=== PATIENT | male | born 1965 | race Two or more races ===

== ENCOUNTER 2016-11-24 18:19 | Inpatient (IN) | payer MEDICAID ==
[~2016-11-24] VITALS: Ht 165.1 cm; Wt 104.6 kg
[~2016-11-24 18:19] MED LIST: AML5T PO; ASCO500T11 PO; FUR40T PO; INSLANTI SC; METHADONE PO; SPIR25TA88 PO
[2016-11-24] MEDS ORDERED: cloNIDine HCL 0.1 MG TAB PO ONE (19:15)
[2016-11-24] MEDS: ALBUTEROL SULF 2.5 MG/0.5ML(0.5%) NEB SOLN NEB ONE ×2 (19:15→19:30)
[2016-11-24] MEDS ORDERED: IPRATROPIUM BROM 0.5 MG/2.5ML INH SOL NEB ONE (19:15)
[2016-11-24 19:54] LABS: Basophils # (auto) 0 uL; Basophils % (auto) 0.4 % (0.0-2.0); Eosinophils # (auto) 0.2 uL; Eosinophils % (auto) 2.5 % (0.0-7.0); Hematocrit 32.8 % (41.0-53.0); Hemoglobin 10.5 g/dL (13.5-17.5); Lymphocytes # (auto) 1.1 uL; Lymphocytes % (auto) 12.2 % (10.0-50.0); Mean Corpuscular Hgb Conc. 32.1 g/dL (32.0-36.0); Mean Corpuscular Volume 87.3 fL (80.0-100.0); Mean Platelet Volume 8.2 fL (7.4-10.4); Monocytes # (auto) 0.7 uL; Monocytes % (auto) 7.5 % (0.0-12.0); Neutrophils # (auto) 6.9 uL; Neutrophils % (auto) 77.4 % (37.0-80.0); Platelet Count (auto) 121 10^3/uL (140-450); Red Cell Distribution Width 17.1 % (11.6-16.0); White Blood Cell 8.9 10^3/uL (4.4-10.8)
[2016-11-24 20:13] LABS: Albumin 2.7 g/dL (3.4-5.0); BUN/Creatinine Ratio 6.4; Calcium 6.5 mg/dL (8.5-10.1)
[2016-11-24 20:16] LABS: Bilirubin, Total 0.4 mg/dL (0.2-1.0); Total Protein 7.7 g/dL (6.4-8.2)
[2016-11-24 20:27] LABS: Temperature: 21.9 C (20.0-25.0)
[2016-11-24] MEDS ORDERED: ALBUTEROL SULF 2.5 MG/0.5ML(0.5%) NEB SOLN NEB STA (20:43)
[2016-11-24] MEDS ORDERED: InsuLIN REG 1unit/0.01ml Soln (100units/ml) IV ONE (20:45)
[2016-11-24] MEDS ORDERED: DEXTROSE (50%) 50ML SYRG IV ONE (20:45)
[2016-11-24] MEDS ORDERED: SODIUM POLYSTYRENE SULF 15GM/60ML SUSP PO ONE (20:45)
[2016-11-24] MEDS ORDERED: SODIUM BICARBONATE 8.4% INJ 50ML SYRINGE IV ONE (20:45)
[2016-11-24] MEDS ORDERED: CALCIUM GLUC 4.65 MEQ/10ML 4.65 MEQ in SODIUM CHL 0.9% 50 ML IV ONE (20:45)
[2016-11-24] MEDS ORDERED: CALCIUM GLUC 4.65 MEQ/10ML IV ONE (20:49)
[2016-11-24 20:52] LABS: Potassium 5.9 mmol/L (3.5-5.1)
[2016-11-24] MEDS ORDERED: ACETAMINOPHEN 325 MG TAB PO PRN (23:00)
[2016-11-24] MEDS ORDERED: DOCUSATE SOD 100 MG CAP PO PRN (23:00)
[2016-11-24] MEDS ORDERED: cloNIDine HCL 0.1 MG TAB PO PRN (23:00)
[2016-11-24] MEDS ORDERED: TEMAZEPAM 15 MG CAP PO PRN (23:00)
[2016-11-24] MEDS ORDERED: NITROGLYCERIN 0.4 MG SL TAB SL PRN (23:00)
[2016-11-24] MEDS ORDERED: HYDROcodone-ACET 5/325MG TAB PO PRN (23:00)
[2016-11-24] MEDS ORDERED: DEXTROSE (50%) 50ML SYRG IV PRN (23:00)
[2016-11-24] MEDS ORDERED: LEVOFLOXACIN 250MG 50 ML IV SCH (23:00)
[2016-11-24] MEDS ORDERED: ONDANSETRON HCL 4 MG/2 ML VIAL IV PRN (23:00)
[2016-11-24] MEDS ORDERED: MORPHINE SULF INJ 2 MG/ML SYRINGE 1ML IV PRN (23:00)
[2016-11-25 00:30] VITALS: BP 156/74
[2016-11-25] MEDS: ACCU-CHEK COMFORT CURVE STRIP VI SCH ×3 (00:44→12:03)
[2016-11-25] MEDS: InsuLIN REG 1unit/0.01ml Soln (100units/ml) SC SCH ×3 (00:45→12:00)
[2016-11-25] MEDS ORDERED: AMLO5TAB2 PO (03:06)
[2016-11-25] MEDS ORDERED: B-CO-5 OR (03:06)
[2016-11-25 05:00] VITALS: BP 180/81
[2016-11-25] MEDS: MORPHINE SULF INJ 2 MG/ML SYRINGE 1ML IV PRN ×2 (05:00→13:10)
[2016-11-25 09:00] VITALS: BP 162/80
[2016-11-25] MEDS ORDERED: ENOXAPARIN SOD 30 MG/0.3 ML SYRINGE SC SCH (10:00)
[2016-11-25] MEDS ORDERED: B-COMPLEX W/ C & FOLIC ACID(NEPHROVITE TAB) PO SCH (10:00)
[2016-11-25] MEDS ORDERED: FUROSEMIDE 40 MG TAB PO SCH (10:00)
[2016-11-25] MEDS ORDERED: amLODIPine BESYLATE 5 MG TAB PO SCH (10:00)
[2016-11-25] MEDS ORDERED: SPIRONOLACTONE 25 MG TAB PO SCH (10:00)
[2016-11-25] MEDS ORDERED: FAMOTIDINE 20 MG TAB PO SCH ×2 (10:00)
[2016-11-25 13:00] VITALS: BP 148/80
[2016-11-25 15:25] VITALS: BP 162/84
== END 2016-11-25 16:46 | disposition home or self-care (01) | DRG 140 ==
LOC: ER 18:20 → TELE 18:21 → TELE-WESTW 23:25
PROVIDERS: ADMIT Nurse Practitioner; ATTEND Internal Medicine
DX: J44.0 Chronic obstructive pulmonary disease with (acute) lower respiratory infection (principal); E43 Unspecified severe protein-calorie malnutrition; I13.2 Hypertensive heart and chronic kidney disease with heart failure and with stage 5 chronic kidney disease, or end stage renal disease; J18.9 Pneumonia, unspecified organism; N17.9 Acute kidney failure, unspecified; N18.6 End stage renal disease; E11.22 Type 2 diabetes mellitus with diabetic chronic kidney disease; E87.5 Hyperkalemia; D63.8 Anemia in other chronic diseases classified elsewhere; I50.9 Heart failure, unspecified; K76.9 Liver disease, unspecified; F17.210 Nicotine dependence, cigarettes, uncomplicated; Z83.3 Family history of diabetes mellitus; Z79.899 Other long term (current) drug therapy; Z79.4 Long term (current) use of insulin; Z82.3 Family history of stroke; Z68.38 Body mass index [BMI] 38.0-38.9, adult; Z99.2 Dependence on renal dialysis; Z80.9 Family history of malignant neoplasm, unspecified; Z91.11 Patient's noncompliance with dietary regimen
CPT/HCPCS: 36415; 70450; 71010; 80053; 82962; 83880; 84132; 84484; 85025; 87040; 87081; 94640; 96365; 96367; 96375; J1815

== ENCOUNTER 2016-12-14 19:36 | Emergency (ER) | payer MEDICAID ==
[~2016-12-14] VITALS: Ht 162.6 cm; Wt 108.9 kg
[~2016-12-14 19:36] MED LIST changes: -AML5T PO; +AMLO5TAB2 PO; -ASCO500T11 PO; +B-CO-5 OR
[2016-12-15] MEDS ORDERED: SODIUM CHLORIDE 0.9% 1,000 ML IV ONE (00:34)
[2016-12-15] MEDS ORDERED: HYDROmorphone HCL 2 MG/ML VL IV ONE (00:45)
[2016-12-15] MEDS ORDERED: ONDANSETRON HCL 4 MG/2 ML VIAL IV ONE (00:45)
[2016-12-15 01:40] LABS: Hematocrit 32.3 % (41.0-53.0); Hemoglobin 10.2 g/dL (13.5-17.5); Mean Corpuscular Hemoglobin 28.3 pg (28.0-32.0); Mean Corpuscular Hgb Conc. 31.6 g/dL (32.0-36.0); Mean Corpuscular Volume 89.4 fL (80.0-100.0); Platelet Count (auto) 119 10^3/uL (140-450); Red Cell Distribution Width 15.5 % (11.6-16.0); SUSPECT VIEW TRANSMISSION
[2016-12-15 01:43] LABS: Metamyelocytes % 0; Myelocytes % 0; Promyelocytes % 0; Reactive Lymphocytes 0
[2016-12-15 02:01] LABS: Platelet Estimate Decreased
[2016-12-15 02:04] LABS: Albumin 2.8 g/dL (3.4-5.0); BUN/Creatinine Ratio 8.1; Bilirubin, Total 0.3 mg/dL (0.2-1.0); Calcium 7.4 mg/dL (8.5-10.1); Potassium 5.4 mmol/L (3.5-5.1); Total Protein 7.7 g/dL (6.4-8.2)
[2016-12-15 02:36] LABS: Temperature: 20.9 C (20.0-25.0)
[2016-12-15] MEDS ORDERED: SODIUM POLYSTYRENE SULF 15GM/60ML SUSP PO ONE ×2 (04:00→04:30)
[2016-12-15] MEDS ORDERED: HYDROmorphone HCL 2 MG/ML VL IM ONE (04:15)
[2016-12-15] MEDS ORDERED: FUROSEMIDE 20 MG TAB PO ONE (04:15)
[2016-12-15] MEDS ORDERED: ONDANSETRON HCL 4 MG/2 ML VIAL IM ONE (04:15)
[2016-12-15 05:09] LABS: Urine Bilirubin Negative (Negative); Urine Blood Negative /uL (Negative); Urine Color Yellow (Yellow); Urine Hyaline Cast FEW /lpf (0 - 2); Urine Ketone Negative (Negative); Urine Mucus FEW (None Seen); Urine Nitrite Negative (Negative); Urine RBC 4 /hpf (0 - 3); Urine Squamous Epithelial Cell FEW /hpf (<5); Urine Urobilinogen Normal (Negative); Urine pH 8.5 (5.0-8.0)
[2016-12-15 05:10] LABS: Urine Glucose 3+ mg/dL (Normal)
[2016-12-15 05:30] VITALS: BP 161/89
== END 2016-12-15 04:20 | disposition home or self-care (01) ==
LOC: ER 19:39
DX: I13.2 Hypertensive heart and chronic kidney disease with heart failure and with stage 5 chronic kidney disease, or end stage renal disease (principal); I50.9 Heart failure, unspecified; N18.6 End stage renal disease; D63.1 Anemia in chronic kidney disease; R51 Headache; E87.5 Hyperkalemia; J44.9 Chronic obstructive pulmonary disease, unspecified; Z99.2 Dependence on renal dialysis; F17.210 Nicotine dependence, cigarettes, uncomplicated
CPT/HCPCS: 36415; 71010; 80053; 81001; 83880; 84484; 85007; 85027; 96372; 96374; 96375; 99285; J1170; J2405; 93005

== ENCOUNTER 2016-12-15 20:05 | Emergency (ER) | payer MEDICAID ==
[~2016-12-15] VITALS: Ht 172.7 cm; Wt 90.7 kg
[2016-12-15] MEDS ORDERED: HYDROmorphone HCL 2 MG/ML VL IV ONE ×2 (21:30→23:45)
[2016-12-15] MEDS ORDERED: ONDANSETRON HCL 4 MG/2 ML VIAL IV ONE (21:30)
[2016-12-15 21:50] LABS: Basophils # (auto) 0 uL; Basophils % (auto) 0.5 % (0.0-2.0); Eosinophils # (auto) 0.4 uL; Eosinophils % (auto) 5.4 % (0.0-7.0); Hematocrit 30.3 % (41.0-53.0); Hemoglobin 9.5 g/dL (13.5-17.5); Lymphocytes # (auto) 1.1 uL; Lymphocytes % (auto) 13.3 % (10.0-50.0); Mean Corpuscular Hemoglobin 27.3 pg (28.0-32.0); Mean Corpuscular Hgb Conc. 31.5 g/dL (32.0-36.0); Mean Corpuscular Volume 86.8 fL (80.0-100.0); Monocytes # (auto) 0.7 uL; Monocytes % (auto) 8.2 % (0.0-12.0); Neutrophils # (auto) 5.9 uL; Neutrophils % (auto) 72.6 % (37.0-80.0); Platelet Count (auto) 154 10^3/uL (140-450); White Blood Cell 8.1 10^3/uL (4.4-10.8)
[2016-12-15 22:06] LABS: Albumin 2.8 g/dL (3.4-5.0); BUN/Creatinine Ratio 7.5; Bilirubin, Total 0.4 mg/dL (0.2-1.0); Calcium 7.5 mg/dL (8.5-10.1); Total Protein 7.7 g/dL (6.4-8.2)
[2016-12-15 22:14] LABS: Potassium 5.6 mmol/L (3.5-5.1)
[2016-12-15] MEDS ORDERED: SODIUM POLYSTYRENE SULF 15GM/60ML SUSP PO ONE (23:45)
[2016-12-16] MEDS ORDERED: LEVOFLOXACIN 500 MG TAB PO ONE (02:45)
[2016-12-16 04:04] VITALS: BP 168/80
== END 2016-12-16 06:02 | disposition home or self-care (01) ==
LOC: EDBD 20:05 → ER 20:10
DX: J18.9 Pneumonia, unspecified organism (principal); E87.5 Hyperkalemia; R51 Headache; E11.22 Type 2 diabetes mellitus with diabetic chronic kidney disease; I13.11 Hypertensive heart and chronic kidney disease without heart failure, with stage 5 chronic kidney disease, or end stage renal disease; I50.9 Heart failure, unspecified; N18.6 End stage renal disease; F17.210 Nicotine dependence, cigarettes, uncomplicated; J44.9 Chronic obstructive pulmonary disease, unspecified; J45.909 Unspecified asthma, uncomplicated; Z99.2 Dependence on renal dialysis
CPT/HCPCS: 36415; 80053; 85025; 96374; 96375; 96376; 99284; J1170; J2405

== ENCOUNTER 2017-02-25 01:54 | Inpatient (IN) | payer MEDICAID ==
[~2017-02-25] VITALS: Ht 165.1 cm; Wt 89.2 kg
[2017-02-25 02:36] LABS: Basophils # (auto) 0 uL; Basophils % (auto) 0.3 % (0.0-2.0); Eosinophils # (auto) 0.3 uL; Eosinophils % (auto) 4.2 % (0.0-7.0); Hematocrit 34.2 % (41.0-53.0); Lymphocytes # (auto) 0.8 uL; Lymphocytes % (auto) 12.9 % (10.0-50.0); Mean Corpuscular Hemoglobin 28.6 pg (28.0-32.0); Mean Corpuscular Hgb Conc. 32.1 g/dL (32.0-36.0); Mean Corpuscular Volume 89.2 fL (80.0-100.0); Mean Platelet Volume 7.8 fL (7.4-10.4); Monocytes # (auto) 0.4 uL; Monocytes % (auto) 6.9 % (0.0-12.0); Neutrophils # (auto) 4.5 uL; Neutrophils % (auto) 75.7 % (37.0-80.0); Platelet Count (auto) 102 10^3/uL (140-450); Red Cell Distribution Width 17.1 % (11.6-16.0); White Blood Cell 5.9 10^3/uL (4.4-10.8)
[2017-02-25] MEDS ORDERED: ONDANSETRON HCL 4 MG/2 ML VIAL IV ONE (02:45)
[2017-02-25] MEDS ORDERED: HYDROmorphone HCL 2 MG/ML VL IV ONE ×2 (02:45→06:00)
[2017-02-25 02:56] LABS: INR 1.07 (0.9-1.15); Partial Thromboplastin Time 28.2 sec (22.64-33.71); Prothrombin Time 11.6 sec (9.37-12.3)
[2017-02-25 03:09] LABS: Temperature: 21.9 C (20.0-25.0)
[2017-02-25 03:11] LABS: Albumin 3.7 g/dL (3.4-5.0); Anion Gap 10 (5-15); Aspartate Aminotransferase 37 U/L (15-37); BUN/Creatinine Ratio 5.8; Blood Urea Nitrogen 33 mg/dL (7-18); Calcium 7.1 mg/dL (8.5-10.1); Carbon Dioxide 27 mmol/L (21-32); Chloride 101 mmol/L (98-107); GFR African American 13 mL/min; GFR Non-African American 11 mL/min; Glucose 89 mg/dL (74-106); Sodium 138 mmol/L (136-145)
[2017-02-25 03:16] LABS: Alkaline Phosphatase 142 U/L (45-117); Bilirubin, Total 0.6 mg/dL (0.2-1.0); Potassium 5.6 mmol/L (3.5-5.1); Total Protein 8.4 g/dL (6.4-8.2)
[2017-02-25] MEDS ORDERED: SODIUM POLYSTYRENE SULF 15GM/60ML SUSP PO ONE (03:30)
[2017-02-25] MEDS ORDERED: HYDROmorphone HCL 2 MG/ML VL ONE (05:49)
[2017-02-25 06:42] LABS: Albumin 3.5 g/dL (3.4-5.0); BUN/Creatinine Ratio 6.4; Bilirubin, Total 0.5 mg/dL (0.2-1.0); Total Protein 8.2 g/dL (6.4-8.2)
[2017-02-25 06:49] LABS: Potassium 5.9 mmol/L (3.5-5.1)
[2017-02-25] MEDS ORDERED: ALBUTEROL SULF 2.5 MG/0.5ML(0.5%) NEB SOLN NEB STA (07:37)
[2017-02-25] MEDS ORDERED: CALCIUM GLUC 4.65 MEQ/10ML 4.65 MEQ in SODIUM CHL 0.9% 50 ML IV ONE ×2 (07:45→11:15)
[2017-02-25] MEDS ORDERED: DEXTROSE (50%) 50ML SYRG IV ONE ×2 (07:45→09:30)
[2017-02-25] MEDS ORDERED: FUROSEMIDE 40 MG/4 ML VIAL IV ONE (07:45)
[2017-02-25] MEDS ORDERED: SODIUM BICARBONATE 8.4% INJ 50ML SYRINGE IV ONE (07:45)
[2017-02-25] MEDS ORDERED: InsuLIN REG 1unit/0.01ml Soln (100units/ml) IV ONE (07:45)
[2017-02-25] MEDS ORDERED: DEXTROSE 50% SYRINGE 50 ML IV ONE (09:05)
[2017-02-25] MEDS ORDERED: ONDANSETRON HCL 4 MG/2 ML VIAL IV PRN (11:00)
[2017-02-25] MEDS ORDERED: cloNIDine HCL 0.1 MG TAB PO PRN (11:00)
[2017-02-25] MEDS ORDERED: DEXTROSE (50%) 50ML SYRG IV PRN (11:00)
[2017-02-25] MEDS ORDERED: MORPHINE SULF INJ 2 MG/ML SYRINGE 1ML IV PRN (11:00)
[2017-02-25] MEDS ORDERED: ACETAMINOPHEN 325 MG TAB PO PRN (11:00)
[2017-02-25] MEDS ORDERED: LACTULOSE 20Gm/30ML SOLN PO PRN (11:00)
[2017-02-25] MEDS ORDERED: DOCUSATE SOD 100 MG CAP PO PRN (11:00)
[2017-02-25] MEDS ORDERED: TEMAZEPAM 15 MG CAP PO PRN (11:00)
[2017-02-25] MEDS ORDERED: NITROGLYCERIN 0.4 MG SL TAB SL PRN (11:00)
[2017-02-25] MEDS ORDERED: cefTRIAXone 1GM/50ML D5W 50 ML IV ONE (11:00)
[2017-02-25] MEDS ORDERED: SODIUM CHL 0.9% 1000 ML BAG XX ONE (11:00)
[2017-02-25] MEDS: ASCORBIC ACID 500 MG TAB PO SCH (11:15)
[2017-02-25] MEDS: B-COMPLEX W/ C & FOLIC ACID(NEPHROVITE TAB) PO SCH (11:15)
[2017-02-25] MEDS: amLODIPine BESYLATE 5 MG TAB PO SCH (11:15)
[2017-02-25] MEDS: MULTIPLE VITAMIN TAB PO SCH (11:15)
[2017-02-25] MEDS: FAMOTIDINE 20 MG TAB PO SCH (11:15)
[2017-02-25] MEDS: ACCU-CHEK COMFORT CURVE STRIP VI SCH ×3 (11:30→21:29)
[2017-02-25] MEDS: InsuLIN REG 1unit/0.01ml Soln (100units/ml) SC SCH ×3 (11:30→21:54)
[2017-02-25] MEDS: IPRATROPIUM BROM 0.5 MG/2.5ML INH SOL NEB SCH ×2 (12:00→18:43)
[2017-02-25] MEDS: ALBUTEROL SULF 2.5 MG/0.5ML(0.5%) NEB SOLN NEB SCH ×2 (12:00→18:43)
[2017-02-25] MEDS: HYDROcodone-ACET 5/325MG TAB PO PRN ×3 (13:35→21:55)
[2017-02-25] MEDS: SODIUM CHLOR 0.9% PF (SALINE LOCK) 10ML VIAL IV SCH ×2 (14:00→21:29)
[2017-02-25 14:22] VITALS: BP 138/66
[2017-02-25 16:51] VITALS: BP 153/78
[2017-02-25] MEDS: MORPHINE SULF INJ 2 MG/ML SYRINGE 1ML IV PRN ×2 (17:01→19:45)
[2017-02-25 21:32] VITALS: BP 171/77
[2017-02-25] MEDS ORDERED: FAMOTIDINE 20 MG TAB PO SCH (22:00)
[2017-02-26 00:27] VITALS: BP 134/77
[2017-02-26] MEDS: HYDROcodone-ACET 5/325MG TAB PO PRN ×3 (02:45→12:30)
[2017-02-26 04:51] VITALS: BP 146/76
[2017-02-26] MEDS: SODIUM CHLOR 0.9% PF (SALINE LOCK) 10ML VIAL IV SCH (05:37)
[2017-02-26] MEDS: InsuLIN REG 1unit/0.01ml Soln (100units/ml) SC SCH ×2 (06:30→11:30)
[2017-02-26] MEDS: ACCU-CHEK COMFORT CURVE STRIP VI SCH ×2 (06:30→11:30)
[2017-02-26] MEDS ORDERED: INSULIN DETEMIR(LEVEMIR) 1unit/0.01ml Soln (100units/ml) SC SCH (07:00)
[2017-02-26] MEDS: IPRATROPIUM BROM 0.5 MG/2.5ML INH SOL NEB SCH (07:15)
[2017-02-26] MEDS: ALBUTEROL SULF 2.5 MG/0.5ML(0.5%) NEB SOLN NEB SCH (07:15)
[2017-02-26] MEDS: MULTIPLE VITAMIN TAB PO SCH (08:19)
[2017-02-26] MEDS: B-COMPLEX W/ C & FOLIC ACID(NEPHROVITE TAB) PO SCH (08:19)
[2017-02-26] MEDS: ASCORBIC ACID 500 MG TAB PO SCH (08:20)
[2017-02-26] MEDS: FAMOTIDINE 20 MG TAB PO SCH (08:20)
[2017-02-26] MEDS: amLODIPine BESYLATE 5 MG TAB PO SCH (08:30)
[2017-02-26] MEDS ORDERED: cefTRIAXone 1GM/50ML D5W 50 ML IV SCH (09:00)
[2017-02-27] MEDS ORDERED: SODIUM CHL 0.9% 1000 ML BAG XX ONE (08:00)
== END 2017-02-26 16:25 | disposition home or self-care (01) | DRG 425 ==
LOC: ER 01:56 → OBSVTOIN 01:57 → INTOOBSV 01:57 → TELE 01:57 → TELE-E-ADS 12:08 → TELE-CENTR 13:11 → UNDODISOB 02-26 13:33
PROVIDERS: ADMIT Internal Medicine; ATTEND Internal Medicine
PROC: 5A1D00Z (ICD-10-PCS; principal; 2017-02-25)
DX: E87.5 Hyperkalemia (principal); J96.20 Acute and chronic respiratory failure, unspecified whether with hypoxia or hypercapnia; I50.43 Acute on chronic combined systolic (congestive) and diastolic (congestive) heart failure; N18.6 End stage renal disease; J44.0 Chronic obstructive pulmonary disease with (acute) lower respiratory infection; D69.6 Thrombocytopenia, unspecified; E10.21 Type 1 diabetes mellitus with diabetic nephropathy; K74.60 Unspecified cirrhosis of liver; J45.901 Unspecified asthma with (acute) exacerbation; E87.70 Fluid overload, unspecified; E10.22 Type 1 diabetes mellitus with diabetic chronic kidney disease; I13.2 Hypertensive heart and chronic kidney disease with heart failure and with stage 5 chronic kidney disease, or end stage renal disease; E83.51 Hypocalcemia; D63.8 Anemia in other chronic diseases classified elsewhere; J20.9 Acute bronchitis, unspecified; Z99.2 Dependence on renal dialysis; F17.210 Nicotine dependence, cigarettes, uncomplicated; Z82.3 Family history of stroke; Z83.3 Family history of diabetes mellitus; Z80.9 Family history of malignant neoplasm, unspecified; Z99.81 Dependence on supplemental oxygen
CPT/HCPCS: 36415; 71010; 80053; 82962; 83036; 83880; 84132; 84484; 85025; 85610; 85730; 87040; 87081; 93005; 94640; 94644; 96374; 96375; 96376; J0696; J1642; J1815; J2405

== ENCOUNTER 2017-03-11 21:55 | Inpatient (IN) | payer MEDICAID ==
[~2017-03-11] VITALS: Ht 170.2 cm; Wt 91.0 kg
[2017-03-11 22:43] LABS: Basophils # (auto) 0 uL; Basophils % (auto) 0.5 % (0.0-2.0); Eosinophils # (auto) 0.2 uL; Eosinophils % (auto) 4.2 % (0.0-7.0); Hematocrit 31.3 % (41.0-53.0); Hemoglobin 10.3 g/dL (13.5-17.5); Lymphocytes # (auto) 0.9 uL; Lymphocytes % (auto) 21.8 % (10.0-50.0); Mean Corpuscular Hgb Conc. 32.8 g/dL (32.0-36.0); Mean Corpuscular Volume 88.3 fL (80.0-100.0); Mean Platelet Volume 7.6 fL (7.4-10.4); Monocytes # (auto) 0.3 uL; Neutrophils # (auto) 2.7 uL; Neutrophils % (auto) 65.5 % (37.0-80.0); Platelet Count (auto) 105 10^3/uL (140-450); Red Cell Distribution Width 17.2 % (11.6-16.0); White Blood Cell 4.2 10^3/uL (4.4-10.8)
[2017-03-11 22:57] LABS: Albumin 3.6 g/dL (3.4-5.0); Calcium 7.1 mg/dL (8.5-10.1); Potassium 5.4 mmol/L (3.5-5.1)
[2017-03-11 23:02] LABS: BUN/Creatinine Ratio 6.4; Bilirubin, Total 0.5 mg/dL (0.2-1.0); Total Protein 8.1 g/dL (6.4-8.2)
[2017-03-11 23:22] LABS: INR 1.1 (0.9-1.15); Prothrombin Time 11.9 sec (9.37-12.3)
[2017-03-11 23:23] LABS: Partial Thromboplastin Time 28.5 sec (22.64-33.71)
[2017-03-11] MEDS ORDERED: HYDROcodone-ACET 5/325MG TAB PO ONE (23:45)
[2017-03-12] MEDS ORDERED: VANCOMYCIN 1GM/250ML D5W 250 ML IV ONE (00:15)
[2017-03-12] MEDS ORDERED: diphenhdrAMINE HCL 50 MG/1 ML VL IV ONE (01:30)
[2017-03-12] MEDS ORDERED: InsuLIN REG 1unit/0.01ml Soln (100units/ml) IV ONE (07:15)
[2017-03-12] MEDS ORDERED: ACETAMINOPHEN 325 MG TAB PO PRN (07:15)
[2017-03-12] MEDS ORDERED: CALCIUM GLUC 4.65 MEQ/10ML 4.65 MEQ in SODIUM CHL 0.9% 50 ML IV ONE (07:15)
[2017-03-12] MEDS ORDERED: MORPHINE SULF INJ 2 MG/ML SYRINGE 1ML IV PRN (07:15)
[2017-03-12] MEDS ORDERED: SODIUM BICARBONATE 8.4 % INJ 50ML VIAL IV ONE (07:15)
[2017-03-12] MEDS ORDERED: SODIUM POLYSTYRENE SULF 15GM/60ML SUSP PO ONE (07:15)
[2017-03-12] MEDS ORDERED: DEXTROSE (50%) 50ML SYRG IV PRN (07:15)
[2017-03-12] MEDS ORDERED: ONDANSETRON HCL 4 MG/2 ML VIAL IV PRN (07:15)
[2017-03-12] MEDS ORDERED: DEXTROSE (50%) 50ML SYRG IV ONE (07:15)
[2017-03-12 09:00] VITALS: BP 176/77
[2017-03-12] MEDS ORDERED: SPIRONOLACTONE 25 MG TAB PO SCH ×2 (10:00)
[2017-03-12] MEDS: ENOXAPARIN SOD 30 MG/0.3 ML SYRINGE SC SCH (10:00)
[2017-03-12] MEDS ORDERED: FAMOTIDINE 20 MG TAB PO SCH (10:00)
[2017-03-12] MEDS: amLODIPine BESYLATE 5 MG TAB PO SCH ×2 (10:30→10:38)
[2017-03-12] MEDS: METHADONE HCL 10 MG TAB PO SCH (10:31)
[2017-03-12] MEDS: FAMOTIDINE 20 MG TAB PO SCH (10:32)
[2017-03-12] MEDS: FUROSEMIDE 40 MG TAB PO SCH (10:32)
[2017-03-12] MEDS: HYDROcodone-ACET 10/325MG TAB PO PRN ×2 (10:37→15:03)
[2017-03-12] MEDS ORDERED: SODIUM CHL 0.9% 1000 ML BAG XX ONE ×2 (10:45)
[2017-03-12] MEDS ORDERED: EPOETIN ALFA 3,000 UNIT/1 ML VIAL IV ONE (10:45)
[2017-03-12 11:10] VITALS: BP 176/77
[2017-03-12] MEDS ORDERED: EPOETIN ALFA 2,000 UNIT/1 ML VIAL IV ONE (11:15)
[2017-03-12] MEDS: ACCU-CHEK COMFORT CURVE STRIP VI SCH ×2 (12:00→18:00)
[2017-03-12] MEDS: InsuLIN REG 1unit/0.01ml Soln (100units/ml) SC SCH ×2 (12:00→18:00)
[2017-03-12 13:00] VITALS: BP 148/85
[2017-03-12] MEDS: CLINDAMYCIN 600MG IV 50 ML IV SCH ×2 (14:00→22:40)
[2017-03-12 15:15] VITALS: BP 176/77
[2017-03-12 17:00] VITALS: BP 143/89
[2017-03-13] MEDS: ACCU-CHEK COMFORT CURVE STRIP VI SCH ×4 (00:24→18:19)
[2017-03-13] MEDS: HYDROcodone-ACET 10/325MG TAB PO PRN ×4 (03:22→21:05)
[2017-03-13 05:13] VITALS: BP 166/82
[2017-03-13] MEDS: CLINDAMYCIN 600MG IV 50 ML IV SCH ×3 (05:47→22:44)
[2017-03-13] MEDS: InsuLIN REG 1unit/0.01ml Soln (100units/ml) SC SCH ×4 (06:00→18:00)
[2017-03-13 06:16] LABS: Basophils # (auto) 0 uL; Basophils % (auto) 0.6 % (0.0-2.0); Eosinophils # (auto) 0.2 uL; Eosinophils % (auto) 4.9 % (0.0-7.0); Hematocrit 31.5 % (41.0-53.0); Hemoglobin 10.2 g/dL (13.5-17.5); Lymphocytes # (auto) 1.4 uL; Lymphocytes % (auto) 27.6 % (10.0-50.0); Mean Corpuscular Hemoglobin 28.5 pg (28.0-32.0); Mean Corpuscular Hgb Conc. 32.4 g/dL (32.0-36.0); Mean Corpuscular Volume 88.1 fL (80.0-100.0); Mean Platelet Volume 7.9 fL (7.4-10.4); Monocytes # (auto) 0.5 uL; Monocytes % (auto) 9.7 % (0.0-12.0); Neutrophils # (auto) 2.8 uL; Neutrophils % (auto) 57.2 % (37.0-80.0); Platelet Count (auto) 99 10^3/uL (140-450); Red Cell Distribution Width 17.1 % (11.6-16.0); White Blood Cell 4.9 10^3/uL (4.4-10.8)
[2017-03-13 06:47] LABS: Albumin 3.4 g/dL (3.4-5.0); BUN/Creatinine Ratio 6.5; Bilirubin, Total 0.5 mg/dL (0.2-1.0); Potassium 5.2 mmol/L (3.5-5.1); Total Protein 7.8 g/dL (6.4-8.2)
[2017-03-13 09:00] VITALS: BP 161/77
[2017-03-13] MEDS: ENOXAPARIN SOD 30 MG/0.3 ML SYRINGE SC SCH (10:00)
[2017-03-13] MEDS: FUROSEMIDE 40 MG TAB PO SCH (10:00)
[2017-03-13] MEDS: METHADONE HCL 10 MG TAB PO SCH (10:00)
[2017-03-13] MEDS: FAMOTIDINE 20 MG TAB PO SCH (10:10)
[2017-03-13] MEDS ORDERED: B-COMPLEX W/ C & FOLIC ACID(NEPHROVITE TAB) PO ONE (10:15)
[2017-03-13 13:00] VITALS: BP 146/75
[2017-03-13] MEDS: DOCUSATE SOD 100 MG CAP PO PRN (13:31)
[2017-03-13 17:00] VITALS: BP 147/72
[2017-03-13 20:51] VITALS: BP 163/90
[2017-03-13] MEDS ORDERED: amLODIPine BESYLATE 5 MG TAB PO ONE (23:15)
[2017-03-14] MEDS: DOCUSATE SOD 100 MG CAP PO PRN (04:42)
[2017-03-14] MEDS: HYDROcodone-ACET 10/325MG TAB PO PRN ×3 (04:48→22:02)
[2017-03-14 04:56] VITALS: BP 166/78
[2017-03-14] MEDS: CLINDAMYCIN 600MG IV 50 ML IV SCH ×3 (06:00→14:51)
[2017-03-14] MEDS: InsuLIN REG 1unit/0.01ml Soln (100units/ml) SC SCH ×4 (06:00→18:00)
[2017-03-14] MEDS: ACCU-CHEK COMFORT CURVE STRIP VI SCH ×4 (06:22→18:19)
[2017-03-14 09:00] VITALS: BP 147/50
[2017-03-14] MEDS: B-COMPLEX W/ C & FOLIC ACID(NEPHROVITE TAB) PO SCH ×2 (10:00→14:45)
[2017-03-14] MEDS: FAMOTIDINE 20 MG TAB PO SCH ×2 (10:00→14:45)
[2017-03-14] MEDS: FUROSEMIDE 40 MG TAB PO SCH ×2 (10:00→14:46)
[2017-03-14] MEDS: METHADONE HCL 10 MG TAB PO SCH (10:00)
[2017-03-14] MEDS: ENOXAPARIN SOD 30 MG/0.3 ML SYRINGE SC SCH (10:00)
[2017-03-14] MEDS: amLODIPine BESYLATE 5 MG TAB PO SCH ×2 (10:00→14:45)
[2017-03-14 13:00] VITALS: BP 167/87
[2017-03-14] MEDS: CLINDAMYCIN HCL 150 MG CAP PO SCH ×2 (16:52→22:00)
[2017-03-14 17:00] VITALS: BP 166/79
[2017-03-14 21:09] VITALS: BP 153/81
[2017-03-15 04:51] VITALS: BP 151/77
[2017-03-15] MEDS: CLINDAMYCIN HCL 150 MG CAP PO SCH (05:54)
[2017-03-15] MEDS: ACCU-CHEK COMFORT CURVE STRIP VI SCH ×4 (05:54→18:00)
[2017-03-15] MEDS: InsuLIN REG 1unit/0.01ml Soln (100units/ml) SC SCH ×4 (05:55→18:00)
[2017-03-15 09:00] VITALS: BP 158/80
[2017-03-15] MEDS: B-COMPLEX W/ C & FOLIC ACID(NEPHROVITE TAB) PO SCH (09:10)
[2017-03-15] MEDS: METHADONE HCL 10 MG TAB PO SCH (10:00)
[2017-03-15] MEDS: FAMOTIDINE 20 MG TAB PO SCH (10:12)
[2017-03-15] MEDS: ENOXAPARIN SOD 30 MG/0.3 ML SYRINGE SC SCH (10:13)
[2017-03-15] MEDS: FUROSEMIDE 40 MG TAB PO SCH (10:20)
[2017-03-15] MEDS: amLODIPine BESYLATE 5 MG TAB PO SCH (10:20)
[2017-03-15] MEDS: HYDROcodone-ACET 10/325MG TAB PO PRN (10:45)
[2017-03-15 12:42] VITALS: BP 140/65
[2017-03-15] MEDS ORDERED: CLINDAMYCIN HCL 150 MG CAP PO SCH (14:00)
[2017-03-15 17:02] VITALS: BP 157/81
[2017-03-15 17:36] VITALS: BP 158/80
== END 2017-03-15 19:00 | disposition home or self-care (01) | DRG 194 ==
LOC: EDBD 21:55 → EDSEX 21:55 → ER 22:01 → OVERFLOW 22:02 → WEST WING 03-12 08:32
PROVIDERS: ADMIT Nurse Practitioner; ATTEND Internal Medicine
PROC: 5A1D60Z (ICD-10-PCS; principal; 2017-03-11)
DX: I13.2 Hypertensive heart and chronic kidney disease with heart failure and with stage 5 chronic kidney disease, or end stage renal disease (principal); N18.6 End stage renal disease; E11.22 Type 2 diabetes mellitus with diabetic chronic kidney disease; L03.116 Cellulitis of left lower limb; K74.60 Unspecified cirrhosis of liver; I50.33 Acute on chronic diastolic (congestive) heart failure; J44.9 Chronic obstructive pulmonary disease, unspecified; Z99.2 Dependence on renal dialysis; D63.1 Anemia in chronic kidney disease; E87.6 Hypokalemia; F11.90 Opioid use, unspecified, uncomplicated; F17.210 Nicotine dependence, cigarettes, uncomplicated; I89.0 Lymphedema, not elsewhere classified; Z82.3 Family history of stroke; Z83.3 Family history of diabetes mellitus; Z86.711 Personal history of pulmonary embolism; Z79.4 Long term (current) use of insulin; Z80.9 Family history of malignant neoplasm, unspecified; E87.5 Hyperkalemia; F19.10 Other psychoactive substance abuse, uncomplicated
CPT/HCPCS: 36415; 71010; 80053; 82962; 84132; 84484; 85025; 85379; 85610; 85730; 87040; 87081; 90935; 93005; 93970; 94761; 96365; 96375; J1642; J1815; J2405; J3490; Q4081

== ENCOUNTER 2017-06-18 19:35 | Inpatient (IN) | payer MEDICAID ==
[~2017-06-18] VITALS: Ht 162.6 cm; Wt 79.4 kg
[2017-06-18 21:42] LABS: Basophils # (auto) 0 uL; Basophils % (auto) 0.4 % (0.0-2.0); CONDITION Y; Eosinophils # (auto) 0.2 uL; Eosinophils % (auto) 4.5 % (0.0-7.0); Hematocrit 29.9 % (41.0-53.0); Hemoglobin 9.9 g/dL (13.5-17.5); Lymphocytes # (auto) 1.1 uL; Lymphocytes % (auto) 23.6 % (10.0-50.0); Mean Corpuscular Hemoglobin 29.1 pg (28.0-32.0); Mean Corpuscular Hgb Conc. 33.2 g/dL (32.0-36.0); Mean Corpuscular Volume 87.6 fL (80.0-100.0); Mean Platelet Volume 7.8 fL (7.4-10.4); Monocytes # (auto) 0.4 uL; Monocytes % (auto) 8.2 % (0.0-12.0); Neutrophils # (auto) 2.8 uL; Neutrophils % (auto) 63.3 % (37.0-80.0); Platelet Count (auto) 92 10^3/uL (140-450); Red Cell Distribution Width 16.5 % (11.6-16.0); White Blood Cell 4.5 10^3/uL (4.4-10.8)
[2017-06-18 21:57] LABS: Albumin 3.1 g/dL (3.4-5.0); B-Type Natriuretic Peptide 4168.64 pg/mL (0-100); BUN/Creatinine Ratio 5.3; Bilirubin, Total 0.4 mg/dL (0.2-1.0); Calcium 7.3 mg/dL (8.5-10.1); Magnesium 2.4 mg/dL (1.6-2.6); Total Protein 7.2 g/dL (6.4-8.2)
[2017-06-18 22:06] LABS: INR 1.11 (0.9-1.15); Partial Thromboplastin Time 30.3 sec (22.64-33.71); Prothrombin Time 12.1 sec (9.37-12.3)
[2017-06-18 22:08] LABS: Temperature: 21.9 C (20.0-25.0)
[2017-06-19] VITALS (7 sets, daily range): BP systolic 131–185; BP diastolic 70–92
[2017-06-19] MEDS ORDERED: cloNIDine HCL 0.1 MG TAB PO ONE (03:45)
[2017-06-19] MEDS ORDERED: cefTRIAXone 1GM/50ML D5W 50 ML IV ONE (04:00)
[2017-06-19] MEDS ORDERED: NITROGLYCERIN 0.4 MG SL TAB SL PRN (04:00)
[2017-06-19] MEDS ORDERED: AZITHROMYCIN 500MG/D5W 250ML 250 ML IV ONE (04:00)
[2017-06-19] MEDS ORDERED: MORPHINE SULF INJ 2 MG/ML SYRINGE 1ML IV PRN (04:00)
[2017-06-19] MEDS ORDERED: ALBUTEROL SULF 2.5 MG/0.5ML(0.5%) NEB SOLN NEB PRN (04:00)
[2017-06-19] MEDS ORDERED: LACTULOSE 20Gm/30ML SOLN PO PRN ×2 (04:00)
[2017-06-19] MEDS ORDERED: ACETAMINOPHEN 325 MG TAB PO PRN (04:00)
[2017-06-19] MEDS: IPRATROPIUM BROM 0.5 MG/2.5ML INH SOL NEB SCH ×5 (05:47→22:00)
[2017-06-19] MEDS ORDERED: SPIRONOLACTONE 25 MG TAB PO SCH (06:00)
[2017-06-19] MEDS ORDERED: FUROSEMIDE 40 MG/4 ML VIAL IV SCH (06:00)
[2017-06-19] MEDS: SEVELAMER 800 MG TAB PO SCH ×3 (08:00→18:12)
[2017-06-19] MEDS ORDERED: EPOETIN ALFA 10,000 UNIT/1 ML VIAL IV ONE (08:45)
[2017-06-19] MEDS: HYDROcodone-ACET 5/325MG TAB PO PRN ×2 (09:08→23:38)
[2017-06-19] MEDS ORDERED: methylPREDNISolone SOD SUCC 125 MG/2 ML VL IV SCH (10:00)
[2017-06-19] MEDS ORDERED: HEPARIN 1,000 UNITS/ml 1ML VIAL IV ONE (14:00)
[2017-06-19] MEDS: PANTOPRAZOLE SODIUM 40 MG/10 ML VIAL IV SCH (16:45)
[2017-06-19] MEDS: amLODIPine BESYLATE 5 MG TAB PO SCH (16:46)
[2017-06-19] MEDS: ENOXAPARIN SOD 30 MG/0.3 ML SYRINGE SC SCH (16:46)
[2017-06-19] MEDS: ENALAPRIL MALEATE 10 MG TAB PO SCH ×2 (18:14→21:27)
[2017-06-19] MEDS: BUDESONIDE (INHALATION) 0.5 MG/2 ML NEB NEB SCH (19:14)
[2017-06-19] MEDS: cloNIDine HCL 0.1 MG TAB PO PRN (23:51)
[2017-06-20] MEDS: IPRATROPIUM BROM 0.5 MG/2.5ML INH SOL NEB SCH ×3 (02:00→11:40)
[2017-06-20 05:00] VITALS: BP 169/70
[2017-06-20] MEDS: cloNIDine HCL 0.1 MG TAB PO PRN (06:29)
[2017-06-20] MEDS: HYDROcodone-ACET 5/325MG TAB PO PRN (06:30)
[2017-06-20] MEDS: BUDESONIDE (INHALATION) 0.5 MG/2 ML NEB NEB SCH (06:34)
[2017-06-20] MEDS: SEVELAMER 800 MG TAB PO SCH (07:50)
[2017-06-20 08:00] VITALS: BP 157/71
[2017-06-20] MEDS ORDERED: cefTRIAXone 1GM/50ML D5W 50 ML IV SCH (09:00)
[2017-06-20 09:44] VITALS: BP 157/77
[2017-06-20] MEDS: PANTOPRAZOLE SODIUM 40 MG/10 ML VIAL IV SCH (09:55)
[2017-06-20] MEDS: ENOXAPARIN SOD 30 MG/0.3 ML SYRINGE SC SCH (09:57)
[2017-06-20] MEDS: amLODIPine BESYLATE 5 MG TAB PO SCH (09:57)
[2017-06-20] MEDS: ENALAPRIL MALEATE 10 MG TAB PO SCH (09:58)
[2017-06-20] MEDS ORDERED: AZITHROMYCIN 500MG/D5W 250ML 250 ML IV SCH (10:00)
[2017-06-20 11:03] VITALS: BP 169/89
== END 2017-06-20 11:10 | disposition left against medical advice (07) | DRG 194 ==
LOC: ER 19:46 → EDUNIT# 19:47 → TELE 19:47 → ICU CENTRL 06-19 08:32 → DOU IN ICU 06-19 08:58 → TELE-CENTR 06-19 22:53
PROVIDERS: ADMIT Family Medicine; ATTEND Internal Medicine
PROC: 5A1D00Z (ICD-10-PCS; principal; 2017-06-20)
DX: I13.2 Hypertensive heart and chronic kidney disease with heart failure and with stage 5 chronic kidney disease, or end stage renal disease (principal); J18.9 Pneumonia, unspecified organism; N25.81 Secondary hyperparathyroidism of renal origin; N18.6 End stage renal disease; E11.22 Type 2 diabetes mellitus with diabetic chronic kidney disease; J44.9 Chronic obstructive pulmonary disease, unspecified; D63.8 Anemia in other chronic diseases classified elsewhere; I50.33 Acute on chronic diastolic (congestive) heart failure; F17.210 Nicotine dependence, cigarettes, uncomplicated; Z99.2 Dependence on renal dialysis; J98.11 Atelectasis; F12.90 Cannabis use, unspecified, uncomplicated; Z53.21 Procedure and treatment not carried out due to patient leaving prior to being seen by health care provider; Z88.1 Allergy status to other antibiotic agents
CPT/HCPCS: 36415; 70450; 71010; 73502; 80053; 83735; 83880; 84484; 85025; 85610; 85730; 87040; 87081; 90935; 93005; 94640; 94761; 96365; 96367; 96375; C9113; J0696; J0885

== ENCOUNTER 2017-07-12 04:12 | Emergency (ER) | payer MEDICAID ==
[~2017-07-12] VITALS: Ht 165.1 cm; Wt 72.6 kg
[2017-07-12] MEDS ORDERED: hydrALAZINE HCL 20 MG/ML VL IV ONE (05:30)
[2017-07-12] MEDS ORDERED: LABETALOL HCL 5 MG/ML ML 20ML VIAL IV ONE (06:45)
[2017-07-12 10:42] VITALS: BP 167/79
== END 2017-07-12 10:43 | disposition home or self-care (01) ==
LOC: EDUNIT# 04:13 → ER 04:13
DX: I12.0 Hypertensive chronic kidney disease with stage 5 chronic kidney disease or end stage renal disease (principal); E11.22 Type 2 diabetes mellitus with diabetic chronic kidney disease; N18.6 End stage renal disease; H92.21 Otorrhagia, right ear; Z99.2 Dependence on renal dialysis; J44.9 Chronic obstructive pulmonary disease, unspecified; F17.210 Nicotine dependence, cigarettes, uncomplicated
CPT/HCPCS: 94761; 96374; 96375; 99285; J0360

== ENCOUNTER 2017-09-11 23:29 | Emergency (ER) | payer MEDICAID ==
[~2017-09-11] VITALS: Ht 162.6 cm; Wt 81.6 kg
[~2017-09-11 23:29] MED LIST changes: -AMLO5TAB2 PO; -B-CO-5 OR; +CLON0.2T PO; +HYDR50TA15 PO; +LISI-646 PO; -METHADONE PO; +NIFE90TA30 PO; -SPIR25TA88 PO; +SPIR50TA23 PO
[2017-09-11] MEDS ORDERED: cloNIDine HCL 0.1 MG TAB ONE (23:34)
[2017-09-12 02:47] LABS: Basophils # (auto) 0 uL; Basophils % (auto) 0.5 % (0.0-2.0); Eosinophils # (auto) 0.1 uL; Hemoglobin 12.2 g/dL (13.5-17.5); Lymphocytes # (auto) 0.8 uL; Nucleated Red Blood Cells % 0.1 %
[2017-09-12 02:49] LABS: Eosinophils % (auto) 2.4 % (0.0-7.0); Hematocrit 37.5 % (41.0-53.0); Lymphocytes % (auto) 15.8 % (10.0-50.0); Mean Corpuscular Hemoglobin 29.5 pg (28.0-32.0); Mean Corpuscular Hgb Conc. 32.7 g/dL (32.0-36.0); Mean Corpuscular Volume 90.4 fL (80.0-100.0); Mean Platelet Volume 7.6 fL (6.9-10.8); Monocytes # (auto) 0.5 uL; Monocytes % (auto) 8.9 % (0.0-12.0); Neutrophils # (auto) 3.9 uL; Neutrophils % (auto) 72.4 % (37.0-80.0); Platelet Count (auto) 62 10^3/uL (140-450); Red Cell Distribution Width 17.7 % (11.8-14.3); White Blood Cell 5.4 10^3/uL (4.4-10.8)
[2017-09-12] MEDS ORDERED: cloNIDine HCL 0.1 MG TAB PO ONE ×2 (03:00→07:45)
[2017-09-12 03:17] LABS: Albumin 3.9 g/dL (3.4-5.0); Bilirubin, Total 0.7 mg/dL (0.2-1.0); Calcium 6.7 mg/dL (8.5-10.1); Magnesium 2.7 mg/dL (1.6-2.6); Total Protein 8.5 g/dL (6.4-8.2)
[2017-09-12 03:25] LABS: Potassium 5.7 mmol/L (3.5-5.1)
[2017-09-12 03:50] LABS: B-Type Natriuretic Peptide 3962.78 pg/mL (0-100)
[2017-09-12 04:06] LABS: Temperature: 22.2 C (20.0-25.0)
[2017-09-12 07:31] VITALS: BP 191/88
== END 2017-09-12 11:23 | disposition left against medical advice (07) ==
LOC: ER 23:31
DX: I13.2 Hypertensive heart and chronic kidney disease with heart failure and with stage 5 chronic kidney disease, or end stage renal disease (principal); E11.22 Type 2 diabetes mellitus with diabetic chronic kidney disease; N18.6 End stage renal disease; I50.9 Heart failure, unspecified; J44.9 Chronic obstructive pulmonary disease, unspecified; F17.210 Nicotine dependence, cigarettes, uncomplicated; F12.10 Cannabis abuse, uncomplicated; Z79.4 Long term (current) use of insulin; Z88.1 Allergy status to other antibiotic agents; R79.89 Other specified abnormal findings of blood chemistry; Z99.2 Dependence on renal dialysis; Z53.29 Procedure and treatment not carried out because of patient's decision for other reasons
CPT/HCPCS: 36415; 71010; 73030; 80053; 83735; 83880; 84484; 85025; 93005

== ENCOUNTER 2017-09-14 14:00 | Observation (INO) | payer MEDICAID ==
[~2017-09-14] VITALS: Ht 162.6 cm; Wt 90.7 kg
[2017-09-14 14:17] VITALS: BP 202/105
== END 2017-09-14 14:47 | disposition left against medical advice (07) | DRG 144 ==
LOC: ER 14:00 → OVERFLOW 14:43 → ER 14:47
PROVIDERS: ADMIT Family Medicine; ATTEND Family Medicine
DX: R06.02 Shortness of breath (principal)
CPT/HCPCS: 99281; G0378

== ENCOUNTER 2017-09-18 16:12 | Emergency (ER) | payer MEDICAID ==
[~2017-09-18] VITALS: Ht 162.6 cm; Wt 81.6 kg
[2017-09-18] MEDS ORDERED: cloNIDine HCL 0.1 MG TAB ONE (16:29)
[2017-09-18] MEDS ORDERED: cloNIDine HCL 0.1 MG TAB PO ONE (16:45)
[2017-09-18 17:29] LABS: Basophils # (auto) 0 uL; Basophils % (auto) 0.7 % (0.0-2.0); Eosinophils # (auto) 0.2 uL; Eosinophils % (auto) 2.7 % (0.0-7.0); Lymphocytes # (auto) 0.7 uL; Lymphocytes % (auto) 12.4 % (10.0-50.0); Mean Corpuscular Hemoglobin 29.4 pg (28.0-32.0); Mean Corpuscular Hgb Conc. 32.4 g/dL (32.0-36.0); Mean Corpuscular Volume 90.7 fL (80.0-100.0); Monocytes # (auto) 0.5 uL; Monocytes % (auto) 8.2 % (0.0-12.0); Neutrophils # (auto) 4.4 uL; Platelet Count (auto) 90 10^3/uL (140-450); Red Blood Cells 4.08 10^6/uL (4.5-5.90); Red Cell Distribution Width 16.6 % (11.8-14.3); White Blood Cell 5.8 10^3/uL (4.4-10.8)
[2017-09-18 17:48] LABS: Albumin 3.6 g/dL (3.4-5.0); Calcium 6.4 mg/dL (8.5-10.1)
[2017-09-18 17:51] LABS: Bilirubin, Total 0.6 mg/dL (0.2-1.0); Total Protein 8.4 g/dL (6.4-8.2)
[2017-09-18 18:00] LABS: Potassium 5.9 mmol/L (3.5-5.1)
[2017-09-18 18:09] VITALS: BP 177/80
== END 2017-09-18 23:35 | disposition left against medical advice (07) ==
LOC: ER 16:14
DX: L03.116 Cellulitis of left lower limb (principal); Z53.21 Procedure and treatment not carried out due to patient leaving prior to being seen by health care provider
CPT/HCPCS: 36415; 80053; 85025

== ENCOUNTER 2017-11-16 15:59 | Inpatient (IN) | payer MEDICAID ==
[~2017-11-16] VITALS: Ht 165.1 cm; Wt 81.6 kg
[2017-11-16] MEDS ORDERED: SODIUM CHLORIDE 0.9% 500 ML IVB ONE (16:34)
[2017-11-16] MEDS ORDERED: ASPirin-EC 81 mg tab PO ONE (16:45)
[2017-11-16] MEDS ORDERED: MORPHINE SULFATE 4 MG/ML SYR/VIAL IV ONE (16:45)
[2017-11-16] MEDS ORDERED: ONDANSETRON HCL 4 MG/2 ML VIAL IV ONE (16:45)
[2017-11-16] MEDS ORDERED: HYDROcodone-ACET 10/325MG TAB PO ONE (17:00)
[2017-11-16] MEDS ORDERED: cloNIDine HCL 0.1 MG TAB PO ONE (18:45)
[2017-11-16 18:54] LABS: Basophils # (auto) 0 uL; Eosinophils # (auto) 0.1 uL; Hemoglobin 9.9 g/dL (13.5-17.5); Lymphocytes # (auto) 0.5 uL; Monocytes # (auto) 0.3 uL
[2017-11-16 18:56] LABS: Basophils % (auto) 0.8 % (0.0-2.0); Eosinophils % (auto) 4.2 % (0.0-7.0); Hematocrit 30.3 % (41.0-53.0); Lymphocytes % (auto) 17.5 % (10.0-50.0); Mean Corpuscular Hemoglobin 29.5 pg (28.0-32.0); Mean Corpuscular Hgb Conc. 32.6 g/dL (32.0-36.0); Mean Corpuscular Volume 90.6 fL (80.0-100.0); Monocytes % (auto) 10.3 % (0.0-12.0); Neutrophils % (auto) 67.2 % (37.0-80.0); Nucleated Red Blood Cells % 0.3 %; Platelet Count (auto) 55 10^3/uL (140-450); Red Blood Cells 3.35 10^6/uL (4.5-5.90); Red Cell Distribution Width 16.3 % (11.8-14.3)
[2017-11-16 19:08] LABS: INR 1.07 (0.9-1.15); Partial Thromboplastin Time 30.4 sec (22.64-33.71); Prothrombin Time 11.7 sec (9.37-12.3)
[2017-11-16 19:18] LABS: Albumin 3.5 g/dL (3.4-5.0); BUN/Creatinine Ratio 5.1; Bilirubin, Total 0.6 mg/dL (0.2-1.0); Calcium 6.1 mg/dL (8.5-10.1); Magnesium 2.6 mg/dL (1.6-2.6); Potassium 4.5 mmol/L (3.5-5.1); Total Protein 7.9 g/dL (6.4-8.2)
[2017-11-17] MEDS ORDERED: NITROGLYCERIN 0.4 MG SL TAB SL PRN (03:30)
[2017-11-17] MEDS ORDERED: MORPHINE SULFATE 4 MG/ML SYR/VIAL IV PRN (03:30)
[2017-11-17] MEDS ORDERED: ACETAMINOPHEN 500 MG TAB PO PRN (03:30)
[2017-11-17] MEDS ORDERED: ONDANSETRON HCL 4 MG/2 ML VIAL IV PRN (03:30)
[2017-11-17] MEDS ORDERED: TEMAZEPAM 15 MG CAP PO PRN (03:30)
[2017-11-17] MEDS ORDERED: DEXTROSE (50%) 50ML SYRG IV PRN (06:00)
[2017-11-17] MEDS ORDERED: cloNIDine HCL 0.1 MG TAB PO ONE (06:15)
[2017-11-17 06:48] LABS: Basophils # (auto) 0 uL; Eosinophils # (auto) 0.2 uL; Monocytes # (auto) 0.3 uL; Neutrophils # (auto) 1.8 uL; Nucleated Red Blood Cells % 0.2 %; White Blood Cell 3.2 10^3/uL (4.4-10.8)
[2017-11-17 06:50] LABS: Basophils % (auto) 0.9 % (0.0-2.0); Eosinophils % (auto) 4.9 % (0.0-7.0); Hematocrit 30.5 % (41.0-53.0); Hemoglobin 9.9 g/dL (13.5-17.5); Lymphocytes # (auto) 0.9 uL; Lymphocytes % (auto) 27.9 % (10.0-50.0); Mean Corpuscular Hemoglobin 29.3 pg (28.0-32.0); Mean Corpuscular Hgb Conc. 32.4 g/dL (32.0-36.0); Mean Corpuscular Volume 90.4 fL (80.0-100.0); Monocytes % (auto) 10.4 % (0.0-12.0); Neutrophils % (auto) 55.9 % (37.0-80.0); Platelet Count (auto) 56 10^3/uL (140-450); Red Blood Cells 3.37 10^6/uL (4.5-5.90)
[2017-11-17] MEDS: InsuLIN REG 1unit/0.01ml Soln (100units/ml) SC SCH ×2 (07:00→12:17)
[2017-11-17 07:08] LABS: Albumin 3.2 g/dL (3.4-5.0); BUN/Creatinine Ratio 5.8; Bilirubin, Total 0.6 mg/dL (0.2-1.0); Calcium 6.1 mg/dL (8.5-10.1); Potassium 5.3 mmol/L (3.5-5.1); Total Protein 7.1 g/dL (6.4-8.2)
[2017-11-17] MEDS: ACCU-CHEK COMFORT CURVE STRIP VI SCH ×2 (07:28→12:18)
[2017-11-17] MEDS: HYDROcodone-ACET 5/325MG TAB PO PRN ×2 (09:34→15:22)
[2017-11-17] MEDS ORDERED: hydrALAZINE HCL 25 MG TAB PO SCH (10:00)
[2017-11-17] MEDS ORDERED: ENALAPRIL MALEATE 10 MG TAB PO SCH (10:00)
[2017-11-17 14:20] VITALS: BP 181/81
[2017-11-18] MEDS ORDERED: cloNIDine HCL 0.1 MG TAB PO SCH (10:00)
[2017-12-23] MEDS ORDERED: AML5T PO (04:55)
[2017-12-23] MEDS ORDERED: ALBUAER3 IN (04:55)
[2017-12-23] MEDS ORDERED: FURO40TA PO (04:55)
[2017-12-23] MEDS ORDERED: ENA10T PO (04:55)
[2017-12-23] MEDS ORDERED: INSLANTI SC (04:55)
[2017-12-23] MEDS ORDERED: CEPH-37 PO (04:55)
[2017-12-23] MEDS ORDERED: TRAM50TA2 PO (04:55)
[2017-12-23] MEDS ORDERED: HYDR50TA15 PO (04:55)
== END 2017-11-17 15:36 | disposition left against medical advice (07) | DRG 194 ==
LOC: ER 15:59 → TELE 16:00 → TELE-EAST 11-17 14:14
PROVIDERS: ADMIT Nurse Practitioner Family; ATTEND Nurse Practitioner Family
DX: I13.2 Hypertensive heart and chronic kidney disease with heart failure and with stage 5 chronic kidney disease, or end stage renal disease (principal); D61.818 Other pancytopenia; J80 Acute respiratory distress syndrome; N18.6 End stage renal disease; E11.22 Type 2 diabetes mellitus with diabetic chronic kidney disease; I25.10 Atherosclerotic heart disease of native coronary artery without angina pectoris; D63.8 Anemia in other chronic diseases classified elsewhere; F14.90 Cocaine use, unspecified, uncomplicated; F17.210 Nicotine dependence, cigarettes, uncomplicated; I50.30 Unspecified diastolic (congestive) heart failure; Z53.21 Procedure and treatment not carried out due to patient leaving prior to being seen by health care provider; J44.9 Chronic obstructive pulmonary disease, unspecified; Z79.4 Long term (current) use of insulin; Z79.899 Other long term (current) drug therapy; Z88.1 Allergy status to other antibiotic agents; Z82.3 Family history of stroke; Z82.49 Family history of ischemic heart disease and other diseases of the circulatory system; Z99.2 Dependence on renal dialysis; Z83.3 Family history of diabetes mellitus; E83.51 Hypocalcemia
CPT/HCPCS: 36415; 71010; 80053; 82962; 83735; 84484; 85025; 85610; 85730; 93005

== ENCOUNTER 2017-11-27 18:51 | Inpatient (IN) | payer MEDICAID ==
[~2017-11-27] VITALS: Ht 162.6 cm; Wt 71.1 kg
[2017-11-27 20:06] LABS: Basophils # (auto) 0 uL; Basophils % (auto) 0.7 % (0.0-2.0); Eosinophils # (auto) 0.1 uL; Eosinophils % (auto) 1.8 % (0.0-7.0); Hematocrit 36.7 % (41.0-53.0); Hemoglobin 11.7 g/dL (13.5-17.5); Lymphocytes # (auto) 0.6 uL; Lymphocytes % (auto) 19.7 % (10.0-50.0); Mean Corpuscular Hemoglobin 28.7 pg (28.0-32.0); Mean Corpuscular Volume 89.9 fL (80.0-100.0); Monocytes # (auto) 0.3 uL; Monocytes % (auto) 8.7 % (0.0-12.0); Neutrophils # (auto) 2.2 uL; Neutrophils % (auto) 69.1 % (37.0-80.0); Nucleated Red Blood Cells % 0.2 %; Platelet Count (auto) 81 10^3/uL (140-450); Red Blood Cells 4.08 10^6/uL (4.5-5.90); Red Cell Distribution Width 15.9 % (11.8-14.3); White Blood Cell 3.1 10^3/uL (4.4-10.8)
[2017-11-27 20:11] LABS: Albumin 4.1 g/dL (3.4-5.0); Calcium 7.9 mg/dL (8.5-10.1)
[2017-11-27 20:12] LABS: BUN/Creatinine Ratio 7.2
[2017-11-27 20:15] LABS: Bilirubin, Total 0.6 mg/dL (0.2-1.0); Total Protein 9.5 g/dL (6.4-8.2)
[2017-11-27 20:22] LABS: Potassium 5.7 mmol/L (3.5-5.1)
[2017-11-28] MEDS ORDERED: SODIUM POLYSTYRENE SULF 15GM/60ML SUSP PO ONE (04:30)
[2017-11-28] MEDS ORDERED: ASPirin 81 mg TAB PO ONE (04:30)
[2017-11-28] MEDS ORDERED: ONDANSETRON HCL 4 MG/2 ML VIAL IV PRN (07:00)
[2017-11-28] MEDS ORDERED: cloNIDine HCL 0.1 MG TAB PO PRN (07:00)
[2017-11-28] MEDS: InsuLIN REG 1unit/0.01ml Soln (100units/ml) SC SCH ×4 (07:00→21:48)
[2017-11-28] MEDS ORDERED: DOXYCYCLINE HYC 100MG/250ML 250 ML IV SCH (07:00)
[2017-11-28] MEDS ORDERED: DEXTROSE (50%) 50ML SYRG IV PRN ×2 (07:00)
[2017-11-28] MEDS: ACCU-CHEK COMFORT CURVE STRIP VI SCH ×4 (08:03→21:51)
[2017-11-28] MEDS ORDERED: ENALAPRIL MALEATE 10 MG TAB PO SCH (10:00)
[2017-11-28 10:15] LABS: Basophils # (auto) 0 uL; Eosinophils # (auto) 0.1 uL; Eosinophils % (auto) 4.2 % (0.0-7.0); Hematocrit 30.2 % (41.0-53.0); Hemoglobin 9.9 g/dL (13.5-17.5); Lymphocytes # (auto) 0.7 uL; Lymphocytes % (auto) 21.2 % (10.0-50.0); Mean Corpuscular Hemoglobin 28.9 pg (28.0-32.0); Mean Corpuscular Hgb Conc. 32.7 g/dL (32.0-36.0); Mean Corpuscular Volume 88.6 fL (80.0-100.0); Monocytes # (auto) 0.3 uL; Monocytes % (auto) 10.2 % (0.0-12.0); Neutrophils % (auto) 63.4 % (37.0-80.0); Nucleated Red Blood Cells % 0.3 %; Platelet Count (auto) 105 10^3/uL (140-450); Red Blood Cells 3.41 10^6/uL (4.5-5.90); Red Cell Distribution Width 15.4 % (11.8-14.3); White Blood Cell 3.1 10^3/uL (4.4-10.8)
[2017-11-28] MEDS: hydrALAZINE HCL 25 MG TAB PO SCH ×2 (10:27→21:49)
[2017-11-28 10:31] LABS: Albumin 3.4 g/dL (3.4-5.0); BUN/Creatinine Ratio 7.2; Calcium 7.4 mg/dL (8.5-10.1)
[2017-11-28 10:39] LABS: Bilirubin, Total 0.5 mg/dL (0.2-1.0)
[2017-11-28 10:48] LABS: Potassium 5.7 mmol/L (3.5-5.1)
[2017-11-28 12:51] LABS: INR 1.07 (0.9-1.15); Prothrombin Time 11.7 sec (9.37-12.3)
[2017-11-28] MEDS: ALBUTEROL SULF 2.5 MG/0.5ML(0.5%) NEB SOLN NEB SCH ×2 (13:10→16:35)
[2017-11-28] MEDS: IPRATROPIUM BROM 0.5 MG/2.5ML INH SOL NEB SCH ×2 (13:10→16:35)
[2017-11-28 13:48] VITALS: BP 172/77
[2017-11-28 14:02] VITALS: BP 171/79
[2017-11-28] MEDS: DOXYCYCLINE HYC 100MG/250ML 250 ML IV SCH (15:00)
[2017-11-28 16:48] VITALS: BP 152/81
[2017-11-28 18:38] LABS: BUN/Creatinine Ratio 6.4; Calcium 6.9 mg/dL (8.5-10.1); Potassium 5.2 mmol/L (3.5-5.1)
[2017-11-28] MEDS: HYDROcodone-ACET 5/325MG TAB PO PRN (19:57)
[2017-11-28 21:38] VITALS: BP 151/73
[2017-11-28] MEDS ORDERED: INSULIN DETEMIR(LEVEMIR) 1unit/0.01ml Soln (100units/ml) SC SCH (22:00)
[2017-11-29] MEDS: IPRATROPIUM BROM 0.5 MG/2.5ML INH SOL NEB SCH ×3 (00:52→11:40)
[2017-11-29] MEDS: ALBUTEROL SULF 2.5 MG/0.5ML(0.5%) NEB SOLN NEB SCH ×3 (00:53→11:40)
[2017-11-29] MEDS: DOXYCYCLINE HYC 100MG/250ML 250 ML IV SCH (02:16)
[2017-11-29 05:44] VITALS: BP 149/70
[2017-11-29] MEDS: InsuLIN REG 1unit/0.01ml Soln (100units/ml) SC SCH ×2 (06:02→11:30)
[2017-11-29] MEDS: ACCU-CHEK COMFORT CURVE STRIP VI SCH ×2 (06:03→11:30)
[2017-11-29 07:37] VITALS: BP 162/71
[2017-11-29 07:46] LABS: BUN/Creatinine Ratio 6.8; Calcium 6.8 mg/dL (8.5-10.1); Magnesium 2.8 mg/dL (1.6-2.6); Potassium 5.1 mmol/L (3.5-5.1)
[2017-11-29] MEDS ORDERED: FUROSEMIDE 40 MG/4 ML VIAL IV SCH (10:00)
[2017-11-29] MEDS: hydrALAZINE HCL 25 MG TAB PO SCH (11:01)
[2017-11-29] MEDS ORDERED: DOXY1CAP82 PO (11:42)
[2017-11-29] MEDS ORDERED: FURO40TA PO (11:42)
[2017-11-29] MEDS ORDERED: ALBUAER3 IN (11:42)
[2017-11-29 12:10] VITALS: BP 163/77
[2017-11-29] MEDS: HYDROcodone-ACET 5/325MG TAB PO PRN (14:04)
[2017-12-23] MEDS ORDERED: FURO40TA PO (04:55)
[2017-12-23] MEDS ORDERED: INSLANTI SC (04:55)
[2017-12-23] MEDS ORDERED: HYDR50TA15 PO (04:55)
[2017-12-23] MEDS ORDERED: ENA10T PO (04:55)
[2017-12-23] MEDS ORDERED: ALBUAER3 IN (04:55)
[2017-12-23] MEDS ORDERED: AML5T PO (04:55)
[2017-12-23] MEDS ORDERED: TRAM50TA2 PO (04:55)
[2017-12-23] MEDS ORDERED: CEPH-37 PO (04:55)
== END 2017-11-29 14:30 | disposition home or self-care (01) | DRG 139 ==
LOC: EDBD 18:51 → ER 18:54 → TELE 18:55 → TELE-CENTR 11-28 10:46
PROVIDERS: ADMIT Nurse Practitioner Family; ATTEND Internal Medicine
PROC: 5A1D70Z Performance of Urinary Filtration, Intermittent, Less than 6 Hours Per Day (ICD-10-PCS; principal; 2017-11-28)
DX: J18.9 Pneumonia, unspecified organism (principal); I50.43 Acute on chronic combined systolic (congestive) and diastolic (congestive) heart failure; N18.6 End stage renal disease; D69.6 Thrombocytopenia, unspecified; E11.22 Type 2 diabetes mellitus with diabetic chronic kidney disease; J44.0 Chronic obstructive pulmonary disease with (acute) lower respiratory infection; I13.2 Hypertensive heart and chronic kidney disease with heart failure and with stage 5 chronic kidney disease, or end stage renal disease; E87.5 Hyperkalemia; R55 Syncope and collapse; F17.210 Nicotine dependence, cigarettes, uncomplicated; D63.1 Anemia in chronic kidney disease; Z79.4 Long term (current) use of insulin; Z79.899 Other long term (current) drug therapy; Z88.1 Allergy status to other antibiotic agents; Z82.3 Family history of stroke; Z82.49 Family history of ischemic heart disease and other diseases of the circulatory system; Z91.15 Patient's noncompliance with renal dialysis; Z83.3 Family history of diabetes mellitus; Z91.19 Patient's noncompliance with other medical treatment and regimen; Z99.2 Dependence on renal dialysis; Z71.89 Other specified counseling
CPT/HCPCS: 36415; 71045; 80048; 80053; 82962; 83036; 83735; 83880; 84443; 84484; 85025; 85379; 85610; 85730; 87081; 87205; 90935; 93005; 94640; J1642; J1815; J3490

== ENCOUNTER 2017-12-18 20:11 | Inpatient (IN) | payer MEDICAID ==
[~2017-12-18] VITALS: Ht 162.6 cm; Wt 73.3 kg
[~2017-12-18 20:11] MED LIST changes: +ALBUAER3 IN; +DOXY1CAP82 PO; -FUR40T PO; +FURO40TA PO
[2017-12-18 21:44] LABS: Basophils # (auto) 0 uL; Basophils % (auto) 0.8 % (0.0-2.0); Eosinophils # (auto) 0.1 uL; Eosinophils % (auto) 3.2 % (0.0-7.0); Hematocrit 26.8 % (41.0-53.0); Hemoglobin 8.5 g/dL (13.5-17.5); Lymphocytes # (auto) 0.7 uL; Mean Corpuscular Hemoglobin 29.1 pg (28.0-32.0); Mean Corpuscular Hgb Conc. 31.6 g/dL (32.0-36.0); Mean Corpuscular Volume 91.9 fL (80.0-100.0); Monocytes # (auto) 0.3 uL; Monocytes % (auto) 7.9 % (0.0-12.0); Neutrophils # (auto) 2.3 uL; Neutrophils % (auto) 68.1 % (37.0-80.0); Nucleated Red Blood Cells % 0.1 %; Platelet Count (auto) 78 10^3/uL (140-450); Red Blood Cells 2.91 10^6/uL (4.5-5.90); Red Cell Distribution Width 17.1 % (11.8-14.3); White Blood Cell 3.4 10^3/uL (4.4-10.8)
[2017-12-18 22:01] LABS: Albumin 3.7 g/dL (3.4-5.0); BUN/Creatinine Ratio 5.8; Bilirubin, Total 0.5 mg/dL (0.2-1.0); Calcium 7.4 mg/dL (8.5-10.1); Magnesium 2.7 mg/dL (1.6-2.6); Total Protein 8.5 g/dL (6.4-8.2)
[2017-12-18 22:16] LABS: Potassium 5.8 mmol/L (3.5-5.1)
[2017-12-18] MEDS ORDERED: SODIUM POLYSTYRENE SULF 15GM/60ML SUSP PO ONE (22:30)
[2017-12-19] VITALS (8 sets, daily range): BP systolic 126–168; BP diastolic 66–82
[2017-12-19] MEDS ORDERED: NITROGLYCERIN 0.4 MG SL TAB SL PRN (02:45)
[2017-12-19] MEDS ORDERED: MORPHINE SULF INJ 2 MG/ML SYRINGE 1ML IV PRN (02:45)
[2017-12-19] MEDS ORDERED: AZITHROMYCIN 250 MG TAB PO ONE (04:15)
[2017-12-19] MEDS ORDERED: ONDANSETRON HCL 4 MG/2 ML VIAL IV PRN (04:15)
[2017-12-19] MEDS ORDERED: DEXTROSE (50%) 50ML SYRG IV PRN (04:15)
[2017-12-19] MEDS ORDERED: HYDROcodone-ACET 5/325MG TAB PO PRN (04:15)
[2017-12-19] MEDS ORDERED: ACETAMINOPHEN 500 MG TAB PO PRN (04:15)
[2017-12-19 06:00] LABS: Basophils # (auto) 0 uL; Monocytes # (auto) 0.4 uL; White Blood Cell 3.4 10^3/uL (4.4-10.8)
[2017-12-19 06:04] LABS: Eosinophils # (auto) 0.1 uL; Eosinophils % (auto) 4.3 % (0.0-7.0); Hematocrit 23.8 % (41.0-53.0); Hemoglobin 7.8 g/dL (13.5-17.5); Lymphocytes % (auto) 29.2 % (10.0-50.0); Mean Corpuscular Hemoglobin 29.8 pg (28.0-32.0); Mean Corpuscular Hgb Conc. 32.7 g/dL (32.0-36.0); Mean Corpuscular Volume 91.1 fL (80.0-100.0); Monocytes % (auto) 10.8 % (0.0-12.0); Neutrophils # (auto) 1.9 uL; Neutrophils % (auto) 54.7 % (37.0-80.0); Nucleated Red Blood Cells % 0.1 %; Platelet Count (auto) 71 10^3/uL (140-450); Red Blood Cells 2.61 10^6/uL (4.5-5.90); Red Cell Distribution Width 17.3 % (11.8-14.3)
[2017-12-19 06:19] LABS: Albumin 3.3 g/dL (3.4-5.0); BUN/Creatinine Ratio 5.9; Bilirubin, Total 0.6 mg/dL (0.2-1.0); Calcium 7.2 mg/dL (8.5-10.1); Potassium 5.5 mmol/L (3.5-5.1); Total Protein 7.8 g/dL (6.4-8.2)
[2017-12-19] MEDS: InsuLIN REG 1unit/0.01ml Soln (100units/ml) SC SCH ×3 (06:28→17:00)
[2017-12-19] MEDS: ACCU-CHEK COMFORT CURVE STRIP VI SCH ×4 (06:29→21:14)
[2017-12-19] MEDS: ALBUTEROL SULF 2.5 MG/0.5ML(0.5%) NEB SOLN NEB SCH ×3 (08:46→18:00)
[2017-12-19] MEDS: IPRATROPIUM BROM 0.5 MG/2.5ML INH SOL NEB SCH ×3 (08:48→18:00)
[2017-12-19] MEDS: hydrALAZINE HCL 25 MG TAB PO SCH ×2 (09:30→21:13)
[2017-12-19] MEDS ORDERED: EPOETIN ALFA 10,000 UNIT/1 ML VIAL IV ONE (09:45)
[2017-12-19] MEDS ORDERED: InsuLIN REG 1unit/0.01ml Soln (100units/ml) SC SCH (22:00)
[2017-12-20] MEDS: ALBUTEROL SULF 2.5 MG/0.5ML(0.5%) NEB SOLN NEB SCH ×2 (00:25→07:28)
[2017-12-20] MEDS: IPRATROPIUM BROM 0.5 MG/2.5ML INH SOL NEB SCH ×2 (00:25→07:28)
[2017-12-20 06:00] VITALS: BP 163/83
[2017-12-20] MEDS: InsuLIN REG 1unit/0.01ml Soln (100units/ml) SC SCH (06:03)
[2017-12-20] MEDS: ACCU-CHEK COMFORT CURVE STRIP VI SCH (06:03)
[2017-12-20 08:00] VITALS: BP 148/66
[2017-12-20 09:00] VITALS: BP 148/66
[2017-12-20] MEDS ORDERED: AZITHROMYCIN 250 MG TAB PO SCH (10:00)
[2017-12-20] MEDS: hydrALAZINE HCL 25 MG TAB PO SCH (10:06)
[2017-12-21] MEDS ORDERED: SODIUM POLYSTYRENE SULF 15GM/60ML SUSP PO SCH (10:00)
[2017-12-23] MEDS ORDERED: CEPH-37 PO (04:55)
[2017-12-23] MEDS ORDERED: AML5T PO (04:55)
[2017-12-23] MEDS ORDERED: INSLANTI SC (04:55)
[2017-12-23] MEDS ORDERED: TRAM50TA2 PO (04:55)
[2017-12-23] MEDS ORDERED: HYDR50TA15 PO (04:55)
[2017-12-23] MEDS ORDERED: FURO40TA PO (04:55)
[2017-12-23] MEDS ORDERED: ALBUAER3 IN (04:55)
[2017-12-23] MEDS ORDERED: ENA10T PO (04:55)
== END 2017-12-20 10:50 | disposition left against medical advice (07) | DRG 139 ==
LOC: EDBD 20:11 → ER 20:22 → EDUNIT# 20:23 → TELE 20:23 → TELE-CENTR 12-19 05:20
PROVIDERS: ADMIT Nurse Practitioner Family; ATTEND Internal Medicine
PROC: 5A1D70Z Performance of Urinary Filtration, Intermittent, Less than 6 Hours Per Day (ICD-10-PCS; principal; 2017-12-19)
DX: J18.9 Pneumonia, unspecified organism (principal); I13.2 Hypertensive heart and chronic kidney disease with heart failure and with stage 5 chronic kidney disease, or end stage renal disease; N18.6 End stage renal disease; E11.22 Type 2 diabetes mellitus with diabetic chronic kidney disease; J44.0 Chronic obstructive pulmonary disease with (acute) lower respiratory infection; E87.5 Hyperkalemia; D64.9 Anemia, unspecified; F17.210 Nicotine dependence, cigarettes, uncomplicated; I50.22 Chronic systolic (congestive) heart failure; K70.30 Alcoholic cirrhosis of liver without ascites; Z53.21 Procedure and treatment not carried out due to patient leaving prior to being seen by health care provider; R74.8 Abnormal levels of other serum enzymes; Z88.1 Allergy status to other antibiotic agents; Z82.49 Family history of ischemic heart disease and other diseases of the circulatory system; Z83.3 Family history of diabetes mellitus; Z91.15 Patient's noncompliance with renal dialysis; Z91.19 Patient's noncompliance with other medical treatment and regimen; Z99.2 Dependence on renal dialysis; Z79.899 Other long term (current) drug therapy; Z71.89 Other specified counseling
CPT/HCPCS: 36415; 71045; 80053; 82962; 83735; 83880; 84132; 84484; 85025; 85379; 87081; 90935; 93971; 94640; J0885; J1642; J1815

== ENCOUNTER 2017-12-20 19:04 | Emergency (ER) | payer MEDICAID ==
[~2017-12-20] VITALS: Ht 162.6 cm; Wt 70.3 kg
[2017-12-20 19:32] VITALS: BP 172/70
[2017-12-20] MEDS ORDERED: cloNIDine HCL 0.1 MG TAB PO ONE (19:45)
== END 2017-12-20 21:26 | disposition home or self-care (01) ==
LOC: ER 19:04
DX: E87.5 Hyperkalemia (principal); N18.6 End stage renal disease; J44.9 Chronic obstructive pulmonary disease, unspecified; I12.0 Hypertensive chronic kidney disease with stage 5 chronic kidney disease or end stage renal disease; F17.210 Nicotine dependence, cigarettes, uncomplicated; Z76.0 Encounter for issue of repeat prescription; Z99.2 Dependence on renal dialysis; Z88.1 Allergy status to other antibiotic agents

== ENCOUNTER 2017-12-22 18:55 | Inpatient (IN) | payer MEDICAID ==
[~2017-12-22] VITALS: Ht 165.1 cm; Wt 74.5 kg
[2017-12-22 23:11] LABS: Basophils # (auto) 0 uL; Eosinophils # (auto) 0.2 uL; Hemoglobin 7.5 g/dL (13.5-17.5); Lymphocytes # (auto) 0.8 uL; Mean Corpuscular Hgb Conc. 32.4 g/dL (32.0-36.0); Monocytes # (auto) 0.4 uL; Monocytes % (auto) 10.6 % (0.0-12.0); Neutrophils # (auto) 2.6 uL; Nucleated Red Blood Cells % 0.1 %; Red Blood Cells 2.54 10^6/uL (4.5-5.90)
[2017-12-22 23:12] LABS: Basophils % (auto) 0.7 % (0.0-2.0); Eosinophils % (auto) 3.8 % (0.0-7.0); Lymphocytes % (auto) 20.1 % (10.0-50.0); Mean Corpuscular Hemoglobin 29.3 pg (28.0-32.0); Mean Corpuscular Volume 90.4 fL (80.0-100.0); Neutrophils % (auto) 64.8 % (37.0-80.0); Platelet Count (auto) 64 10^3/uL (140-450); Red Cell Distribution Width 17.4 % (11.8-14.3)
[2017-12-22 23:31] LABS: Albumin 3.3 g/dL (3.4-5.0); BUN/Creatinine Ratio 6.2; Magnesium 2.5 mg/dL (1.6-2.6); Potassium 4.5 mmol/L (3.5-5.1)
[2017-12-22 23:35] LABS: Bilirubin, Total 0.5 mg/dL (0.2-1.0); Total Protein 7.7 g/dL (6.4-8.2)
[2017-12-23] VITALS (11 sets, daily range): BP systolic 142–209; BP diastolic 71–85
[2017-12-23 00:01] LABS: INR 1.05 (0.9-1.15); Partial Thromboplastin Time 30.1 sec (22.64-33.71); Prothrombin Time 11.4 sec (9.37-12.3)
[2017-12-23] MEDS ORDERED: HYDROcodone-ACET 5/325MG TAB PO PRN (02:45)
[2017-12-23] MEDS ORDERED: DEXTROSE (50%) 50ML SYRG IV PRN (02:45)
[2017-12-23] MEDS ORDERED: ALBUTEROL SULF 2.5 MG/0.5ML(0.5%) NEB SOLN NEB PRN (02:45)
[2017-12-23] MEDS ORDERED: ACETAMINOPHEN 500 MG TAB PO PRN (02:45)
[2017-12-23] MEDS ORDERED: ONDANSETRON HCL 4 MG/2 ML VIAL IV PRN (02:45)
[2017-12-23] MEDS ORDERED: ENA10T PO ×2 (04:55)
[2017-12-23] MEDS ORDERED: TRAM50TA2 PO ×2 (04:55)
[2017-12-23] MEDS ORDERED: HYDR50TA15 PO ×2 (04:55)
[2017-12-23] MEDS ORDERED: AML5T PO ×2 (04:55)
[2017-12-23] MEDS ORDERED: FURO40TA PO ×2 (04:55)
[2017-12-23] MEDS ORDERED: CEPH-37 PO ×2 (04:55)
[2017-12-23] MEDS ORDERED: ALBUAER3 IN ×2 (04:55)
[2017-12-23] MEDS ORDERED: INSLANTI SC ×2 (04:55)
[2017-12-23] MEDS: InsuLIN REG 1unit/0.01ml Soln (100units/ml) SC SCH ×3 (06:05→17:00)
[2017-12-23] MEDS: cloNIDine HCL 0.1 MG TAB PO PRN ×2 (06:05→19:06)
[2017-12-23] MEDS: ACCU-CHEK COMFORT CURVE STRIP VI SCH ×3 (06:05→17:44)
[2017-12-23 09:44] LABS: Basophils # (auto) 0 uL; Eosinophils # (auto) 0.2 uL; Hemoglobin 7.9 g/dL (13.5-17.5); Lymphocytes # (auto) 0.9 uL; Mean Corpuscular Hemoglobin 28.9 pg (28.0-32.0); Mean Corpuscular Hgb Conc. 31.7 g/dL (32.0-36.0); Mean Corpuscular Volume 91.1 fL (80.0-100.0); Monocytes # (auto) 0.4 uL
[2017-12-23 09:46] LABS: Basophils % (auto) 0.9 % (0.0-2.0); Eosinophils % (auto) 5.8 % (0.0-7.0); Lymphocytes % (auto) 25.4 % (10.0-50.0); Monocytes % (auto) 11.8 % (0.0-12.0); Neutrophils # (auto) 2.1 uL; Neutrophils % (auto) 56.1 % (37.0-80.0); Nucleated Red Blood Cells % 0.1 %; Platelet Count (auto) 66 10^3/uL (140-450); Red Blood Cells 2.74 10^6/uL (4.5-5.90); Red Cell Distribution Width 17.5 % (11.8-14.3); White Blood Cell 3.7 10^3/uL (4.4-10.8)
[2017-12-23 09:54] LABS: BUN/Creatinine Ratio 6.2; Calcium 6.9 mg/dL (8.5-10.1); Potassium 5.1 mmol/L (3.5-5.1)
[2017-12-23] MEDS ORDERED: hydrALAZINE HCL 25 MG TAB PO SCH (10:00)
[2017-12-23] MEDS ORDERED: amLODIPine BESYLATE 5 MG TAB PO SCH ×2 (10:00→18:00)
[2017-12-23] MEDS ORDERED: diphenhdrAMINE HCL 50 MG/1 ML VL IM ONE (17:00)
[2017-12-23] MEDS ORDERED: EPOETIN ALFA 10,000 UNIT/1 ML VIAL IV ONE (17:00)
[2017-12-23] MEDS ORDERED: SODIUM CHL 0.9% 1000 ML BAG XX ONE (17:00)
[2017-12-23] MEDS ORDERED: diphenhdrAMINE HCL 50 MG/1 ML VL IV ONE (17:45)
[2017-12-24] MEDS ORDERED: SODIUM CHL 0.9% 1000 ML BAG XX ONE ×2 (09:45→10:00)
[2017-12-24] MEDS ORDERED: EPOETIN ALFA 10,000 UNIT/1 ML VIAL IV ONE (09:45)
== END 2017-12-23 19:25 | disposition home or self-care (01) | DRG 194 ==
LOC: ER 18:55 → TELE 18:56 → TELE-EAST 12-23 04:03
PROVIDERS: ADMIT Nurse Practitioner Family; ATTEND Internal Medicine
PROC: 5A1D70Z Performance of Urinary Filtration, Intermittent, Less than 6 Hours Per Day (ICD-10-PCS; principal; 2017-12-23)
PROC: 30233N1 Transfusion of Nonautologous Red Blood Cells into Peripheral Vein, Percutaneous Approach (ICD-10-PCS; 2017-12-23)
DX: I13.2 Hypertensive heart and chronic kidney disease with heart failure and with stage 5 chronic kidney disease, or end stage renal disease (principal); N18.6 End stage renal disease; E11.22 Type 2 diabetes mellitus with diabetic chronic kidney disease; E87.70 Fluid overload, unspecified; I50.43 Acute on chronic combined systolic (congestive) and diastolic (congestive) heart failure; D63.1 Anemia in chronic kidney disease; E78.5 Hyperlipidemia, unspecified; E83.51 Hypocalcemia; F12.90 Cannabis use, unspecified, uncomplicated; F17.210 Nicotine dependence, cigarettes, uncomplicated; J44.9 Chronic obstructive pulmonary disease, unspecified; K74.60 Unspecified cirrhosis of liver; R74.8 Abnormal levels of other serum enzymes; I50.9 Heart failure, unspecified; Z79.4 Long term (current) use of insulin; Z82.3 Family history of stroke; Z82.49 Family history of ischemic heart disease and other diseases of the circulatory system; Z83.3 Family history of diabetes mellitus; Z91.19 Patient's noncompliance with other medical treatment and regimen; Z99.2 Dependence on renal dialysis; Z79.899 Other long term (current) drug therapy; Z71.89 Other specified counseling
CPT/HCPCS: 36415; 71045; 80048; 80053; 82962; 83735; 83880; 84484; 85025; 85610; 85730; 86850; 86900; 86901; 86920; 87081; 90935; 93005; J0885; J1642

== ENCOUNTER 2017-12-26 15:21 | Inpatient (IN) | payer MEDICAID ==
[~2017-12-26] VITALS: Ht 172.7 cm; Wt 75.1 kg
[~2017-12-26 15:21] MED LIST changes: +AML5T PO; +CEPH-37 PO; -DOXY1CAP82 PO; -LISI-646 PO; -NIFE90TA30 PO; -SPIR50TA23 PO; +TRAM50TA2 PO
[2017-12-26] MEDS ORDERED: AZITHROMYCIN 500MG/ 250ML 250 ML IV ONE (17:15)
[2017-12-26] MEDS ORDERED: cefTRIAXone 1GM/10ml IVPUSH 10 ML IV ONE (17:15)
[2017-12-26 17:29] LABS: Basophils # (auto) 0 uL; Basophils % (auto) 0.8 % (0.0-2.0); Eosinophils # (auto) 0.2 uL; Eosinophils % (auto) 4.2 % (0.0-7.0); Lymphocytes # (auto) 0.7 uL; Lymphocytes % (auto) 17.1 % (10.0-50.0); Mean Corpuscular Hemoglobin 29.2 pg (28.0-32.0); Mean Corpuscular Hgb Conc. 32.2 g/dL (32.0-36.0); Mean Corpuscular Volume 90.8 fL (80.0-100.0); Monocytes # (auto) 0.4 uL; Monocytes % (auto) 9.8 % (0.0-12.0); Neutrophils # (auto) 2.7 uL; Neutrophils % (auto) 68.1 % (37.0-80.0); Nucleated Red Blood Cells % 0.1 %; Red Blood Cells 3.41 10^6/uL (4.5-5.90); Red Cell Distribution Width 17.2 % (11.8-14.3); White Blood Cell 3.9 10^3/uL (4.4-10.8)
[2017-12-26] MEDS ORDERED: NITROGLYCERIN 0.4 MG SL TAB SL PRN (17:45)
[2017-12-26] MEDS ORDERED: PIPERACILLIN-TAZOB 2.25GM 50 ML IV ONE (17:45)
[2017-12-26] MEDS ORDERED: PROMETHAZINE HCL 25 MG/ML 1ML IV PRN (17:45)
[2017-12-26] MEDS ORDERED: LORazepam 0.5 MG TAB PO PRN (17:45)
[2017-12-26] MEDS ORDERED: DEXTROSE (50%) 50ML SYRG IV PRN (17:45)
[2017-12-26] MEDS ORDERED: cloNIDine HCL 0.1 MG TAB PO PRN (17:45)
[2017-12-26] MEDS ORDERED: ACETAMINOPHEN 500 MG TAB PO PRN (17:45)
[2017-12-26] MEDS ORDERED: ALBUTEROL SULF 2.5 MG/0.5ML(0.5%) NEB SOLN NEB PRN (17:45)
[2017-12-26] MEDS ORDERED: MORPHINE SULFATE 4 MG/ML SYR/VIAL IV PRN ×2 (17:45)
[2017-12-26] MEDS ORDERED: OSELTAMIVIR 30 MG CAP PO ONE (17:45)
[2017-12-26] MEDS ORDERED: LACTULOSE 20Gm/30ML SOLN PO PRN (17:45)
[2017-12-26 17:48] LABS: Albumin 3.6 g/dL (3.4-5.0); BUN/Creatinine Ratio 6.5; Calcium 7.5 mg/dL (8.5-10.1); Potassium 5.4 mmol/L (3.5-5.1)
[2017-12-26 17:53] LABS: Bilirubin, Total 0.6 mg/dL (0.2-1.0); Total Protein 8.5 g/dL (6.4-8.2)
[2017-12-26 17:55] LABS: Platelet Count (auto) 78 10^3/uL (140-450)
[2017-12-26 18:13] LABS: Folate (Folic Acid) > 24.00 ng/mL (5.38-24)
[2017-12-26 18:17] LABS: CRP High Sensitivity 0.1 mg/dL (< 0.3)
[2017-12-26] MEDS: IPRATROPIUM BROM 0.5 MG/2.5ML INH SOL NEB SCH ×2 (18:19→23:55)
[2017-12-26] MEDS: ALBUTEROL SULF 2.5 MG/0.5ML(0.5%) NEB SOLN NEB SCH ×2 (18:19→23:55)
[2017-12-26] MEDS ORDERED: PIPERACILLIN-TAZOB 0.75 GM in D5W 5% 50 ML IV SCH (19:15)
[2017-12-26 19:38] VITALS: BP 162/69
[2017-12-26 20:10] VITALS: BP 171/79
[2017-12-26] MEDS: SODIUM CHLOR 0.9% PF (SALINE LOCK) 10ML VIAL IV SCH (21:33)
[2017-12-26] MEDS: ATORVASTATIN 20 MG TAB PO SCH (21:59)
[2017-12-26 22:00] VITALS: BP 171/79
[2017-12-26] MEDS: PIPERACILLIN-TAZOB 2.25GM 50 ML IV SCH (22:00)
[2017-12-26] MEDS: ACCU-CHEK COMFORT CURVE STRIP VI SCH (22:00)
[2017-12-26] MEDS: LINEZOLID 600MG/300ML 300 ML IV SCH (22:00)
[2017-12-26] MEDS: InsuLIN REG 1unit/0.01ml Soln (100units/ml) SC SCH (22:00)
[2017-12-26] MEDS: traMADol HCL 50 MG TAB PO SCH (22:00)
[2017-12-26] MEDS: METOPROLOL TARTRATE 25 MG TAB PO SCH (22:01)
[2017-12-26] MEDS: TEMAZEPAM 15 MG CAP PO PRN (22:02)
[2017-12-26] MEDS: HYDROcodone-ACET 5/325MG TAB PO PRN (23:24)
[2017-12-27] MEDS ORDERED: INFLUENZA QUAD 2017-2018 0.5 ML SYRG IM ONE (03:45)
[2017-12-27] MEDS ORDERED: PNEUMOCOCCAL VACC POLYS 25 MCG/0.5 ML VIAL IM ONE (03:45)
[2017-12-27 05:00] VITALS: BP 155/72
[2017-12-27 06:14] LABS: Basophils # (auto) 0 uL; Eosinophils # (auto) 0.2 uL; Eosinophils % (auto) 5.2 % (0.0-7.0); Hematocrit 29.6 % (41.0-53.0); Hemoglobin 9.7 g/dL (13.5-17.5); Lymphocytes # (auto) 0.9 uL; Lymphocytes % (auto) 19.5 % (10.0-50.0); Mean Corpuscular Hemoglobin 29.5 pg (28.0-32.0); Mean Corpuscular Hgb Conc. 32.7 g/dL (32.0-36.0); Mean Corpuscular Volume 90.3 fL (80.0-100.0); Monocytes # (auto) 0.5 uL; Neutrophils # (auto) 2.8 uL; Neutrophils % (auto) 63.3 % (37.0-80.0); Nucleated Red Blood Cells % 0.1 %; Platelet Count (auto) 73 10^3/uL (140-450); Red Blood Cells 3.28 10^6/uL (4.5-5.90); Red Cell Distribution Width 17.5 % (11.8-14.3); White Blood Cell 4.5 10^3/uL (4.4-10.8)
[2017-12-27] MEDS: SODIUM CHLOR 0.9% PF (SALINE LOCK) 10ML VIAL IV SCH ×3 (06:21→21:23)
[2017-12-27 06:30] LABS: BUN/Creatinine Ratio 7.3; Calcium 7.4 mg/dL (8.5-10.1); Potassium 5.5 mmol/L (3.5-5.1)
[2017-12-27] MEDS: ALBUTEROL SULF 2.5 MG/0.5ML(0.5%) NEB SOLN NEB SCH ×3 (06:33→18:32)
[2017-12-27] MEDS: IPRATROPIUM BROM 0.5 MG/2.5ML INH SOL NEB SCH ×3 (06:33→18:32)
[2017-12-27 06:39] LABS: Cholesterol 98 mg/dL (< 200); HDL Cholesterol 54 mg/dL (40-59); LDL Cholesterol 36 mg/dL (< 100); Triglycerides 70 mg/dL (< 150)
[2017-12-27] MEDS: InsuLIN REG 1unit/0.01ml Soln (100units/ml) SC SCH ×4 (07:00→21:26)
[2017-12-27] MEDS: ACCU-CHEK COMFORT CURVE STRIP VI SCH ×4 (07:01→21:26)
[2017-12-27] MEDS ORDERED: EPOETIN ALFA 10,000 UNIT/1 ML VIAL IV ONE (08:45)
[2017-12-27] MEDS ORDERED: SODIUM CHL 0.9% 1000 ML BAG XX ONE (08:45)
[2017-12-27 09:00] VITALS: BP 158/73
[2017-12-27] MEDS ORDERED: AZITHROMYCIN 500MG/ 250ML 250 ML IV SCH (10:00)
[2017-12-27] MEDS ORDERED: NITROGLYCERIN 0.2MG/HR TOPICAL PATCH TD SCH (10:00)
[2017-12-27] MEDS: PIPERACILLIN-TAZOB 2.25GM 50 ML IV SCH (10:00)
[2017-12-27] MEDS ORDERED: amLODIPine BESYLATE 5 MG TAB PO SCH (10:00)
[2017-12-27] MEDS ORDERED: hydrALAZINE HCL 25 MG TAB PO SCH (10:00)
[2017-12-27] MEDS ORDERED: ENOXAPARIN SOD 30 MG/0.3 ML SYRINGE SC SCH (10:00)
[2017-12-27] MEDS: LINEZOLID 600MG/300ML 300 ML IV SCH (10:00)
[2017-12-27] MEDS ORDERED: ASPirin 81 mg TAB PO SCH ×2 (10:00)
[2017-12-27] MEDS ORDERED: FUROSEMIDE 40 MG TAB PO SCH (10:00)
[2017-12-27] MEDS ORDERED: INSULIN LANTUS (GLARGINE) 1 /0.01ml (100units/ml) SC SCH (10:00)
[2017-12-27] MEDS: traMADol HCL 50 MG TAB PO SCH ×2 (10:44→21:11)
[2017-12-27] MEDS: METOPROLOL TARTRATE 25 MG TAB PO SCH ×2 (10:50→21:25)
[2017-12-27] MEDS ORDERED: OSELTAMIVIR 30 MG CAP PO PRN (12:00)
[2017-12-27 13:00] VITALS: BP 148/68
[2017-12-27 17:00] VITALS: BP 143/76
[2017-12-27] MEDS: ATORVASTATIN 20 MG TAB PO SCH (21:25)
[2017-12-27] MEDS: TEMAZEPAM 15 MG CAP PO PRN (21:27)
[2017-12-27] MEDS: HYDROcodone-ACET 5/325MG TAB PO PRN (21:27)
[2017-12-27 22:39] VITALS: BP 182/80
[2017-12-28] MEDS: IPRATROPIUM BROM 0.5 MG/2.5ML INH SOL NEB SCH ×2 (00:12→06:15)
[2017-12-28] MEDS: ALBUTEROL SULF 2.5 MG/0.5ML(0.5%) NEB SOLN NEB SCH ×2 (00:12→06:15)
[2017-12-28] MEDS ORDERED: cloNIDine HCL 0.1 MG TAB PO PRN (02:30)
[2017-12-28] MEDS ORDERED: hydrALAZINE HCL 20 MG/ML VL IV PRN (02:30)
[2017-12-28 05:24] LABS: BUN/Creatinine Ratio 7.7; Calcium 7.1 mg/dL (8.5-10.1); Phosphorus 7.1 mg/dL (2.5-4.90); Potassium 4.9 mmol/L (3.5-5.1)
[2017-12-28 05:37] VITALS: BP 159/67
[2017-12-28] MEDS: InsuLIN REG 1unit/0.01ml Soln (100units/ml) SC SCH (06:09)
[2017-12-28] MEDS: SODIUM CHLOR 0.9% PF (SALINE LOCK) 10ML VIAL IV SCH (06:10)
[2017-12-28] MEDS: ACCU-CHEK COMFORT CURVE STRIP VI SCH (06:10)
== END 2017-12-28 09:21 | disposition left against medical advice (07) | DRG 139 ==
LOC: ER 15:21 → EDBD 15:21 → TELE 15:22 → TELE-CENTR 20:10 → CENTRAL 12-27 23:50
PROVIDERS: ADMIT Internal Medicine; ATTEND Internal Medicine
PROC: 5A1D70Z Performance of Urinary Filtration, Intermittent, Less than 6 Hours Per Day (ICD-10-PCS; principal; 2017-12-27)
DX: J18.9 Pneumonia, unspecified organism (principal); I13.2 Hypertensive heart and chronic kidney disease with heart failure and with stage 5 chronic kidney disease, or end stage renal disease; I24.9 Acute ischemic heart disease, unspecified; N18.6 End stage renal disease; E11.22 Type 2 diabetes mellitus with diabetic chronic kidney disease; J44.0 Chronic obstructive pulmonary disease with (acute) lower respiratory infection; D64.9 Anemia, unspecified; I50.9 Heart failure, unspecified; E87.5 Hyperkalemia; F17.210 Nicotine dependence, cigarettes, uncomplicated; G40.909 Epilepsy, unspecified, not intractable, without status epilepticus; I35.0 Nonrheumatic aortic (valve) stenosis; Y95 Nosocomial condition; K74.60 Unspecified cirrhosis of liver; K59.00 Constipation, unspecified; Z53.21 Procedure and treatment not carried out due to patient leaving prior to being seen by health care provider; G47.00 Insomnia, unspecified; F14.10 Cocaine abuse, uncomplicated; Z82.3 Family history of stroke; Z82.49 Family history of ischemic heart disease and other diseases of the circulatory system; Z83.3 Family history of diabetes mellitus; Z91.19 Patient's noncompliance with other medical treatment and regimen; Z99.2 Dependence on renal dialysis; Z88.1 Allergy status to other antibiotic agents; Z79.899 Other long term (current) drug therapy; Z23 Encounter for immunization
CPT/HCPCS: 36415; 70450; 71045; 80048; 80053; 80061; 82550; 82607; 82746; 82962; 83036; 83605; 83880; 84100; 84443; 84484; 85025; 85652; 86141; 87040; 87081; 87804; 90935; 93005; 93971; 94640; 96365; 96367; 96368; G9035; J0885; J1815; J2543

== ENCOUNTER 2017-12-30 19:55 | Inpatient (IN) | payer MEDICAID ==
[~2017-12-30] VITALS: Ht 165.1 cm; Wt 71.2 kg
[~2017-12-30 19:55] MED LIST changes: -CEPH-37 PO
[2017-12-30 21:58] LABS: Basophils # (auto) 0 uL; Basophils % (auto) 0.8 % (0.0-2.0); Eosinophils # (auto) 0.2 uL; Hematocrit 27.4 % (41.0-53.0); Hemoglobin 8.8 g/dL (13.5-17.5); Lymphocytes # (auto) 0.7 uL; Lymphocytes % (auto) 15.5 % (10.0-50.0); Mean Corpuscular Hemoglobin 29.1 pg (28.0-32.0); Mean Corpuscular Hgb Conc. 32.1 g/dL (32.0-36.0); Mean Corpuscular Volume 90.8 fL (80.0-100.0); Monocytes # (auto) 0.4 uL; Monocytes % (auto) 8.2 % (0.0-12.0); Neutrophils # (auto) 3.2 uL; Neutrophils % (auto) 71.5 % (37.0-80.0); Nucleated Red Blood Cells % 0.1 %; Platelet Count (auto) 68 10^3/uL (140-450); Red Blood Cells 3.01 10^6/uL (4.5-5.90); Red Cell Distribution Width 17.6 % (11.8-14.3); White Blood Cell 4.5 10^3/uL (4.4-10.8)
[2017-12-30 22:18] LABS: Albumin 3.5 g/dL (3.4-5.0); BUN/Creatinine Ratio 7.8; Bilirubin, Total 0.6 mg/dL (0.2-1.0); Calcium 6.8 mg/dL (8.5-10.1); Total Protein 8.4 g/dL (6.4-8.2)
[2017-12-30 22:41] LABS: INR 1.02 (0.9-1.15); Partial Thromboplastin Time 30.6 sec (22.64-33.71); Prothrombin Time 11.1 sec (9.37-12.3)
[2017-12-31] MEDS ORDERED: DEXTROSE (50%) 50ML SYRG IV ONE (01:00)
[2017-12-31] MEDS ORDERED: InsuLIN REG 1unit/0.01ml Soln (100units/ml) IV ONE (01:00)
[2017-12-31] MEDS ORDERED: CALCIUM GLUC 4.65meq/50ml D5AE 50 ML IV ONE (01:00)
[2017-12-31] MEDS ORDERED: SODIUM BICARBONATE 8.4 % INJ 50ML VIAL IV ONE (01:00)
[2017-12-31] MEDS ORDERED: ACETAMINOPHEN 500 MG TAB PO PRN (07:00)
[2017-12-31] MEDS ORDERED: NITROGLYCERIN 0.4 MG SL TAB SL PRN (07:00)
[2017-12-31] MEDS ORDERED: MORPHINE SULFATE 4 MG/ML SYR/VIAL IV PRN (07:00)
[2017-12-31] MEDS ORDERED: DEXTROSE (50%) 50ML SYRG IV PRN (07:00)
[2017-12-31] MEDS: cloNIDine HCL 0.1 MG TAB PO PRN ×2 (08:33→17:56)
[2017-12-31] MEDS: HYDROcodone-ACET 5/325MG TAB PO PRN ×2 (08:34→21:30)
[2017-12-31 08:37] LABS: Basophils # (auto) 0 uL; Eosinophils # (auto) 0.2 uL; Eosinophils % (auto) 5.9 % (0.0-7.0); Hematocrit 27.4 % (41.0-53.0); Hemoglobin 8.9 g/dL (13.5-17.5); Lymphocytes # (auto) 0.8 uL; Lymphocytes % (auto) 24.4 % (10.0-50.0); Mean Corpuscular Hemoglobin 29.8 pg (28.0-32.0); Mean Corpuscular Hgb Conc. 32.5 g/dL (32.0-36.0); Mean Corpuscular Volume 91.5 fL (80.0-100.0); Monocytes # (auto) 0.3 uL; Neutrophils % (auto) 58.7 % (37.0-80.0); Nucleated Red Blood Cells % 0.2 %; Platelet Count (auto) 62 10^3/uL (140-450); Red Blood Cells 2.99 10^6/uL (4.5-5.90); Red Cell Distribution Width 17.1 % (11.8-14.3); White Blood Cell 3.5 10^3/uL (4.4-10.8)
[2017-12-31] MEDS: ACCU-CHEK COMFORT CURVE STRIP VI SCH ×4 (08:39→21:32)
[2017-12-31 08:52] LABS: BUN/Creatinine Ratio 8.2
[2017-12-31 09:00] LABS: Potassium 5.6 mmol/L (3.5-5.1)
[2017-12-31] MEDS ORDERED: EPOETIN ALFA 10,000 UNIT/1 ML VIAL IV ONE (09:00)
[2017-12-31] MEDS ORDERED: SODIUM CHL 0.9% 1000 ML BAG XX ONE (09:00)
[2017-12-31] MEDS: InsuLIN REG 1unit/0.01ml Soln (100units/ml) SC SCH ×4 (09:12→21:33)
[2017-12-31] MEDS ORDERED: SODIUM POLYSTYRENE SULF 15GM/60ML SUSP PO ONE (09:15)
[2017-12-31] MEDS: amLODIPine BESYLATE 5 MG TAB PO SCH (09:45)
[2017-12-31 09:53] VITALS: BP 168/88
[2017-12-31 18:00] VITALS: BP 108/89
[2017-12-31 21:35] VITALS: BP 164/84
[2018-01-01 04:39] VITALS: BP 165/79
[2018-01-01] MEDS: cloNIDine HCL 0.1 MG TAB PO PRN (05:14)
[2018-01-01] MEDS: HYDROcodone-ACET 5/325MG TAB PO PRN (05:15)
[2018-01-01] MEDS: ACCU-CHEK COMFORT CURVE STRIP VI SCH ×2 (06:37→12:00)
[2018-01-01] MEDS: InsuLIN REG 1unit/0.01ml Soln (100units/ml) SC SCH ×2 (06:37→12:00)
[2018-01-01 08:00] VITALS: BP 156/72
[2018-01-01 08:03] VITALS: BP 165/79
[2018-01-01] MEDS: amLODIPine BESYLATE 5 MG TAB PO SCH (10:05)
[2018-01-01 11:52] VITALS: BP 199/84
[2018-01-01] MEDS ORDERED: EPOETIN ALFA 10,000 UNIT/1 ML VIAL IV ONE (12:30)
[2018-01-01] MEDS ORDERED: SODIUM CHL 0.9% 1000 ML BAG XX ONE (12:30)
[2018-01-01] MEDS ORDERED: AML5T PO (14:41)
[2018-01-01] MEDS ORDERED: FURO40TA PO (14:41)
[2018-01-01] MEDS ORDERED: CLON0.2T PO (14:41)
[2018-01-01] MEDS ORDERED: HYDR50TA15 PO (14:41)
[2018-01-01 15:05] VITALS: BP 189/84
== END 2018-01-01 15:30 | disposition home or self-care (01) | DRG 133 ==
LOC: ER 19:55 → TELE 19:56 → TELE-EAST 12-31 18:42
PROVIDERS: ADMIT Nurse Practitioner Family; ATTEND Hospitalist
PROC: 5A1D70Z Performance of Urinary Filtration, Intermittent, Less than 6 Hours Per Day (ICD-10-PCS; principal; 2017-12-31)
DX: J96.21 Acute and chronic respiratory failure with hypoxia (principal); I13.2 Hypertensive heart and chronic kidney disease with heart failure and with stage 5 chronic kidney disease, or end stage renal disease; N18.6 End stage renal disease; E11.22 Type 2 diabetes mellitus with diabetic chronic kidney disease; E87.5 Hyperkalemia; J44.9 Chronic obstructive pulmonary disease, unspecified; I50.9 Heart failure, unspecified; Z99.2 Dependence on renal dialysis; N18.9 Chronic kidney disease, unspecified; D64.9 Anemia, unspecified; G40.909 Epilepsy, unspecified, not intractable, without status epilepticus; K74.60 Unspecified cirrhosis of liver; Z76.5 Malingerer [conscious simulation]; Z79.4 Long term (current) use of insulin; Z83.3 Family history of diabetes mellitus; Z82.49 Family history of ischemic heart disease and other diseases of the circulatory system; Z82.3 Family history of stroke
CPT/HCPCS: 36415; 71045; 80048; 80053; 80307; 82962; 83880; 84484; 85025; 85610; 85730; 87040; 87081; 90935; 93005; 96374; J0610; J0885; J1642

== ENCOUNTER 2018-01-04 20:52 | Inpatient (IN) | payer MEDICAID ==
[~2018-01-04] VITALS: Ht 165.1 cm; Wt 75.8 kg
[2018-01-04 22:42] LABS: Hemoglobin 8.1 g/dL (13.5-17.5); Mean Corpuscular Hemoglobin 29.8 pg (28.0-32.0); Mean Corpuscular Hgb Conc. 31.9 g/dL (32.0-36.0); Red Blood Cells 2.72 10^6/uL (4.5-5.90); Red Cell Distribution Width 17.5 % (11.8-14.3)
[2018-01-04 22:44] LABS: Hematocrit 25.4 % (41.0-53.0); Mean Corpuscular Volume 93.5 fL (80.0-100.0); Platelet Count (auto) 92 10^3/uL (140-450); White Blood Cell 4.8 10^3/uL (4.4-10.8)
[2018-01-04 22:55] LABS: INR 1.06 (0.9-1.15); Partial Thromboplastin Time 27.8 sec (22.64-33.71); Prothrombin Time 11.6 sec (9.37-12.3)
[2018-01-04 22:57] LABS: Blast Cells 0; Myelocytes % 0; Promyelocytes % 0; Reactive Lymphocytes 0
[2018-01-04 23:10] LABS: Albumin 3.6 g/dL (3.4-5.0); Calcium 6.6 mg/dL (8.5-10.1); Magnesium 2.9 mg/dL (1.6-2.6)
[2018-01-04 23:20] LABS: BUN/Creatinine Ratio 7.5; Bilirubin, Total 0.6 mg/dL (0.2-1.0); Total Protein 8.4 g/dL (6.4-8.2)
[2018-01-04 23:28] LABS: Potassium 5.9 mmol/L (3.5-5.1)
[2018-01-04 23:43] LABS: Band Neutrophils % (manual) 2; Basophils % (manual) 1 (0.0-2.0); Eosinophils % (manual) 6 (0-7); Lymphocytes % (manual) 23 (10.0-50.0); Metamyelocytes % 2; Monocytes % (manual) 8 (0-12)
[2018-01-05] MEDS ORDERED: IPRATROPIUM BROM 0.5 MG/2.5ML INH SOL NEB ONE (02:15)
[2018-01-05] MEDS ORDERED: ONDANSETRON HCL 4 MG/2 ML VIAL IV ONE (02:15)
[2018-01-05] MEDS ORDERED: methylPREDNISolone SOD SUCC 125 MG/2 ML VL IV ONE (02:15)
[2018-01-05] MEDS ORDERED: ALBUTEROL SULF 2.5 MG/0.5ML(0.5%) NEB SOLN NEB ONE (02:15)
[2018-01-05] MEDS ORDERED: FUROSEMIDE 20 MG/2 ML VIAL IV ONE (02:15)
[2018-01-05] MEDS ORDERED: MORPHINE SULFATE 4 MG/ML SYR/VIAL IV ONE (02:15)
[2018-01-05] MEDS ORDERED: SODIUM POLYSTYRENE SULF 15GM/60ML SUSP PO ONE ×2 (05:45→10:30)
[2018-01-05] MEDS ORDERED: DEXTROSE (50%) 50ML SYRG IV PRN (06:30)
[2018-01-05] MEDS ORDERED: ACETAMINOPHEN 325 MG TAB PO PRN (06:30)
[2018-01-05] MEDS ORDERED: MORPHINE SULFATE 4 MG/ML SYR/VIAL IV PRN (06:30)
[2018-01-05] MEDS ORDERED: TEMAZEPAM 15 MG CAP PO PRN (06:30)
[2018-01-05] MEDS ORDERED: NITROGLYCERIN 0.4 MG SL TAB SL PRN (06:30)
[2018-01-05] MEDS ORDERED: cloNIDine HCL 0.1 MG TAB PO PRN (06:30)
[2018-01-05] MEDS ORDERED: HYDROcodone-ACET 5/325MG TAB PO PRN (06:30)
[2018-01-05] MEDS ORDERED: ONDANSETRON HCL 4 MG/2 ML VIAL IV PRN (06:30)
[2018-01-05] MEDS: ALBUTEROL SULF 2.5 MG/0.5ML(0.5%) NEB SOLN NEB PRN (07:00)
[2018-01-05] MEDS: IPRATROPIUM BROM 0.5 MG/2.5ML INH SOL NEB PRN (07:00)
[2018-01-05] MEDS ORDERED: cefTRIAXone 1GM/10ml IVPUSH 10 ML IV ONE (07:30)
[2018-01-05] MEDS ORDERED: AZITHROMYCIN 500MG/ 250ML 250 ML IV ONE (08:15)
[2018-01-05] MEDS ORDERED: DEXTROSE (50%) 50ML SYRG IV ONE (09:30)
[2018-01-05] MEDS ORDERED: SODIUM BICARBONATE 8.4% INJ 50ML SYRINGE IV ONE (09:30)
[2018-01-05] MEDS ORDERED: InsuLIN REG 1unit/0.01ml Soln (100units/ml) IV ONE (09:30)
[2018-01-05] MEDS ORDERED: CALCIUM CHL 100MG/ML 1,000 MG in D5W 5% 100 ML IV ONE (09:30)
[2018-01-05] MEDS ORDERED: CALCIUM GLUC 4.65meq/50ml D5AE 50 ML IV ONE (09:30)
[2018-01-05] MEDS ORDERED: PANTOPRAZOLE 40 MG TAB PO SCH (10:00)
[2018-01-05] MEDS ORDERED: hydrALAZINE HCL 25 MG TAB PO SCH (10:00)
[2018-01-05] MEDS ORDERED: ASPirin 81 mg TAB PO SCH (10:00)
[2018-01-05] MEDS ORDERED: amLODIPine BESYLATE 5 MG TAB PO SCH (10:00)
[2018-01-05] MEDS ORDERED: FUROSEMIDE 40 MG TAB PO SCH (10:00)
[2018-01-05] MEDS: HEPARIN SODIUM (PORCINE) 5000 UNITS/ML 1ML VIAL SC SCH ×2 (10:00→23:25)
[2018-01-05 10:24] VITALS: BP 145/77
[2018-01-05] MEDS: methylPREDNISolone SOD SUCC 125 MG/2 ML VL IV SCH ×2 (11:00→23:24)
[2018-01-05] MEDS ORDERED: EPOETIN ALFA 10,000 UNIT/1 ML VIAL IV ONE (13:00)
[2018-01-05] MEDS ORDERED: HEPARIN 1,000 UNITS/ml 1ML VIAL IV ONE ×3 (13:45→15:00)
[2018-01-05] MEDS: ACCU-CHEK COMFORT CURVE STRIP VI SCH ×3 (15:10→23:29)
[2018-01-05] MEDS: InsuLIN REG 1unit/0.01ml Soln (100units/ml) SC SCH ×3 (15:14→23:28)
[2018-01-05] MEDS ORDERED: HEPARIN SODIUM (PORCINE) 5000 UNITS/ML 1ML VIAL IV ONE (15:15)
[2018-01-05] MEDS ORDERED: CEPH-37 PO (16:23)
[2018-01-05 17:28] VITALS: BP 147/75
[2018-01-05 17:32] VITALS: BP 147/75
[2018-01-05 22:00] VITALS: BP 153/79
[2018-01-06] MEDS: IPRATROPIUM BROM 0.5 MG/2.5ML INH SOL NEB PRN (04:30)
[2018-01-06] MEDS: ALBUTEROL SULF 2.5 MG/0.5ML(0.5%) NEB SOLN NEB PRN (04:30)
[2018-01-06 05:00] VITALS: BP 158/83
[2018-01-06] MEDS: InsuLIN REG 1unit/0.01ml Soln (100units/ml) SC SCH (06:08)
[2018-01-06] MEDS: ACCU-CHEK COMFORT CURVE STRIP VI SCH (06:09)
[2018-01-06 08:14] LABS: White Blood Cell 3.8 10^3/uL (4.4-10.8)
[2018-01-06 08:17] LABS: Hematocrit 24.6 % (41.0-53.0); Mean Corpuscular Hemoglobin 30.3 pg (28.0-32.0); Mean Corpuscular Hgb Conc. 32.8 g/dL (32.0-36.0); Mean Corpuscular Volume 92.3 fL (80.0-100.0); Platelet Count (auto) 86 10^3/uL (140-450); Red Blood Cells 2.66 10^6/uL (4.5-5.90); Red Cell Distribution Width 17.3 % (11.8-14.3)
[2018-01-06 08:34] LABS: Basophils % (manual) 0 (0.0-2.0); Blast Cells 0; Promyelocytes % 0; Reactive Lymphocytes 0
[2018-01-06 08:42] LABS: Albumin 3.7 g/dL (3.4-5.0); BUN/Creatinine Ratio 7.5; Calcium 7.2 mg/dL (8.5-10.1)
[2018-01-06 08:45] LABS: Bilirubin, Total 0.6 mg/dL (0.2-1.0); Total Protein 8.3 g/dL (6.4-8.2)
[2018-01-06] MEDS ORDERED: cefTRIAXone 1GM/10ml IVPUSH 10 ML IV SCH (09:00)
[2018-01-06 09:29] LABS: Potassium 5.9 mmol/L (3.5-5.1)
[2018-01-06] MEDS ORDERED: AZITHROMYCIN 500MG/ 250ML 250 ML IV SCH (10:00)
[2018-01-06 15:05] LABS: Band Neutrophils % (manual) 3; Eosinophils % (manual) 2 (0-7); Lymphocytes % (manual) 6 (10.0-50.0); Metamyelocytes % 2; Monocytes % (manual) 2 (0-12); Myelocytes % 1
[2018-01-07] MEDS ORDERED: ALBU0.084 NEB (13:11)
[2018-01-07] MEDS ORDERED: DEXT1SYP6 PO (13:11)
[2018-01-07] MEDS ORDERED: IPR002IS NEB (13:11)
[2018-01-07] MEDS ORDERED: AMOX500C2 PO (13:11)
[2018-01-07] MEDS ORDERED: AZIT500T4 PO (13:11)
[2018-01-07] MEDS ORDERED: ALBUAER3 IN (13:11)
[2018-01-07] MEDS ORDERED: FURO40TA4 PO (13:13)
[2018-01-07] MEDS ORDERED: HYDR-4683 PO ×2 (13:42→13:45)
== END 2018-01-06 08:35 | disposition home or self-care (01) | DRG 139 ==
LOC: ER 20:52 → OBSVTOIN 20:53 → TELE 20:53 → TELE-WESTW 01-05 17:25
PROVIDERS: ADMIT Nurse Practitioner; ATTEND Hospitalist
PROC: 5A1D70Z Performance of Urinary Filtration, Intermittent, Less than 6 Hours Per Day (ICD-10-PCS; principal; 2018-01-05)
DX: J18.1 Lobar pneumonia, unspecified organism (principal); I13.2 Hypertensive heart and chronic kidney disease with heart failure and with stage 5 chronic kidney disease, or end stage renal disease; N18.6 End stage renal disease; E11.22 Type 2 diabetes mellitus with diabetic chronic kidney disease; J44.0 Chronic obstructive pulmonary disease with (acute) lower respiratory infection; E87.5 Hyperkalemia; Z82.3 Family history of stroke; I50.9 Heart failure, unspecified; E11.65 Type 2 diabetes mellitus with hyperglycemia; G47.00 Insomnia, unspecified; D63.8 Anemia in other chronic diseases classified elsewhere; E78.5 Hyperlipidemia, unspecified; J06.9 Acute upper respiratory infection, unspecified; R09.02 Hypoxemia; Z99.2 Dependence on renal dialysis; Z82.49 Family history of ischemic heart disease and other diseases of the circulatory system; Z91.15 Patient's noncompliance with renal dialysis; Z83.3 Family history of diabetes mellitus; Z91.19 Patient's noncompliance with other medical treatment and regimen; Z88.1 Allergy status to other antibiotic agents; Z79.899 Other long term (current) drug therapy; Z79.4 Long term (current) use of insulin
CPT/HCPCS: 36415; 71045; 80053; 82962; 83735; 83880; 84132; 84484; 85007; 85027; 85610; 85730; 87040; 90935; 93005; 93306; 94640; 96365; 96375; J0885; J1642; J1815; J2405; J7060

== ENCOUNTER 2018-01-06 13:41 | Inpatient (IN) | payer MEDICAID ==
[~2018-01-06] VITALS: Ht 165.1 cm; Wt 70.3 kg
[~2018-01-06 13:41] MED LIST changes: +CEPH-37 PO
[2018-01-06 15:49] LABS: Basophils # (auto) 0 uL; Basophils % (auto) 0.3 % (0.0-2.0); Eosinophils # (auto) 0 uL; Hemoglobin 8.9 g/dL (13.5-17.5); Lymphocytes # (auto) 0.4 uL; Monocytes # (auto) 0.4 uL; Neutrophils % (auto) 84.6 % (37.0-80.0)
[2018-01-06 15:53] LABS: Hematocrit 27.2 % (41.0-53.0); Lymphocytes % (auto) 7.3 % (10.0-50.0); Mean Corpuscular Hemoglobin 30.1 pg (28.0-32.0); Mean Corpuscular Hgb Conc. 32.7 g/dL (32.0-36.0); Mean Corpuscular Volume 91.9 fL (80.0-100.0); Monocytes % (auto) 7.8 % (0.0-12.0); Neutrophils # (auto) 4.8 uL; Nucleated Red Blood Cells % 1.3 %; Platelet Count (auto) 113 10^3/uL (140-450); Red Blood Cells 2.95 10^6/uL (4.5-5.90); Red Cell Distribution Width 17.7 % (11.8-14.3); White Blood Cell 5.6 10^3/uL (4.4-10.8)
[2018-01-06 16:00] LABS: INR 1.08 (0.9-1.15); Prothrombin Time 11.8 sec (9.37-12.3)
[2018-01-06 16:11] LABS: Albumin 4.2 g/dL (3.4-5.0); BUN/Creatinine Ratio 8.2; Bilirubin, Total 0.6 mg/dL (0.2-1.0); Calcium 7.3 mg/dL (8.5-10.1); Total Protein 9.6 g/dL (6.4-8.2)
[2018-01-06 16:36] LABS: Potassium 5.8 mmol/L (3.5-5.1)
[2018-01-06] MEDS ORDERED: ALBUTEROL SULF 2.5 MG/0.5ML(0.5%) NEB SOLN NEB STA (16:40)
[2018-01-06] MEDS ORDERED: InsuLIN REG 1unit/0.01ml Soln (100units/ml) IV ONE (16:45)
[2018-01-06] MEDS ORDERED: CALCIUM GLUC 4.65meq/50ml D5AE 50 ML IV ONE (16:45)
[2018-01-06] MEDS ORDERED: SODIUM BICARBONATE 8.4% INJ 50ML SYRINGE IV ONE (16:45)
[2018-01-06] MEDS ORDERED: DEXTROSE (50%) 50ML SYRG IV ONE (16:45)
[2018-01-06] MEDS ORDERED: DEXTROSE (50%) 50ML SYRG IV PRN (21:15)
[2018-01-06] MEDS ORDERED: ONDANSETRON HCL 4 MG/2 ML VIAL IV PRN (21:15)
[2018-01-06] MEDS ORDERED: MORPHINE SULFATE 4 MG/ML SYR/VIAL IV PRN (21:15)
[2018-01-06] MEDS ORDERED: cloNIDine HCL 0.1 MG TAB PO PRN (21:15)
[2018-01-06] MEDS ORDERED: ACETAMINOPHEN 325 MG TAB PO PRN (21:15)
[2018-01-06] MEDS ORDERED: NITROGLYCERIN 0.4 MG SL TAB SL PRN (21:15)
[2018-01-06] MEDS ORDERED: PANTOPRAZOLE 40 MG TAB PO ONE (21:15)
[2018-01-06] MEDS ORDERED: HYDROcodone-ACET 5/325MG TAB PO PRN (21:15)
[2018-01-06] MEDS ORDERED: cefTRIAXone 1GM/10ml IVPUSH 10 ML IV ONE (21:15)
[2018-01-06] MEDS ORDERED: ALBUTEROL SULF 2.5 MG/0.5ML(0.5%) NEB SOLN NEB PRN (21:15)
[2018-01-06] MEDS ORDERED: AZITHROMYCIN 500MG/ 250ML 250 ML IV ONE (21:30)
[2018-01-06] MEDS ORDERED: ASPirin 81 mg TAB PO ONE (21:30)
[2018-01-06] MEDS: hydrALAZINE HCL 25 MG TAB PO SCH (22:00)
[2018-01-06] MEDS: HEPARIN SODIUM (PORCINE) 5000 UNITS/ML 1ML VIAL SC SCH (22:00)
[2018-01-07] MEDS ORDERED: AZITHROMYCIN 250 MG TAB PO ONE (03:15)
[2018-01-07] MEDS ORDERED: AMOXICILLIN TRIHYDRATE 250 MG CAP PO ONE (03:15)
[2018-01-07] MEDS: InsuLIN REG 1unit/0.01ml Soln (100units/ml) SC SCH ×4 (06:00→18:53)
[2018-01-07] MEDS: ACCU-CHEK COMFORT CURVE STRIP VI SCH ×4 (06:07→18:53)
[2018-01-07] MEDS ORDERED: METOPROLOL TARTRATE 1MG/1ML-5ML VIAL IV ONE ×2 (06:19→06:45)
[2018-01-07] MEDS: FUROSEMIDE 40 MG TAB PO SCH ×2 (06:26→18:53)
[2018-01-07 08:27] LABS: Basophils # (auto) 0 uL; Basophils % (auto) 0.3 % (0.0-2.0); Lymphocytes # (auto) 0.9 uL; Monocytes # (auto) 0.5 uL; Red Blood Cells 2.66 10^6/uL (4.5-5.90); White Blood Cell 5.8 10^3/uL (4.4-10.8)
[2018-01-07 08:31] LABS: Eosinophils # (auto) 0 uL; Eosinophils % (auto) 0.8 % (0.0-7.0); Hematocrit 24.7 % (41.0-53.0); Lymphocytes % (auto) 15.3 % (10.0-50.0); Mean Corpuscular Hemoglobin 29.9 pg (28.0-32.0); Mean Corpuscular Hgb Conc. 32.2 g/dL (32.0-36.0); Mean Corpuscular Volume 92.8 fL (80.0-100.0); Monocytes % (auto) 9.3 % (0.0-12.0); Neutrophils # (auto) 4.3 uL; Neutrophils % (auto) 74.3 % (37.0-80.0); Nucleated Red Blood Cells % 0.5 %; Platelet Count (auto) 101 10^3/uL (140-450); Red Cell Distribution Width 17.8 % (11.8-14.3)
[2018-01-07] MEDS ORDERED: cefTRIAXone 1GM/10ml IVPUSH 10 ML IV SCH (09:00)
[2018-01-07] MEDS: HEPARIN SODIUM (PORCINE) 5000 UNITS/ML 1ML VIAL SC SCH (09:48)
[2018-01-07] MEDS: hydrALAZINE HCL 25 MG TAB PO SCH (09:48)
[2018-01-07] MEDS ORDERED: amLODIPine BESYLATE 5 MG TAB PO SCH (10:00)
[2018-01-07] MEDS ORDERED: ASPirin 81 mg TAB PO SCH (10:00)
[2018-01-07] MEDS ORDERED: ENOXAPARIN SOD 30 MG/0.3 ML SYRINGE SC SCH (10:00)
[2018-01-07] MEDS ORDERED: AZITHROMYCIN 500MG/ 250ML 250 ML IV SCH (10:00)
[2018-01-07] MEDS ORDERED: AMOX500C2 PO (13:11)
[2018-01-07] MEDS ORDERED: AZIT500T4 PO (13:11)
[2018-01-07] MEDS ORDERED: DEXT1SYP6 PO (13:11)
[2018-01-07] MEDS ORDERED: ALBUAER3 IN (13:11)
[2018-01-07] MEDS ORDERED: ALBU0.084 NEB (13:11)
[2018-01-07] MEDS ORDERED: IPR002IS NEB (13:11)
[2018-01-07] MEDS ORDERED: FURO40TA4 PO (13:13)
[2018-01-07] MEDS ORDERED: FUROSEMIDE 20 MG TAB PO ONE (13:15)
[2018-01-07] MEDS ORDERED: HYDR-4683 PO ×2 (13:42→13:45)
[2018-01-07 14:45] VITALS: BP 122/68
[2018-01-07 19:07] LABS: Albumin 3.8 g/dL (3.4-5.0); BUN/Creatinine Ratio 8.1; Bilirubin, Total 0.5 mg/dL (0.2-1.0); Calcium 6.8 mg/dL (8.5-10.1); Potassium 3.7 mmol/L (3.5-5.1); Total Protein 8.6 g/dL (6.4-8.2)
[2018-01-07 19:31] VITALS: BP 168/68
== END 2018-01-07 20:20 | disposition home or self-care (01) | DRG 139 ==
LOC: ER 13:41 → TELE 13:42
PROVIDERS: ADMIT Nurse Practitioner; ATTEND Internal Medicine
PROC: 5A1D70Z Performance of Urinary Filtration, Intermittent, Less than 6 Hours Per Day (ICD-10-PCS; principal; 2018-01-07)
DX: J18.9 Pneumonia, unspecified organism (principal); I13.2 Hypertensive heart and chronic kidney disease with heart failure and with stage 5 chronic kidney disease, or end stage renal disease; J96.11 Chronic respiratory failure with hypoxia; N18.6 End stage renal disease; J44.0 Chronic obstructive pulmonary disease with (acute) lower respiratory infection; E11.22 Type 2 diabetes mellitus with diabetic chronic kidney disease; I50.9 Heart failure, unspecified; K74.60 Unspecified cirrhosis of liver; Z99.2 Dependence on renal dialysis; D63.1 Anemia in chronic kidney disease; E87.5 Hyperkalemia; F14.90 Cocaine use, unspecified, uncomplicated; Z82.3 Family history of stroke; Z82.49 Family history of ischemic heart disease and other diseases of the circulatory system; Z83.3 Family history of diabetes mellitus; Z88.1 Allergy status to other antibiotic agents; Z91.19 Patient's noncompliance with other medical treatment and regimen; Z99.81 Dependence on supplemental oxygen
CPT/HCPCS: 36415; 71046; 80053; 82962; 83880; 84132; 84484; 85025; 85610; 85730; 87040; 90935; 96374; 96375; 96376; 99291; J0610

== ENCOUNTER 2018-01-08 00:44 | Emergency (ER) | payer MEDICAID ==
[~2018-01-08] VITALS: Ht 165.1 cm; Wt 70.3 kg
[~2018-01-08 00:44] MED LIST changes: +ALBU0.084 NEB; +AMOX500C2 PO; +AZIT500T4 PO; -CEPH-37 PO; +DEXT1SYP6 PO; -FURO40TA PO; +FURO40TA4 PO; +HYDR-4683 PO; +IPR002IS NEB
[2018-01-08 01:35] LABS: Hematocrit 26.2 % (41.0-53.0); Hemoglobin 8.5 g/dL (13.5-17.5); Mean Corpuscular Hemoglobin 29.7 pg (28.0-32.0); Mean Corpuscular Hgb Conc. 32.4 g/dL (32.0-36.0); Mean Corpuscular Volume 91.6 fL (80.0-100.0); Platelet Count (auto) 105 10^3/uL (140-450); Red Blood Cells 2.86 10^6/uL (4.5-5.90); Red Cell Distribution Width 18.5 % (11.8-14.3); White Blood Cell 6.1 10^3/uL (4.4-10.8)
[2018-01-08 01:44] LABS: Basophils % (manual) 0 (0.0-2.0); Blast Cells 0; Metamyelocytes % 0; Promyelocytes % 0; Reactive Lymphocytes 0
[2018-01-08 01:52] LABS: INR 1.1 (0.9-1.15); Partial Thromboplastin Time 29.9 sec (22.64-33.71)
[2018-01-08 01:57] LABS: Albumin 3.9 g/dL (3.4-5.0); BUN/Creatinine Ratio 7.9; Calcium 6.7 mg/dL (8.5-10.1); Magnesium 2.5 mg/dL (1.6-2.6); Potassium 4.8 mmol/L (3.5-5.1)
[2018-01-08 02:02] LABS: Bilirubin, Total 0.5 mg/dL (0.2-1.0); Total Protein 8.5 g/dL (6.4-8.2)
[2018-01-08 02:05] LABS: Band Neutrophils % (manual) 7; Eosinophils % (manual) 1 (0-7); Lymphocytes % (manual) 10 (10.0-50.0); Monocytes % (manual) 9 (0-12); Myelocytes % 2
[2018-01-08 06:45] VITALS: BP 150/74
== END 2018-01-08 05:49 | disposition home or self-care (01) ==
LOC: EDBD 00:44 → ER 00:46
DX: E11.22 Type 2 diabetes mellitus with diabetic chronic kidney disease (principal); N18.6 End stage renal disease; I13.2 Hypertensive heart and chronic kidney disease with heart failure and with stage 5 chronic kidney disease, or end stage renal disease; I50.9 Heart failure, unspecified; J44.9 Chronic obstructive pulmonary disease, unspecified; Z79.4 Long term (current) use of insulin; Z99.2 Dependence on renal dialysis
CPT/HCPCS: 36415; 80053; 80320; 83735; 83880; 84484; 85007; 85027; 85379; 85610; 85730; 93005

== ENCOUNTER 2018-01-16 09:47 | Inpatient (IN) | payer MEDICAID ==
[~2018-01-16] VITALS: Ht 165.1 cm; Wt 77.3 kg
[2018-01-16] MEDS ORDERED: ONDANSETRON HCL 4 MG/2 ML VIAL IM ONE (11:15)
[2018-01-16] MEDS ORDERED: MORPHINE SULFATE 4 MG/ML SYR/VIAL IM ONE (11:15)
[2018-01-16] MEDS ORDERED: PROMETHAZINE HCL 25 MG/ML 1ML IV PRN (16:00)
[2018-01-16] MEDS ORDERED: LORazepam 0.5 MG TAB PO PRN (16:00)
[2018-01-16] MEDS ORDERED: ACETAMINOPHEN 500 MG TAB PO PRN (16:00)
[2018-01-16] MEDS ORDERED: TEMAZEPAM 15 MG CAP PO PRN (16:00)
[2018-01-16] MEDS ORDERED: NITROGLYCERIN 0.4 MG SL TAB SL PRN (16:00)
[2018-01-16] MEDS ORDERED: DEXTROSE (50%) 50ML SYRG IV PRN (16:00)
[2018-01-16] MEDS ORDERED: MORPHINE SULFATE 4 MG/ML SYR/VIAL IV PRN (16:00)
[2018-01-16] MEDS ORDERED: LACTULOSE 20Gm/30ML SOLN PO PRN ×2 (16:00)
[2018-01-16 16:53] LABS: Basophils % (auto) 0.9 % (0.0-2.0); Eosinophils # (auto) 0.2 uL; Monocytes # (auto) 0.8 uL; Neutrophils # (auto) 3.6 uL; Nucleated Red Blood Cells % 0.4 %
[2018-01-16 16:54] LABS: Basophils # (auto) 0 uL; Eosinophils % (auto) 3.3 % (0.0-7.0); Hematocrit 26.8 % (41.0-53.0); Hemoglobin 8.1 g/dL (13.5-17.5); Lymphocytes % (auto) 17.5 % (10.0-50.0); Mean Corpuscular Hemoglobin 29.7 pg (28.0-32.0); Mean Corpuscular Hgb Conc. 30.4 g/dL (32.0-36.0); Mean Corpuscular Volume 97.6 fL (80.0-100.0); Monocytes % (auto) 13.9 % (0.0-12.0); Neutrophils % (auto) 64.4 % (37.0-80.0); Platelet Count (auto) 75 10^3/uL (140-450); Red Blood Cells 2.75 10^6/uL (4.5-5.90); Red Cell Distribution Width 19.7 % (11.8-14.3); White Blood Cell 5.6 10^3/uL (4.4-10.8)
[2018-01-16] MEDS: InsuLIN REG 1unit/0.01ml Soln (100units/ml) SC SCH ×2 (17:00→22:00)
[2018-01-16 17:03] LABS: Albumin 3.3 g/dL (3.4-5.0); Calcium 6.8 mg/dL (8.5-10.1)
[2018-01-16 17:05] LABS: BUN/Creatinine Ratio 6.9
[2018-01-16] MEDS: ACCU-CHEK COMFORT CURVE STRIP VI SCH ×2 (17:05→22:14)
[2018-01-16 17:08] LABS: Bilirubin, Total 0.7 mg/dL (0.2-1.0); Total Protein 8.1 g/dL (6.4-8.2)
[2018-01-16 17:11] LABS: Potassium 6.1 mmol/L (3.5-5.1)
[2018-01-16] MEDS ORDERED: SODIUM POLYSTYRENE SULF 15GM/60ML SUSP PO ONE ×2 (17:45→19:30)
[2018-01-16 18:04] LABS: Folate (Folic Acid) 20.59 ng/mL (5.38-24)
[2018-01-16] MEDS ORDERED: DEXTROSE (50%) 50ML SYRG IV ONE (18:15)
[2018-01-16] MEDS ORDERED: FUROSEMIDE 100 MG/10ML VIAL IV ONE (18:15)
[2018-01-16] MEDS ORDERED: InsuLIN REG 1unit/0.01ml Soln (100units/ml) IV ONE (18:15)
[2018-01-16] MEDS: SODIUM CHLOR 0.9% PF (SALINE LOCK) 10ML VIAL IV SCH (19:15)
[2018-01-16 19:30] VITALS: BP 137/70
[2018-01-16] MEDS ORDERED: PNEUMOCOCCAL VACC POLYS 25 MCG/0.5 ML VIAL IM ONE (23:30)
[2018-01-17] MEDS ORDERED: INFLUENZA QUAD 2017-2018 0.5 ML SYRG IM ONE
[2018-01-17] MEDS: MORPHINE SULFATE 4 MG/ML SYR/VIAL IV PRN (02:00)
[2018-01-17 05:00] VITALS: BP 98/53
[2018-01-17] MEDS: ACCU-CHEK COMFORT CURVE STRIP VI SCH ×4 (06:02→20:58)
[2018-01-17] MEDS: InsuLIN REG 1unit/0.01ml Soln (100units/ml) SC SCH ×4 (06:02→20:58)
[2018-01-17] MEDS: SODIUM CHLOR 0.9% PF (SALINE LOCK) 10ML VIAL IV SCH ×3 (06:02→20:58)
[2018-01-17 06:41] LABS: Basophils # (auto) 0 uL; Basophils % (auto) 0.8 % (0.0-2.0); Eosinophils # (auto) 0.2 uL; Eosinophils % (auto) 3.3 % (0.0-7.0); Hematocrit 29.8 % (41.0-53.0); Hemoglobin 9.2 g/dL (13.5-17.5); Lymphocytes % (auto) 17.4 % (10.0-50.0); Mean Corpuscular Hemoglobin 29.5 pg (28.0-32.0); Mean Corpuscular Volume 95.2 fL (80.0-100.0); Monocytes # (auto) 0.8 uL; Monocytes % (auto) 14.4 % (0.0-12.0); Neutrophils # (auto) 3.7 uL; Neutrophils % (auto) 64.1 % (37.0-80.0); Nucleated Red Blood Cells % 0.2 %; Platelet Count (auto) 85 10^3/uL (140-450); Red Blood Cells 3.13 10^6/uL (4.5-5.90); Red Cell Distribution Width 19.4 % (11.8-14.3); White Blood Cell 5.7 10^3/uL (4.4-10.8)
[2018-01-17 06:56] LABS: Albumin 3.6 g/dL (3.4-5.0); BUN/Creatinine Ratio 7.7; Bilirubin, Total 0.6 mg/dL (0.2-1.0); Total Protein 8.6 g/dL (6.4-8.2)
[2018-01-17 07:00] LABS: Potassium 5.7 mmol/L (3.5-5.1)
[2018-01-17] MEDS ORDERED: InsuLIN REG 1unit/0.01ml Soln (100units/ml) IV ONE (07:45)
[2018-01-17] MEDS ORDERED: CALCIUM GLUC 4.65meq/50ml D5AE 50 ML IV ONE (07:45)
[2018-01-17] MEDS ORDERED: SODIUM BICARBONATE 8.4 % INJ 50ML VIAL IV ONE (07:45)
[2018-01-17] MEDS ORDERED: SODIUM POLYSTYRENE SULF 15GM/60ML SUSP PO ONE (07:45)
[2018-01-17] MEDS: DEXTROSE (50%) 50ML SYRG IV ONE ×2 (07:45→08:40)
[2018-01-17 07:49] VITALS: BP 104/54
[2018-01-17] MEDS ORDERED: EPOETIN ALFA 10,000 UNIT/1 ML VIAL IV ONE (09:15)
[2018-01-17] MEDS ORDERED: SODIUM CHL 0.9% 1000 ML BAG XX ONE (09:15)
[2018-01-17] MEDS: ASPirin 81 mg TAB PO SCH (10:38)
[2018-01-17] MEDS: PANTOPRAZOLE 40 MG TAB PO SCH (10:38)
[2018-01-17] MEDS: MULTIPLE VITAMIN TAB PO SCH (10:38)
[2018-01-17 12:25] VITALS: BP 94/96
[2018-01-17] MEDS ORDERED: LORazepam 2MG/ML-1ML VIAL IV PRN (15:45)
[2018-01-17 17:20] VITALS: BP 119/61
[2018-01-17 20:00] VITALS: BP 117/67
[2018-01-17] MEDS: HYDROcodone-ACET 5/325MG TAB PO PRN (20:58)
[2018-01-17 22:00] VITALS: BP 117/67
[2018-01-18] VITALS (7 sets, daily range): BP systolic 113–138; BP diastolic 54–75
[2018-01-18] MEDS: SODIUM CHLOR 0.9% PF (SALINE LOCK) 10ML VIAL IV SCH ×3 (06:27→22:00)
[2018-01-18] MEDS: InsuLIN REG 1unit/0.01ml Soln (100units/ml) SC SCH ×4 (06:28→22:00)
[2018-01-18] MEDS: ACCU-CHEK COMFORT CURVE STRIP VI SCH ×4 (06:28→22:22)
[2018-01-18 07:58] LABS: Basophils # (auto) 0 uL; Eosinophils # (auto) 0.2 uL; Hemoglobin 8.2 g/dL (13.5-17.5); Lymphocytes # (auto) 1.1 uL; Monocytes # (auto) 0.7 uL
[2018-01-18 08:00] LABS: Eosinophils % (auto) 4.1 % (0.0-7.0); Hematocrit 25.4 % (41.0-53.0); Lymphocytes % (auto) 24.4 % (10.0-50.0); Mean Corpuscular Hemoglobin 30.1 pg (28.0-32.0); Mean Corpuscular Hgb Conc. 32.4 g/dL (32.0-36.0); Mean Corpuscular Volume 92.8 fL (80.0-100.0); Monocytes % (auto) 15.4 % (0.0-12.0); Neutrophils # (auto) 2.5 uL; Neutrophils % (auto) 55.1 % (37.0-80.0); Nucleated Red Blood Cells % 0.5 %; Platelet Count (auto) 79 10^3/uL (140-450); Red Blood Cells 2.74 10^6/uL (4.5-5.90); Red Cell Distribution Width 18.2 % (11.8-14.3); White Blood Cell 4.5 10^3/uL (4.4-10.8)
[2018-01-18 08:25] LABS: BUN/Creatinine Ratio 7.2; Calcium 6.5 mg/dL (8.5-10.1); Phosphorus 8.7 mg/dL (2.5-4.90); Potassium 5.1 mmol/L (3.5-5.1)
[2018-01-18] MEDS: HYDROcodone-ACET 5/325MG TAB PO PRN ×3 (10:10→22:19)
[2018-01-18] MEDS: ASPirin 81 mg TAB PO SCH (10:10)
[2018-01-18] MEDS: PANTOPRAZOLE 40 MG TAB PO SCH (10:10)
[2018-01-18] MEDS: MULTIPLE VITAMIN TAB PO SCH (10:10)
[2018-01-18] MEDS: ALBUTEROL SULF 2.5 MG/0.5ML(0.5%) NEB SOLN NEB SCH ×2 (12:00→18:51)
[2018-01-18] MEDS: IPRATROPIUM BROM 0.5 MG/2.5ML INH SOL NEB SCH ×2 (12:00→18:50)
[2018-01-18] MEDS: SEVELAMER 800 MG TAB PO SCH ×2 (12:24→18:12)
[2018-01-18] MEDS: MORPHINE SULFATE 4 MG/ML SYR/VIAL IV PRN (14:43)
[2018-01-19] MEDS: IPRATROPIUM BROM 0.5 MG/2.5ML INH SOL NEB SCH ×4 (00:12→11:57)
[2018-01-19] MEDS: ALBUTEROL SULF 2.5 MG/0.5ML(0.5%) NEB SOLN NEB SCH ×4 (00:12→11:57)
[2018-01-19 05:00] VITALS: BP 116/61
[2018-01-19] MEDS: SODIUM CHLOR 0.9% PF (SALINE LOCK) 10ML VIAL IV SCH ×2 (05:45→14:00)
[2018-01-19] MEDS: ACCU-CHEK COMFORT CURVE STRIP VI SCH ×2 (05:58→14:31)
[2018-01-19] MEDS: InsuLIN REG 1unit/0.01ml Soln (100units/ml) SC SCH ×2 (05:58→14:30)
[2018-01-19 06:51] LABS: Basophils # (auto) 0 uL; Basophils % (auto) 1.1 % (0.0-2.0); Eosinophils # (auto) 0.2 uL; Hemoglobin 7.9 g/dL (13.5-17.5); Monocytes # (auto) 0.6 uL; Neutrophils # (auto) 2.1 uL; Platelet Count (auto) 77 10^3/uL (140-450)
[2018-01-19 06:53] LABS: Eosinophils % (auto) 4.6 % (0.0-7.0); Hematocrit 24.5 % (41.0-53.0); Lymphocytes % (auto) 24.9 % (10.0-50.0); Mean Corpuscular Hemoglobin 30.1 pg (28.0-32.0); Mean Corpuscular Hgb Conc. 32.4 g/dL (32.0-36.0); Mean Corpuscular Volume 92.9 fL (80.0-100.0); Monocytes % (auto) 14.7 % (0.0-12.0); Neutrophils % (auto) 54.7 % (37.0-80.0); Nucleated Red Blood Cells % 0.6 %; Red Blood Cells 2.63 10^6/uL (4.5-5.90); Red Cell Distribution Width 18.3 % (11.8-14.3); White Blood Cell 3.9 10^3/uL (4.4-10.8)
[2018-01-19 07:12] LABS: BUN/Creatinine Ratio 7.6; Calcium 6.5 mg/dL (8.5-10.1); Potassium 5.3 mmol/L (3.5-5.1)
[2018-01-19] MEDS: SEVELAMER 800 MG TAB PO SCH ×2 (08:00→11:34)
[2018-01-19] MEDS ORDERED: SODIUM CHL 0.9% 1000 ML BAG XX ONE (08:30)
[2018-01-19 09:00] VITALS: BP 146/78
[2018-01-19] MEDS ORDERED: EPOETIN ALFA 10,000 UNIT/1 ML VIAL IV ONE (09:30)
[2018-01-19] MEDS ORDERED: PNEUMOCOCCAL VACC POLYS 25 MCG/0.5 ML VIAL IM ONE (10:45)
[2018-01-19] MEDS ORDERED: INFLUENZA QUAD 2017-2018 0.5 ML SYRG IM ONE (10:45)
[2018-01-19 11:14] VITALS: BP 157/75
[2018-01-19] MEDS: PANTOPRAZOLE 40 MG TAB PO SCH (11:34)
[2018-01-19] MEDS: ASPirin 81 mg TAB PO SCH (11:34)
[2018-01-19] MEDS: MULTIPLE VITAMIN TAB PO SCH (11:34)
[2018-01-19 12:40] VITALS: BP 119/57
[2018-01-19 12:51] VITALS: BP 139/78
== END 2018-01-19 14:15 | disposition home or self-care (01) | DRG 194 ==
LOC: ER 09:47 → TELE 09:48 → TELE-WESTW 19:35
PROVIDERS: ADMIT Internal Medicine; ATTEND Internal Medicine
PROC: 5A1D70Z Performance of Urinary Filtration, Intermittent, Less than 6 Hours Per Day (ICD-10-PCS; principal; 2018-01-17)
PROC: 5A1D70Z Performance of Urinary Filtration, Intermittent, Less than 6 Hours Per Day (ICD-10-PCS; 2018-01-19)
DX: I13.2 Hypertensive heart and chronic kidney disease with heart failure and with stage 5 chronic kidney disease, or end stage renal disease (principal); E87.2 Acidosis; N18.6 End stage renal disease; E11.22 Type 2 diabetes mellitus with diabetic chronic kidney disease; N25.81 Secondary hyperparathyroidism of renal origin; S09.90XA Unspecified injury of head, initial encounter; R55 Syncope and collapse; E11.51 Type 2 diabetes mellitus with diabetic peripheral angiopathy without gangrene; D64.9 Anemia, unspecified; S20.229A Contusion of unspecified back wall of thorax, initial encounter; I50.9 Heart failure, unspecified; E87.5 Hyperkalemia; F17.200 Nicotine dependence, unspecified, uncomplicated; G40.909 Epilepsy, unspecified, not intractable, without status epilepticus; J44.9 Chronic obstructive pulmonary disease, unspecified; K74.60 Unspecified cirrhosis of liver; I25.10 Atherosclerotic heart disease of native coronary artery without angina pectoris; M47.816 Spondylosis without myelopathy or radiculopathy, lumbar region; M54.9 Dorsalgia, unspecified; W18.39XA Other fall on same level, initial encounter; M48.07 Spinal stenosis, lumbosacral region; M77.8 Other enthesopathies, not elsewhere classified; Y93.89 Activity, other specified; Y92.89 Other specified places as the place of occurrence of the external cause; Z82.3 Family history of stroke; Z82.49 Family history of ischemic heart disease and other diseases of the circulatory system; Z83.3 Family history of diabetes mellitus; Z91.15 Patient's noncompliance with renal dialysis; Z99.2 Dependence on renal dialysis; Z88.1 Allergy status to other antibiotic agents; Z79.82 Long term (current) use of aspirin; Z76.5 Malingerer [conscious simulation]; Z23 Encounter for immunization
CPT/HCPCS: 36415; 70450; 71045; 72131; 80048; 80053; 80061; 82140; 82550; 82607; 82746; 82962; 83036; 84100; 84443; 85025; 85652; 87081; 90935; 93005; 94640; 96365; 96372; 96375; J0610; J0885; J1642; J1815; J2405

== ENCOUNTER 2018-01-20 15:38 | Emergency (ER) | payer MEDICAID ==
[~2018-01-20] VITALS: Ht 165.1 cm; Wt 70.3 kg
[2018-01-20] MEDS ORDERED: KETOROLAC TROMETH 60MG/2ML VIAL IM ONE (19:30)
[2018-01-20 19:32] VITALS: BP 134/86
== END 2018-01-20 20:15 | disposition home or self-care (01) ==
LOC: ER 15:43
DX: M79.1 Myalgia (principal); I13.2 Hypertensive heart and chronic kidney disease with heart failure and with stage 5 chronic kidney disease, or end stage renal disease; I50.9 Heart failure, unspecified; N18.6 End stage renal disease; E11.22 Type 2 diabetes mellitus with diabetic chronic kidney disease; J44.9 Chronic obstructive pulmonary disease, unspecified; Z88.1 Allergy status to other antibiotic agents; Z79.4 Long term (current) use of insulin; Z79.899 Other long term (current) drug therapy
CPT/HCPCS: 72220; 96372; 99284; J1885

== ENCOUNTER 2018-01-22 20:02 | Emergency (ER) | payer MEDICAID ==
[~2018-01-22] VITALS: Ht 167.6 cm; Wt 68.0 kg
[2018-01-23 07:08] VITALS: BP 165/82
[2018-01-23] MEDS ORDERED: HYDROcodone-ACET 5/325MG TAB PO ONE (07:15)
== END 2018-01-23 07:20 | disposition home or self-care (01) ==
LOC: EDBD 20:02 → ER 20:10
DX: G89.29 Other chronic pain (principal); M54.5 Low back pain; I13.2 Hypertensive heart and chronic kidney disease with heart failure and with stage 5 chronic kidney disease, or end stage renal disease; E11.22 Type 2 diabetes mellitus with diabetic chronic kidney disease; N18.6 End stage renal disease; I50.9 Heart failure, unspecified; J44.9 Chronic obstructive pulmonary disease, unspecified; Z79.899 Other long term (current) drug therapy; Z88.1 Allergy status to other antibiotic agents; Z88.8 Allergy status to other drugs, medicaments and biological substances

== ENCOUNTER 2018-02-01 13:24 | Emergency (ER) | payer MEDICAID ==
[~2018-02-01] VITALS: Ht 165.1 cm; Wt 70.3 kg
[2018-02-01 13:41] VITALS: BP 139/61
== END 2018-02-01 14:57 | disposition left against medical advice (07) ==
LOC: ER 13:24
DX: H92.02 Otalgia, left ear (principal); K08.89 Other specified disorders of teeth and supporting structures; Z53.21 Procedure and treatment not carried out due to patient leaving prior to being seen by health care provider

== ENCOUNTER 2018-02-03 14:59 | Inpatient (IN) | payer MEDICAID ==
[~2018-02-03] VITALS: Ht 165.1 cm; Wt 82.6 kg
[2018-02-03 19:18] LABS: Basophils # (auto) 0 uL; Eosinophils # (auto) 0.3 uL; Hematocrit 28.1 % (41.0-53.0); Hemoglobin 8.8 g/dL (13.5-17.5); Lymphocytes # (auto) 0.8 uL; Lymphocytes % (auto) 18.5 % (10.0-50.0); Mean Corpuscular Hemoglobin 29.4 pg (28.0-32.0); Mean Corpuscular Hgb Conc. 31.2 g/dL (32.0-36.0); Mean Corpuscular Volume 94.2 fL (80.0-100.0); Monocytes # (auto) 0.5 uL; Monocytes % (auto) 11.1 % (0.0-12.0); Neutrophils # (auto) 2.8 uL; Neutrophils % (auto) 63.4 % (37.0-80.0); Nucleated Red Blood Cells % 0.5 %; Platelet Count (auto) 77 10^3/uL (140-450); Red Blood Cells 2.98 10^6/uL (4.5-5.90); Red Cell Distribution Width 18.6 % (11.8-14.3); White Blood Cell 4.4 10^3/uL (4.4-10.8)
[2018-02-03 19:35] LABS: Albumin 3.3 g/dL (3.4-5.0); BUN/Creatinine Ratio 5.6; Calcium 6.7 mg/dL (8.5-10.1); Magnesium 2.4 mg/dL (1.6-2.6); Potassium 5.1 mmol/L (3.5-5.1)
[2018-02-03 19:40] LABS: Bilirubin, Total 0.5 mg/dL (0.2-1.0); Total Protein 7.8 g/dL (6.4-8.2)
[2018-02-03] MEDS ORDERED: cefTRIAXone 1GM/10ml IVPUSH 10 ML IV ONE (20:00)
[2018-02-03] MEDS ORDERED: NITROGLYCERIN 0.4 MG SL TAB SL PRN (22:15)
[2018-02-03] MEDS ORDERED: MORPHINE SULFATE 4 MG/ML SYR/VIAL IV PRN (22:15)
[2018-02-04] VITALS (8 sets, daily range): BP systolic 133–158; BP diastolic 69–80
[2018-02-04] MEDS ORDERED: DEXTROSE (50%) 50ML SYRG IV PRN (01:15)
[2018-02-04] MEDS ORDERED: ACETAMINOPHEN 500 MG TAB PO PRN (01:15)
[2018-02-04] MEDS: ALBUTEROL SULF 2.5 MG/0.5ML(0.5%) NEB SOLN NEB SCH ×4 (02:14→19:09)
[2018-02-04] MEDS: IPRATROPIUM BROM 0.5 MG/2.5ML INH SOL NEB SCH ×4 (02:14→19:09)
[2018-02-04] MEDS: HYDROcodone-ACET 5/325MG TAB PO PRN ×4 (02:46→22:49)
[2018-02-04 05:41] LABS: Eosinophils # (auto) 0.3 uL; Hemoglobin 8.4 g/dL (13.5-17.5); Lymphocytes # (auto) 0.8 uL; Mean Corpuscular Volume 92.9 fL (80.0-100.0); Monocytes # (auto) 0.5 uL; Neutrophils # (auto) 2.6 uL; Nucleated Red Blood Cells % 0.2 %; White Blood Cell 4.2 10^3/uL (4.4-10.8)
[2018-02-04 05:42] LABS: Basophils # (auto) 0 uL; Basophils % (auto) 1.2 % (0.0-2.0); Eosinophils % (auto) 6.3 % (0.0-7.0); Hematocrit 26.5 % (41.0-53.0); Lymphocytes % (auto) 18.6 % (10.0-50.0); Mean Corpuscular Hemoglobin 29.4 pg (28.0-32.0); Mean Corpuscular Hgb Conc. 31.7 g/dL (32.0-36.0); Monocytes % (auto) 11.6 % (0.0-12.0); Neutrophils % (auto) 62.3 % (37.0-80.0); Platelet Count (auto) 79 10^3/uL (140-450); Red Blood Cells 2.85 10^6/uL (4.5-5.90); Red Cell Distribution Width 18.2 % (11.8-14.3)
[2018-02-04 06:09] LABS: BUN/Creatinine Ratio 5.9; Calcium 6.1 mg/dL (8.5-10.1); Potassium 5.1 mmol/L (3.5-5.1)
[2018-02-04] MEDS: ACCU-CHEK COMFORT CURVE STRIP VI SCH ×4 (06:24→22:16)
[2018-02-04] MEDS: InsuLIN REG 1unit/0.01ml Soln (100units/ml) SC SCH ×4 (06:24→22:00)
[2018-02-04] MEDS ORDERED: cloNIDine HCL 0.1 MG TAB PO SCH (10:00)
[2018-02-04] MEDS ORDERED: hydrALAZINE HCL 25 MG TAB PO SCH (10:00)
[2018-02-04] MEDS ORDERED: ENALAPRIL MALEATE 10 MG TAB PO SCH (10:00)
[2018-02-04] MEDS ORDERED: SODIUM CHL 0.9% 1000 ML BAG XX ONE (10:15)
[2018-02-04] MEDS ORDERED: EPOETIN ALFA 10,000 UNIT/1 ML VIAL IV ONE (10:15)
[2018-02-04] MEDS: amLODIPine BESYLATE 5 MG TAB PO SCH (19:21)
[2018-02-04] MEDS: AZITHROMYCIN 500MG/ 250ML 250 ML IV SCH (21:47)
[2018-02-04] MEDS: cefTRIAXone 1GM/10ml IVPUSH 10 ML IV SCH (22:00)
[2018-02-04] MEDS: INSULIN LANTUS (GLARGINE) 1 /0.01ml (100units/ml) SC SCH (22:00)
[2018-02-04] MEDS: CLOTRIMAZOLE W/ BETAMETH TOPICAL CR 15 GM TUBE TOP SCH (22:16)
[2018-02-05] MEDS: IPRATROPIUM BROM 0.5 MG/2.5ML INH SOL NEB SCH ×5 (00:47→20:29)
[2018-02-05] MEDS: ALBUTEROL SULF 2.5 MG/0.5ML(0.5%) NEB SOLN NEB SCH ×5 (00:47→20:29)
[2018-02-05] MEDS ORDERED: AZITHROMYCIN 250 MG TAB PO ONE (02:30)
[2018-02-05] MEDS: AZITHROMYCIN 500MG/ 250ML 250 ML IV SCH (03:05)
[2018-02-05] MEDS: HYDROcodone-ACET 5/325MG TAB PO PRN ×3 (03:18→21:43)
[2018-02-05] MEDS: InsuLIN REG 1unit/0.01ml Soln (100units/ml) SC SCH ×4 (05:24→21:44)
[2018-02-05 05:57] VITALS: BP 160/78
[2018-02-05 06:37] LABS: Basophils # (auto) 0 uL; Basophils % (auto) 0.6 % (0.0-2.0); Eosinophils # (auto) 0.2 uL; Eosinophils % (auto) 5.7 % (0.0-7.0); Hematocrit 28.1 % (41.0-53.0); Hemoglobin 8.9 g/dL (13.5-17.5); Lymphocytes # (auto) 0.7 uL; Lymphocytes % (auto) 17.1 % (10.0-50.0); Mean Corpuscular Hemoglobin 29.6 pg (28.0-32.0); Mean Corpuscular Hgb Conc. 31.7 g/dL (32.0-36.0); Mean Corpuscular Volume 93.4 fL (80.0-100.0); Monocytes # (auto) 0.4 uL; Monocytes % (auto) 10.7 % (0.0-12.0); Neutrophils # (auto) 2.7 uL; Neutrophils % (auto) 65.9 % (37.0-80.0); Nucleated Red Blood Cells % 0.1 %; Platelet Count (auto) 67 10^3/uL (140-450); Red Blood Cells 3.01 10^6/uL (4.5-5.90); Red Cell Distribution Width 18.4 % (11.8-14.3); White Blood Cell 4.2 10^3/uL (4.4-10.8)
[2018-02-05] MEDS: ACCU-CHEK COMFORT CURVE STRIP VI SCH ×4 (06:37→21:43)
[2018-02-05 06:55] LABS: Albumin 3.4 g/dL (3.4-5.0); BUN/Creatinine Ratio 5.4; Bilirubin, Total 0.6 mg/dL (0.2-1.0); Calcium 6.3 mg/dL (8.5-10.1); Potassium 5.2 mmol/L (3.5-5.1)
[2018-02-05] MEDS: MORPHINE SULFATE 4 MG/ML SYR/VIAL IV PRN ×3 (08:12→18:27)
[2018-02-05 09:00] VITALS: BP 141/77
[2018-02-05] MEDS: ENALAPRIL MALEATE 10 MG TAB PO SCH (10:04)
[2018-02-05] MEDS: CLOTRIMAZOLE W/ BETAMETH TOPICAL CR 15 GM TUBE TOP SCH ×2 (10:05→21:43)
[2018-02-05 11:44] LABS: Alcohol, Urine < 3.0 mg/dL (0-5); Amphetamine Screen, Urine NEGATIVE (NEGATIVE); Barbiturate Scree,Urine NEGATIVE (NEGATIVE); Benzodiazephine Screen, Urine POSITIVE (NEGATIVE); Cannabinoid Screen, Urine POSITIVE (NEGATIVE); Cocaine Screen, Urine NEGATIVE (NEGATIVE); Opiate Scree,Urine NEGATIVE (NEGATIVE); Phencyclidine Screen, Urine NEGATIVE (NEGATIVE)
[2018-02-05] MEDS ORDERED: AZITHROMYCIN 500MG/ 250ML 250 ML IV ONE (12:45)
[2018-02-05 13:00] VITALS: BP 153/78
[2018-02-05 16:14] VITALS: BP 134/81
[2018-02-05] MEDS: amLODIPine BESYLATE 5 MG TAB PO SCH (18:24)
[2018-02-05] MEDS: cefTRIAXone 1GM/10ml IVPUSH 10 ML IV SCH (21:43)
[2018-02-05] MEDS: INSULIN LANTUS (GLARGINE) 1 /0.01ml (100units/ml) SC SCH (21:44)
[2018-02-05 22:00] VITALS: BP 139/75
[2018-02-06] MEDS: IPRATROPIUM BROM 0.5 MG/2.5ML INH SOL NEB SCH ×5 (00:22→23:24)
[2018-02-06] MEDS: ALBUTEROL SULF 2.5 MG/0.5ML(0.5%) NEB SOLN NEB SCH ×5 (00:22→23:24)
[2018-02-06 05:30] VITALS: BP 148/80
[2018-02-06] MEDS: ACCU-CHEK COMFORT CURVE STRIP VI SCH ×4 (06:00→22:00)
[2018-02-06] MEDS: InsuLIN REG 1unit/0.01ml Soln (100units/ml) SC SCH ×4 (07:00→22:00)
[2018-02-06] MEDS: MORPHINE SULFATE 4 MG/ML SYR/VIAL IV PRN ×3 (07:34→18:03)
[2018-02-06] MEDS: HYDROcodone-ACET 5/325MG TAB PO PRN ×3 (07:34→17:47)
[2018-02-06 08:23] VITALS: BP 147/81
[2018-02-06] MEDS: AZITHROMYCIN 250 MG TAB PO SCH (10:00)
[2018-02-06] MEDS: CARISOPRODOL 350 MG TAB PO PRN ×2 (10:44→17:47)
[2018-02-06] MEDS: AZITHROMYCIN 500MG/ 250ML 250 ML IV SCH (11:14)
[2018-02-06] MEDS: ENALAPRIL MALEATE 10 MG TAB PO SCH (11:15)
[2018-02-06] MEDS: CLOTRIMAZOLE W/ BETAMETH TOPICAL CR 15 GM TUBE TOP SCH (11:18)
[2018-02-06 12:21] VITALS: BP 161/87
[2018-02-06] MEDS: THROAT LOZENGES(CEPASTAT) MT PRN (12:29)
[2018-02-06] MEDS ORDERED: EPOETIN ALFA 10,000 UNIT/1 ML VIAL IV ONE (13:15)
[2018-02-06] MEDS: DOXYCYCLINE HYC 100MG/250ML 250 ML IV SCH (13:29)
[2018-02-06 16:24] VITALS: BP 152/80
[2018-02-06] MEDS: amLODIPine BESYLATE 5 MG TAB PO SCH (18:29)
[2018-02-06 22:00] VITALS: BP 162/82
[2018-02-06] MEDS: INSULIN LANTUS (GLARGINE) 1 /0.01ml (100units/ml) SC SCH (22:00)
[2018-02-07] MEDS: DOXYCYCLINE HYC 100MG/250ML 250 ML IV SCH ×3 (00:08→21:33)
[2018-02-07] MEDS: cefTRIAXone 1GM/10ml IVPUSH 10 ML IV SCH (00:08)
[2018-02-07] MEDS: CLOTRIMAZOLE W/ BETAMETH TOPICAL CR 15 GM TUBE TOP SCH ×3 (00:09→21:35)
[2018-02-07] MEDS: HYDROcodone-ACET 5/325MG TAB PO PRN ×4 (00:23→22:59)
[2018-02-07] MEDS: MORPHINE SULFATE 4 MG/ML SYR/VIAL IV PRN ×3 (02:10→21:04)
[2018-02-07 05:00] VITALS: BP 166/82
[2018-02-07] MEDS: IPRATROPIUM BROM 0.5 MG/2.5ML INH SOL NEB SCH ×3 (05:00→17:32)
[2018-02-07] MEDS: ALBUTEROL SULF 2.5 MG/0.5ML(0.5%) NEB SOLN NEB SCH ×3 (05:00→17:32)
[2018-02-07] MEDS: ACCU-CHEK COMFORT CURVE STRIP VI SCH ×4 (06:23→22:58)
[2018-02-07] MEDS: InsuLIN REG 1unit/0.01ml Soln (100units/ml) SC SCH ×4 (06:35→21:34)
[2018-02-07 06:37] LABS: Basophils # (auto) 0 uL; Eosinophils # (auto) 0.2 uL; Hemoglobin 8.5 g/dL (13.5-17.5)
[2018-02-07 06:38] LABS: Albumin 3.3 g/dL (3.4-5.0); BUN/Creatinine Ratio 5.3; Bilirubin, Total 0.6 mg/dL (0.2-1.0); Calcium 6.3 mg/dL (8.5-10.1); Total Protein 7.5 g/dL (6.4-8.2)
[2018-02-07 06:40] LABS: Basophils % (auto) 1.2 % (0.0-2.0); Eosinophils % (auto) 5.6 % (0.0-7.0); Hematocrit 27.6 % (41.0-53.0); Lymphocytes # (auto) 0.5 uL; Lymphocytes % (auto) 16.7 % (10.0-50.0); Mean Corpuscular Hemoglobin 29.2 pg (28.0-32.0); Mean Corpuscular Volume 94.3 fL (80.0-100.0); Monocytes # (auto) 0.3 uL; Monocytes % (auto) 10.6 % (0.0-12.0); Neutrophils # (auto) 2.2 uL; Neutrophils % (auto) 65.9 % (37.0-80.0); Nucleated Red Blood Cells % 0.2 %; Platelet Count (auto) 53 10^3/uL (140-450); Red Blood Cells 2.93 10^6/uL (4.5-5.90); Red Cell Distribution Width 18.5 % (11.8-14.3); White Blood Cell 3.3 10^3/uL (4.4-10.8)
[2018-02-07 06:42] LABS: Potassium 5.6 mmol/L (3.5-5.1)
[2018-02-07] MEDS ORDERED: SODIUM POLYSTYRENE SULF 15GM/60ML SUSP PO ONE (07:00)
[2018-02-07] MEDS ORDERED: DEXTROSE (50%) 50ML SYRG IV ONE (07:00)
[2018-02-07] MEDS ORDERED: InsuLIN REG 1unit/0.01ml Soln (100units/ml) IV ONE (07:00)
[2018-02-07 09:00] VITALS: BP 173/86
[2018-02-07] MEDS ORDERED: SODIUM CHL 0.9% 1000 ML BAG XX ONE (09:00)
[2018-02-07 09:19] VITALS: BP 166/82
[2018-02-07] MEDS ORDERED: SODIUM POLYSTYRENE SULF 15GM/60ML SUSP PR ONE (09:45)
[2018-02-07] MEDS ORDERED: PIPERACILLIN-TAZOB 3.375GM 100 ML IV ONE (09:45)
[2018-02-07] MEDS: AZITHROMYCIN 250 MG TAB PO SCH (10:00)
[2018-02-07] MEDS ORDERED: PIPERACILLIN-TAZOB 2.25GM 50 ML IV SCH (10:15)
[2018-02-07 13:00] VITALS: BP 159/85
[2018-02-07 17:00] VITALS: BP 153/86
[2018-02-07] MEDS: amLODIPine BESYLATE 5 MG TAB PO SCH (18:28)
[2018-02-07] MEDS: PIPERACILLIN-TAZOB 2.25GM 50 ML IV SCH (21:33)
[2018-02-07] MEDS: INSULIN LANTUS (GLARGINE) 1 /0.01ml (100units/ml) SC SCH ×2 (21:34→22:00)
[2018-02-07 22:00] VITALS: BP 154/87
[2018-02-08] MEDS: ALBUTEROL SULF 2.5 MG/0.5ML(0.5%) NEB SOLN NEB SCH ×3 (00:14→18:37)
[2018-02-08] MEDS: IPRATROPIUM BROM 0.5 MG/2.5ML INH SOL NEB SCH ×3 (00:14→18:38)
[2018-02-08] MEDS: MORPHINE SULFATE 4 MG/ML SYR/VIAL IV PRN ×2 (02:35→13:48)
[2018-02-08 05:00] VITALS: BP 154/81
[2018-02-08] MEDS: ACCU-CHEK COMFORT CURVE STRIP VI SCH ×4 (06:23→21:37)
[2018-02-08] MEDS: InsuLIN REG 1unit/0.01ml Soln (100units/ml) SC SCH ×4 (06:23→21:32)
[2018-02-08] MEDS ORDERED: EPOETIN ALFA 10,000 UNIT/1 ML VIAL IV ONE (08:00)
[2018-02-08] MEDS ORDERED: SODIUM CHL 0.9% 1000 ML BAG XX ONE (08:00)
[2018-02-08] MEDS ORDERED: CALCIUM CARB 500 MG CHEW TAB PO PRN (08:15)
[2018-02-08] MEDS: CALCIUM CARB 500 MG CHEW TAB PO PRN (08:34)
[2018-02-08 09:00] VITALS: BP 157/84
[2018-02-08] MEDS: LACTULOSE 20Gm/30ML SOLN PO PRN (09:21)
[2018-02-08] MEDS ORDERED: PIPERACILLIN-TAZOB 0.75 GM in D5W 5% 50 ML IV PRN (09:45)
[2018-02-08] MEDS: HYDROcodone-ACET 5/325MG TAB PO PRN ×2 (11:48→20:33)
[2018-02-08 12:09] LABS: Basophils # (auto) 0 uL; Eosinophils # (auto) 0.2 uL; Eosinophils % (auto) 6.7 % (0.0-7.0); Lymphocytes # (auto) 0.5 uL; Monocytes # (auto) 0.2 uL; Neutrophils # (auto) 1.7 uL; White Blood Cell 2.6 10^3/uL (4.4-10.8)
[2018-02-08 12:11] LABS: Basophils % (auto) 0.2 % (0.0-2.0); Hematocrit 25.2 % (41.0-53.0); Hemoglobin 7.9 g/dL (13.5-17.5); Lymphocytes % (auto) 19.2 % (10.0-50.0); Mean Corpuscular Hemoglobin 28.7 pg (28.0-32.0); Mean Corpuscular Hgb Conc. 31.4 g/dL (32.0-36.0); Mean Corpuscular Volume 91.3 fL (80.0-100.0); Monocytes % (auto) 8.9 % (0.0-12.0); Platelet Count (auto) 50 10^3/uL (140-450); Red Blood Cells 2.76 10^6/uL (4.5-5.90); Red Cell Distribution Width 17.9 % (11.8-14.3)
[2018-02-08 12:26] LABS: BUN/Creatinine Ratio 5.9; Calcium 6.4 mg/dL (8.5-10.1); Potassium 5.2 mmol/L (3.5-5.1)
[2018-02-08 13:00] VITALS: BP 161/79
[2018-02-08] MEDS: ALBUTEROL SULF 2.5 MG/0.5ML(0.5%) NEB SOLN NEB PRN (14:01)
[2018-02-08] MEDS: PIPERACILLIN-TAZOB 2.25GM 50 ML IV SCH ×2 (15:52→21:37)
[2018-02-08] MEDS: DOXYCYCLINE HYC 100MG/250ML 250 ML IV SCH ×3 (15:52→21:54)
[2018-02-08] MEDS: CLOTRIMAZOLE W/ BETAMETH TOPICAL CR 15 GM TUBE TOP SCH ×2 (15:53→21:37)
[2018-02-08] MEDS: THROAT LOZENGES(CEPASTAT) MT PRN (16:10)
[2018-02-08 17:00] VITALS: BP 169/78
[2018-02-08] MEDS: amLODIPine BESYLATE 5 MG TAB PO SCH (18:11)
[2018-02-08] MEDS: INSULIN LANTUS (GLARGINE) 1 /0.01ml (100units/ml) SC SCH (21:32)
[2018-02-08] MEDS: SENNA 8.6 MG TAB PO SCH (21:37)
[2018-02-08 22:00] VITALS: BP 157/90
[2018-02-09] MEDS: ALBUTEROL SULF 2.5 MG/0.5ML(0.5%) NEB SOLN NEB SCH ×4 (00:01→18:15)
[2018-02-09] MEDS ORDERED: TEMAZEPAM 15 MG CAP PO ONE (00:30)
[2018-02-09] MEDS: HYDROcodone-ACET 5/325MG TAB PO PRN ×4 (01:33→17:16)
[2018-02-09] MEDS: IPRATROPIUM BROM 0.5 MG/2.5ML INH SOL NEB SCH ×4 (05:58→18:15)
[2018-02-09 06:00] VITALS: BP 190/88
[2018-02-09] MEDS: InsuLIN REG 1unit/0.01ml Soln (100units/ml) SC SCH ×4 (06:21→22:00)
[2018-02-09] MEDS: ACCU-CHEK COMFORT CURVE STRIP VI SCH ×4 (06:22→22:14)
[2018-02-09 06:56] LABS: Basophils # (auto) 0 uL; Eosinophils # (auto) 0.2 uL; Eosinophils % (auto) 5.7 % (0.0-7.0); Hemoglobin 8.7 g/dL (13.5-17.5); Lymphocytes # (auto) 0.7 uL; Mean Corpuscular Hemoglobin 29.2 pg (28.0-32.0); Monocytes # (auto) 0.4 uL
[2018-02-09 06:59] LABS: Lymphocytes % (auto) 23.8 % (10.0-50.0); Mean Corpuscular Hgb Conc. 32.2 g/dL (32.0-36.0); Mean Corpuscular Volume 90.6 fL (80.0-100.0); Monocytes % (auto) 12.1 % (0.0-12.0); Neutrophils # (auto) 1.7 uL; Neutrophils % (auto) 57.4 % (37.0-80.0); Nucleated Red Blood Cells % 0.6 %; Platelet Count (auto) 58 10^3/uL (140-450); Red Blood Cells 2.98 10^6/uL (4.5-5.90); Red Cell Distribution Width 17.6 % (11.8-14.3)
[2018-02-09 07:08] LABS: BUN/Creatinine Ratio 6.3; Calcium 7.1 mg/dL (8.5-10.1)
[2018-02-09 07:15] LABS: Potassium 5.6 mmol/L (3.5-5.1)
[2018-02-09 08:40] VITALS: BP 148/74
[2018-02-09] MEDS: CLOTRIMAZOLE W/ BETAMETH TOPICAL CR 15 GM TUBE TOP SCH ×2 (10:00→22:19)
[2018-02-09] MEDS: DOXYCYCLINE HYC 100MG/250ML 250 ML IV SCH (10:00)
[2018-02-09] MEDS: PIPERACILLIN-TAZOB 2.25GM 50 ML IV SCH (10:13)
[2018-02-09] MEDS ORDERED: DEXTROSE (50%) 50ML SYRG IV ONE (11:30)
[2018-02-09] MEDS ORDERED: ALBUTEROL SULF 2.5 MG/0.5ML(0.5%) NEB SOLN NEB ONE (11:30)
[2018-02-09] MEDS ORDERED: InsuLIN REG 1unit/0.01ml Soln (100units/ml) IV ONE (11:30)
[2018-02-09 12:40] VITALS: BP 159/76
[2018-02-09] MEDS: AMOXICILLIN/CLAVUL 875 MG TAB PO SCH ×2 (12:45→22:09)
[2018-02-09] MEDS: MORPHINE SULFATE 4 MG/ML SYR/VIAL IV PRN ×2 (15:13→20:49)
[2018-02-09 16:25] VITALS: BP 163/81
[2018-02-09] MEDS: amLODIPine BESYLATE 5 MG TAB PO SCH (17:16)
[2018-02-09] MEDS: ONDANSETRON HCL 4 MG/2 ML VIAL IV PRN ×2 (17:23→23:19)
[2018-02-09 21:30] VITALS: BP 155/83
[2018-02-09] MEDS: INSULIN LANTUS (GLARGINE) 1 /0.01ml (100units/ml) SC SCH (22:00)
[2018-02-09] MEDS: DOXYCYCLINE 100 MG TAB/CAP PO SCH (22:10)
[2018-02-09] MEDS: SENNA 8.6 MG TAB PO SCH (22:10)
[2018-02-09] MEDS: ALBUTEROL SULF 2.5 MG/0.5ML(0.5%) NEB SOLN NEB PRN (22:13)
[2018-02-09] MEDS: CALCIUM CARB 500 MG CHEW TAB PO PRN (23:50)
[2018-02-10] MEDS: ALBUTEROL SULF 2.5 MG/0.5ML(0.5%) NEB SOLN NEB SCH ×4 (01:46→20:06)
[2018-02-10] MEDS: IPRATROPIUM BROM 0.5 MG/2.5ML INH SOL NEB SCH ×4 (01:46→20:06)
[2018-02-10 05:00] VITALS: BP 149/76
[2018-02-10] MEDS: ACCU-CHEK COMFORT CURVE STRIP VI SCH ×4 (06:22→21:55)
[2018-02-10] MEDS: InsuLIN REG 1unit/0.01ml Soln (100units/ml) SC SCH ×4 (06:22→21:55)
[2018-02-10] MEDS ORDERED: EPOETIN ALFA 10,000 UNIT/1 ML VIAL IV ONE (08:00)
[2018-02-10] MEDS ORDERED: SODIUM CHL 0.9% 1000 ML BAG XX ONE (08:00)
[2018-02-10 08:17] VITALS: BP 139/71
[2018-02-10 09:10] VITALS: BP 139/71
[2018-02-10 10:00] LABS: Basophils # (auto) 0 uL; Eosinophils # (auto) 0.1 uL; Lymphocytes # (auto) 0.5 uL; Monocytes # (auto) 0.2 uL; Neutrophils # (auto) 1.7 uL; Platelet Count (auto) 40 10^3/uL (140-450); Red Cell Distribution Width 17.2 % (11.8-14.3); White Blood Cell 2.5 10^3/uL (4.4-10.8)
[2018-02-10] MEDS: CLOTRIMAZOLE W/ BETAMETH TOPICAL CR 15 GM TUBE TOP SCH ×2 (10:00→21:54)
[2018-02-10 10:02] LABS: Eosinophils % (auto) 4.4 % (0.0-7.0); Hematocrit 25.2 % (41.0-53.0); Lymphocytes % (auto) 19.4 % (10.0-50.0); Mean Corpuscular Hemoglobin 28.7 pg (28.0-32.0); Mean Corpuscular Hgb Conc. 31.7 g/dL (32.0-36.0); Mean Corpuscular Volume 90.7 fL (80.0-100.0); Monocytes % (auto) 8.4 % (0.0-12.0); Neutrophils % (auto) 66.8 % (37.0-80.0); Red Blood Cells 2.78 10^6/uL (4.5-5.90)
[2018-02-10 12:06] VITALS: BP 167/80
[2018-02-10] MEDS: DOXYCYCLINE 100 MG TAB/CAP PO SCH ×2 (13:02→21:53)
[2018-02-10] MEDS: AMOXICILLIN/CLAVUL 875 MG TAB PO SCH ×2 (13:02→21:53)
[2018-02-10] MEDS: HYDROcodone-ACET 5/325MG TAB PO PRN ×2 (13:09→17:52)
[2018-02-10] MEDS ORDERED: hydrALAZINE HCL 25 MG TAB PO ONE (13:30)
[2018-02-10] MEDS: LACTULOSE 20Gm/30ML SOLN PO PRN (14:25)
[2018-02-10 17:05] VITALS: BP 162/85
[2018-02-10] MEDS: amLODIPine BESYLATE 5 MG TAB PO SCH (17:52)
[2018-02-10 19:23] LABS: BUN/Creatinine Ratio 5.1; Potassium 4.6 mmol/L (3.5-5.1)
[2018-02-10 20:18] VITALS: BP 157/82
[2018-02-10] MEDS: SENNA 8.6 MG TAB PO SCH (21:53)
[2018-02-10] MEDS: INSULIN LANTUS (GLARGINE) 1 /0.01ml (100units/ml) SC SCH (21:54)
[2018-02-11] MEDS: ALBUTEROL SULF 2.5 MG/0.5ML(0.5%) NEB SOLN NEB SCH ×2 (00:25→06:18)
[2018-02-11] MEDS: IPRATROPIUM BROM 0.5 MG/2.5ML INH SOL NEB SCH ×2 (00:25→06:17)
[2018-02-11] MEDS ORDERED: TEMAZEPAM 15 MG CAP PO PRN (01:15)
[2018-02-11 05:04] VITALS: BP 148/85
[2018-02-11] MEDS: HYDROcodone-ACET 5/325MG TAB PO PRN ×2 (05:28→09:37)
[2018-02-11] MEDS: ACCU-CHEK COMFORT CURVE STRIP VI SCH (06:15)
[2018-02-11] MEDS: InsuLIN REG 1unit/0.01ml Soln (100units/ml) SC SCH (06:19)
[2018-02-11] MEDS: CARISOPRODOL 350 MG TAB PO PRN ×2 (07:38→10:40)
[2018-02-11] MEDS: MORPHINE SULFATE 4 MG/ML SYR/VIAL IV PRN ×2 (07:38→10:39)
[2018-02-11 07:49] LABS: Basophils # (auto) 0 uL; Basophils % (auto) 1.5 % (0.0-2.0); Eosinophils # (auto) 0.2 uL; Hematocrit 27.2 % (41.0-53.0); Hemoglobin 8.5 g/dL (13.5-17.5); Lymphocytes # (auto) 0.6 uL; Lymphocytes % (auto) 19.3 % (10.0-50.0); Mean Corpuscular Hemoglobin 28.6 pg (28.0-32.0); Mean Corpuscular Hgb Conc. 31.1 g/dL (32.0-36.0); Mean Corpuscular Volume 91.8 fL (80.0-100.0); Monocytes # (auto) 0.5 uL; Monocytes % (auto) 15.4 % (0.0-12.0); Neutrophils # (auto) 1.7 uL; Neutrophils % (auto) 57.8 % (37.0-80.0); Platelet Count (auto) 65 10^3/uL (140-450); Red Blood Cells 2.96 10^6/uL (4.5-5.90); Red Cell Distribution Width 17.4 % (11.8-14.3); White Blood Cell 2.9 10^3/uL (4.4-10.8)
[2018-02-11 08:31] VITALS: BP 156/69
[2018-02-11] MEDS: DOXYCYCLINE 100 MG TAB/CAP PO SCH (09:57)
[2018-02-11] MEDS: AMOXICILLIN/CLAVUL 875 MG TAB PO SCH (09:57)
[2018-02-11] MEDS: ENALAPRIL MALEATE 10 MG TAB PO SCH (09:58)
[2018-02-11] MEDS ORDERED: hydrALAZINE HCL 25 MG TAB PO SCH (10:00)
[2018-02-11 10:09] LABS: BUN/Creatinine Ratio 5.4; Calcium 6.7 mg/dL (8.5-10.1)
[2018-02-11 12:05] LABS: Potassium 5.4 mmol/L (3.5-5.1)
== END 2018-02-11 10:10 | disposition left against medical advice (07) | DRG 720 ==
LOC: ER 14:59 → TELE 15:00 → TELE-EAST 23:49
PROVIDERS: ADMIT Nurse Practitioner Family; ATTEND Internal Medicine
PROC: 5A1D70Z Performance of Urinary Filtration, Intermittent, Less than 6 Hours Per Day (ICD-10-PCS; principal; 2018-02-04)
PROC: 5A1D70Z Performance of Urinary Filtration, Intermittent, Less than 6 Hours Per Day (ICD-10-PCS; 2018-02-06)
PROC: 5A1D70Z Performance of Urinary Filtration, Intermittent, Less than 6 Hours Per Day (ICD-10-PCS; 2018-02-08)
PROC: 5A1D70Z Performance of Urinary Filtration, Intermittent, Less than 6 Hours Per Day (ICD-10-PCS; 2018-02-10)
DX: A41.9 Sepsis, unspecified organism (principal); I50.43 Acute on chronic combined systolic (congestive) and diastolic (congestive) heart failure; N18.6 End stage renal disease; J18.9 Pneumonia, unspecified organism; D69.6 Thrombocytopenia, unspecified; E11.22 Type 2 diabetes mellitus with diabetic chronic kidney disease; J44.0 Chronic obstructive pulmonary disease with (acute) lower respiratory infection; I13.2 Hypertensive heart and chronic kidney disease with heart failure and with stage 5 chronic kidney disease, or end stage renal disease; D63.1 Anemia in chronic kidney disease; E87.5 Hyperkalemia; F17.200 Nicotine dependence, unspecified, uncomplicated; G89.29 Other chronic pain; K74.60 Unspecified cirrhosis of liver; M79.604 Pain in right leg; K80.20 Calculus of gallbladder without cholecystitis without obstruction; M79.605 Pain in left leg; M79.89 Other specified soft tissue disorders; Z99.2 Dependence on renal dialysis; Z79.4 Long term (current) use of insulin; Z82.49 Family history of ischemic heart disease and other diseases of the circulatory system; Z83.3 Family history of diabetes mellitus; Z91.19 Patient's noncompliance with other medical treatment and regimen; R06.03 Acute respiratory distress
CPT/HCPCS: 36415; 71045; 71250; 80048; 80053; 80307; 82962; 83605; 83735; 83880; 84132; 84484; 85025; 87040; 87081; 90935; 94640; 94761; 96374; J0885; J1642; J1815; J2405; J2543; J3490; J7060

== ENCOUNTER 2018-02-19 18:41 | Emergency (ER) | payer MEDICAID ==
[~2018-02-19] VITALS: Ht 162.6 cm; Wt 79.4 kg
[~2018-02-19 18:41] MED LIST changes: -AMOX500C2 PO; -AZIT500T4 PO; -DEXT1SYP6 PO
[2018-02-19 22:05] LABS: Eosinophils # (auto) 0.2 uL; Hemoglobin 8.9 g/dL (13.5-17.5); Mean Corpuscular Hemoglobin 28.9 pg (28.0-32.0); Monocytes # (auto) 0.5 uL; Neutrophils # (auto) 2.8 uL; Nucleated Red Blood Cells % 0.2 %; Red Blood Cells 3.07 10^6/uL (4.5-5.90)
[2018-02-19 22:07] LABS: Basophils # (auto) 0 uL; Eosinophils % (auto) 4.2 % (0.0-7.0); Lymphocytes # (auto) 0.8 uL; Mean Corpuscular Hgb Conc. 30.7 g/dL (32.0-36.0); Mean Corpuscular Volume 94.4 fL (80.0-100.0); Monocytes % (auto) 12.1 % (0.0-12.0); Neutrophils % (auto) 63.7 % (37.0-80.0); Platelet Count (auto) 83 10^3/uL (140-450); White Blood Cell 4.4 10^3/uL (4.4-10.8)
[2018-02-19 22:27] LABS: Albumin 3.3 g/dL (3.4-5.0); BUN/Creatinine Ratio 5.7; Bilirubin, Total 0.4 mg/dL (0.2-1.0); Calcium 7.2 mg/dL (8.5-10.1); Total Protein 7.6 g/dL (6.4-8.2)
[2018-02-19 22:33] LABS: Potassium 5.6 mmol/L (3.5-5.1)
[2018-02-20 01:45] VITALS: BP 146/92
== END 2018-02-20 01:45 | disposition home or self-care (01) ==
LOC: EDBD 18:41 → ER 18:44
DX: S06.0X1A Concussion with loss of consciousness of 30 minutes or less, initial encounter (principal); I13.2 Hypertensive heart and chronic kidney disease with heart failure and with stage 5 chronic kidney disease, or end stage renal disease; F17.210 Nicotine dependence, cigarettes, uncomplicated; I50.9 Heart failure, unspecified; J44.9 Chronic obstructive pulmonary disease, unspecified; E11.22 Type 2 diabetes mellitus with diabetic chronic kidney disease; N18.6 End stage renal disease; R53.1 Weakness; S00.93XA Contusion of unspecified part of head, initial encounter; X58.XXXA Exposure to other specified factors, initial encounter; Y93.89 Activity, other specified; Y92.89 Other specified places as the place of occurrence of the external cause; Y99.8 Other external cause status; Z79.899 Other long term (current) drug therapy
CPT/HCPCS: 36415; 70450; 72125; 80053; 84484; 85025; 93005

== ENCOUNTER 2018-03-05 23:35 | Emergency (ER) | payer MEDICAID ==
[~2018-03-05] VITALS: Ht 165.1 cm; Wt 90.7 kg
[2018-03-06 00:24] LABS: Basophils # (auto) 0 uL; Basophils % (auto) 1.1 % (0.0-2.0); Eosinophils # (auto) 0.2 uL; Eosinophils % (auto) 5.6 % (0.0-7.0); Hematocrit 30.1 % (41.0-53.0); Hemoglobin 9.3 g/dL (13.5-17.5); Lymphocytes # (auto) 0.6 uL; Lymphocytes % (auto) 15.9 % (10.0-50.0); Mean Corpuscular Hemoglobin 28.6 pg (28.0-32.0); Mean Corpuscular Volume 92.3 fL (80.0-100.0); Monocytes # (auto) 0.3 uL; Monocytes % (auto) 9.1 % (0.0-12.0); Neutrophils # (auto) 2.5 uL; Neutrophils % (auto) 68.3 % (37.0-80.0); Nucleated Red Blood Cells % 0.1 %; Platelet Count (auto) 75 10^3/uL (140-450); Red Blood Cells 3.27 10^6/uL (4.5-5.90); Red Cell Distribution Width 18.3 % (11.8-14.3); White Blood Cell 3.6 10^3/uL (4.4-10.8)
[2018-03-06 00:38] LABS: Albumin 3.5 g/dL (3.4-5.0); BUN/Creatinine Ratio 5.8; Calcium 6.9 mg/dL (8.5-10.1); Magnesium 2.7 mg/dL (1.6-2.6); Potassium 5.4 mmol/L (3.5-5.1)
[2018-03-06 00:43] LABS: Bilirubin, Total 0.5 mg/dL (0.2-1.0); Total Protein 8.1 g/dL (6.4-8.2)
[2018-03-06] MEDS ORDERED: IPRATROPIUM BROM 0.5 MG/2.5ML INH SOL NEB ONE (04:30)
[2018-03-06] MEDS ORDERED: ALBUTEROL SULF 2.5 MG/0.5ML(0.5%) NEB SOLN NEB ONE (04:30)
[2018-03-06 05:11] VITALS: BP 146/72
== END 2018-03-06 05:34 | disposition home or self-care (01) ==
LOC: ER 23:35
DX: E11.22 Type 2 diabetes mellitus with diabetic chronic kidney disease (principal); I13.2 Hypertensive heart and chronic kidney disease with heart failure and with stage 5 chronic kidney disease, or end stage renal disease; N18.6 End stage renal disease; F17.210 Nicotine dependence, cigarettes, uncomplicated; J44.9 Chronic obstructive pulmonary disease, unspecified; F14.10 Cocaine abuse, uncomplicated; Z99.2 Dependence on renal dialysis; Z79.4 Long term (current) use of insulin
CPT/HCPCS: 36415; 71045; 80053; 83735; 83880; 84484; 85025; 93005; 94640

== ENCOUNTER 2018-03-11 03:11 | Emergency (ER) | payer MEDICAID ==
[~2018-03-11] VITALS: Ht 157.5 cm; Wt 74.8 kg
[2018-03-11 03:16] VITALS: BP 167/80
[2018-03-11 04:22] LABS: Basophils # (auto) 0 uL; Lymphocytes # (auto) 0.7 uL; Mean Corpuscular Volume 90.5 fL (80.0-100.0); Monocytes # (auto) 0.4 uL; Monocytes % (auto) 11.4 % (0.0-12.0); Neutrophils # (auto) 2.2 uL; Platelet Count (auto) 57 10^3/uL (140-450)
[2018-03-11 04:24] LABS: Basophils % (auto) 0.8 % (0.0-2.0); Eosinophils # (auto) 0.2 uL; Eosinophils % (auto) 4.8 % (0.0-7.0); Hematocrit 29.5 % (41.0-53.0); Hemoglobin 9.3 g/dL (13.5-17.5); Mean Corpuscular Hemoglobin 28.6 pg (28.0-32.0); Mean Corpuscular Hgb Conc. 31.7 g/dL (32.0-36.0); Nucleated Red Blood Cells % 0.3 %; Red Blood Cells 3.26 10^6/uL (4.5-5.90); Red Cell Distribution Width 17.4 % (11.8-14.3); White Blood Cell 3.4 10^3/uL (4.4-10.8)
[2018-03-11 04:38] LABS: Albumin 3.4 g/dL (3.4-5.0); BUN/Creatinine Ratio 7.3; Calcium 6.3 mg/dL (8.5-10.1); Magnesium 2.4 mg/dL (1.6-2.6); Potassium 4.5 mmol/L (3.5-5.1)
[2018-03-11 04:43] LABS: Bilirubin, Total 0.5 mg/dL (0.2-1.0); Total Protein 7.6 g/dL (6.4-8.2)
== END 2018-03-11 07:00 | disposition left against medical advice (07) ==
LOC: EDBD 03:11 → ER 03:17
DX: R07.89 Other chest pain (principal); R06.02 Shortness of breath; Z53.21 Procedure and treatment not carried out due to patient leaving prior to being seen by health care provider
CPT/HCPCS: 36415; 71045; 80053; 83735; 83880; 84484; 85025; 93005

== ENCOUNTER 2018-03-23 18:58 | Emergency (ER) | payer MEDICAID ==
[~2018-03-23] VITALS: Ht 165.1 cm; Wt 77.1 kg
[2018-03-23 20:27] LABS: Basophils # (auto) 0 uL; Basophils % (auto) 0.6 % (0.0-2.0); Eosinophils # (auto) 0.1 uL; Lymphocytes # (auto) 0.5 uL; Monocytes # (auto) 0.4 uL
[2018-03-23 20:28] LABS: Eosinophils % (auto) 2.9 % (0.0-7.0); Hemoglobin 10.3 g/dL (13.5-17.5); Mean Corpuscular Hemoglobin 27.7 pg (28.0-32.0); Mean Corpuscular Hgb Conc. 31.2 g/dL (32.0-36.0); Mean Corpuscular Volume 88.9 fL (80.0-100.0); Monocytes % (auto) 9.2 % (0.0-12.0); Neutrophils # (auto) 3.7 uL; Neutrophils % (auto) 77.3 % (37.0-80.0); Nucleated Red Blood Cells % 0.1 %; Red Blood Cells 3.71 10^6/uL (4.5-5.90); Red Cell Distribution Width 18.1 % (11.8-14.3); White Blood Cell 4.8 10^3/uL (4.4-10.8)
[2018-03-23 20:33] LABS: Platelet Count (auto) 43 10^3/uL (140-450)
[2018-03-23 20:45] LABS: Albumin 3.7 g/dL (3.4-5.0); BUN/Creatinine Ratio 5.3; Bilirubin, Total 0.5 mg/dL (0.2-1.0); Calcium 6.5 mg/dL (8.5-10.1); Magnesium 2.4 mg/dL (1.6-2.6); Potassium 4.6 mmol/L (3.5-5.1); Total Protein 8.2 g/dL (6.4-8.2)
[2018-03-24 03:00] VITALS: BP 127/66
[2018-03-24] MEDS ORDERED: HYDROcodone-ACET 10/325MG TAB PO ONE (03:00)
== END 2018-03-24 03:34 | disposition home or self-care (01) ==
LOC: ER 18:58
DX: R06.02 Shortness of breath (principal); M54.5 Low back pain; G89.29 Other chronic pain; N18.6 End stage renal disease; J44.9 Chronic obstructive pulmonary disease, unspecified; I50.9 Heart failure, unspecified; I13.2 Hypertensive heart and chronic kidney disease with heart failure and with stage 5 chronic kidney disease, or end stage renal disease; F17.210 Nicotine dependence, cigarettes, uncomplicated
CPT/HCPCS: 36415; 71045; 80053; 83735; 83880; 84484; 85025; 93005

== ENCOUNTER 2018-04-01 12:32 | Emergency (ER) | payer MEDICAID ==
[~2018-04-01] VITALS: Ht 175.3 cm; Wt 68.0 kg
[2018-04-01 12:32] VITALS: BP 138/70
== END 2018-04-01 14:43 | disposition home or self-care (01) ==
LOC: EDBD 12:32 → ER 12:32
DX: E11.22 Type 2 diabetes mellitus with diabetic chronic kidney disease (principal); I13.2 Hypertensive heart and chronic kidney disease with heart failure and with stage 5 chronic kidney disease, or end stage renal disease; I50.84 End stage heart failure; N18.6 End stage renal disease; F17.210 Nicotine dependence, cigarettes, uncomplicated; Z99.2 Dependence on renal dialysis
CPT/HCPCS: 93005

== ENCOUNTER 2018-04-02 22:38 | Inpatient (IN) | payer MEDICAID ==
[~2018-04-02] VITALS: Ht 165.1 cm; Wt 92.6 kg
[2018-04-03 00:14] LABS: Basophils # (auto) 0 uL; Eosinophils # (auto) 0.1 uL; Hematocrit 27.8 % (41.0-53.0); Hemoglobin 8.6 g/dL (13.5-17.5); Lymphocytes # (auto) 0.6 uL; Lymphocytes % (auto) 17.7 % (10.0-50.0); Mean Corpuscular Hgb Conc. 30.9 g/dL (32.0-36.0); Neutrophils # (auto) 2.1 uL; Red Blood Cells 3.08 10^6/uL (4.5-5.90); White Blood Cell 3.2 10^3/uL (4.4-10.8)
[2018-04-03 00:17] LABS: Basophils % (auto) 0.8 % (0.0-2.0); Eosinophils % (auto) 3.9 % (0.0-7.0); Mean Corpuscular Hemoglobin 27.8 pg (28.0-32.0); Mean Corpuscular Volume 90.2 fL (80.0-100.0); Monocytes # (auto) 0.4 uL; Monocytes % (auto) 11.2 % (0.0-12.0); Neutrophils % (auto) 66.4 % (37.0-80.0); Nucleated Red Blood Cells % 0.4 %; Platelet Count (auto) 67 10^3/uL (140-450); Red Cell Distribution Width 17.6 % (11.8-14.3)
[2018-04-03 00:30] LABS: INR 1.08 (0.9-1.15); Partial Thromboplastin Time 31.9 sec (22.64-33.71); Prothrombin Time 11.8 sec (9.37-12.3)
[2018-04-03 00:50] LABS: Albumin 3.4 g/dL (3.4-5.0); BUN/Creatinine Ratio 5.2; Calcium 6.5 mg/dL (8.5-10.1); Magnesium 2.5 mg/dL (1.6-2.6)
[2018-04-03 00:55] LABS: Bilirubin, Total 0.5 mg/dL (0.2-1.0); Total Protein 8.1 g/dL (6.4-8.2)
[2018-04-03] MEDS ORDERED: NITROGLYCERIN 0.4 MG SL TAB SL PRN (08:45)
[2018-04-03] MEDS ORDERED: LORazepam 0.5 MG TAB PO PRN (08:45)
[2018-04-03] MEDS ORDERED: LACTULOSE 20Gm/30ML SOLN PO PRN (08:45)
[2018-04-03] MEDS ORDERED: ACETAMINOPHEN 500 MG TAB PO PRN (08:45)
[2018-04-03] MEDS ORDERED: MORPHINE SULFATE 4 MG/ML SYR/VIAL IV PRN ×2 (08:45)
[2018-04-03] MEDS ORDERED: PROMETHAZINE HCL 25 MG/ML 1ML IV PRN (08:45)
[2018-04-03] MEDS ORDERED: DEXTROSE (50%) 50ML SYRG IV PRN (08:45)
[2018-04-03] MEDS: INSULIN LANTUS (GLARGINE) 1 /0.01ml (100units/ml) SC SCH ×2 (10:00→22:00)
[2018-04-03] MEDS: NITROGLYCERIN 0.2MG/HR TOPICAL PATCH TD SCH (10:00)
[2018-04-03] MEDS: ENALAPRIL MALEATE 10 MG TAB PO SCH (10:00)
[2018-04-03 10:08] VITALS: BP 188/93
[2018-04-03] MEDS: FUROSEMIDE 40 MG/4 ML VIAL IV SCH ×2 (10:31→18:00)
[2018-04-03] MEDS: PANTOPRAZOLE 40 MG TAB PO SCH (10:32)
[2018-04-03] MEDS: ASPirin 81 mg TAB PO SCH (10:32)
[2018-04-03] MEDS: traMADol HCL 50 MG TAB PO SCH ×2 (10:32→22:55)
[2018-04-03] MEDS: CARVEDILOL 3.125 MG TAB PO SCH ×3 (10:33→22:55)
[2018-04-03] MEDS: amLODIPine BESYLATE 5 MG TAB PO SCH (10:34)
[2018-04-03] MEDS: hydrALAZINE HCL 25 MG TAB PO SCH (10:34)
[2018-04-03] MEDS: cloNIDine HCL 0.1 MG TAB PO SCH ×3 (10:35→22:54)
[2018-04-03] MEDS: InsuLIN REG 1unit/0.01ml Soln (100units/ml) SC SCH ×3 (10:39→22:00)
[2018-04-03] MEDS: ACCU-CHEK COMFORT CURVE STRIP VI SCH ×3 (10:39→22:00)
[2018-04-03 12:00] VITALS: BP 159/80
[2018-04-03] MEDS ORDERED: HEPARIN 1,000 UNITS/ml 1ML VIAL IV ONE (12:00)
[2018-04-03] MEDS ORDERED: EPOETIN ALFA 10,000 UNIT/1 ML VIAL IV ONE (12:00)
[2018-04-03] MEDS: SODIUM CHLOR 0.9% PF (SALINE LOCK) 10ML VIAL/SYR IV SCH ×2 (14:40→22:00)
[2018-04-03] MEDS: HYDROcodone-ACET 5/325MG TAB PO PRN (15:05)
[2018-04-03 16:39] VITALS: BP 105/59
[2018-04-03 22:00] VITALS: BP 129/70
[2018-04-04 05:00] VITALS: BP 108/63
[2018-04-04] MEDS: FUROSEMIDE 40 MG/4 ML VIAL IV SCH ×2 (06:00→18:00)
[2018-04-04] MEDS: InsuLIN REG 1unit/0.01ml Soln (100units/ml) SC SCH ×4 (06:29→21:42)
[2018-04-04] MEDS: SODIUM CHLOR 0.9% PF (SALINE LOCK) 10ML VIAL/SYR IV SCH ×3 (06:29→21:30)
[2018-04-04] MEDS: ACCU-CHEK COMFORT CURVE STRIP VI SCH ×4 (06:29→21:42)
[2018-04-04 09:18] VITALS: BP 134/73
[2018-04-04] MEDS: INSULIN LANTUS (GLARGINE) 1 /0.01ml (100units/ml) SC SCH ×2 (10:00→21:42)
[2018-04-04] MEDS: NITROGLYCERIN 0.2MG/HR TOPICAL PATCH TD SCH (10:00)
[2018-04-04] MEDS: traMADol HCL 50 MG TAB PO SCH ×2 (10:00→21:31)
[2018-04-04] MEDS: amLODIPine BESYLATE 5 MG TAB PO SCH (10:00)
[2018-04-04] MEDS: hydrALAZINE HCL 25 MG TAB PO SCH (10:00)
[2018-04-04] MEDS: cloNIDine HCL 0.1 MG TAB PO SCH ×2 (10:00→21:31)
[2018-04-04] MEDS: ENALAPRIL MALEATE 10 MG TAB PO SCH (10:00)
[2018-04-04] MEDS: PANTOPRAZOLE 40 MG TAB PO SCH (11:12)
[2018-04-04] MEDS: ASPirin 81 mg TAB PO SCH (11:13)
[2018-04-04] MEDS: CARVEDILOL 3.125 MG TAB PO SCH ×2 (11:15→21:31)
[2018-04-04] MEDS: HYDROcodone-ACET 5/325MG TAB PO PRN ×2 (11:49→20:52)
[2018-04-04 13:24] VITALS: BP 152/74
[2018-04-04] MEDS: ALBUTEROL SULF 2.5 MG/0.5ML(0.5%) NEB SOLN NEB SCH ×3 (14:23→22:49)
[2018-04-04 14:55] VITALS: BP 152/74
[2018-04-04 19:26] LABS: Hematocrit 29.6 % (41.0-53.0); Hemoglobin 9.3 g/dL (13.5-17.5); Mean Corpuscular Hemoglobin 27.7 pg (28.0-32.0); Mean Corpuscular Hgb Conc. 31.4 g/dL (32.0-36.0); Mean Corpuscular Volume 88.3 fL (80.0-100.0); Platelet Count (auto) 37 10^3/uL (140-450); Red Blood Cells 3.35 10^6/uL (4.5-5.90); Red Cell Distribution Width 17.4 % (11.8-14.3); White Blood Cell 3.9 10^3/uL (4.4-10.8)
[2018-04-04 19:29] LABS: Band Neutrophils % (manual) 0; Basophils % (manual) 0 (0.0-2.0); Blast Cells 0; Metamyelocytes % 0; Myelocytes % 0; Promyelocytes % 0; Reactive Lymphocytes 0
[2018-04-04 19:32] LABS: Albumin 3.4 g/dL (3.4-5.0); BUN/Creatinine Ratio 6.4; Bilirubin, Total 0.4 mg/dL (0.2-1.0); Calcium 6.4 mg/dL (8.5-10.1); Total Protein 7.6 g/dL (6.4-8.2)
[2018-04-04 19:41] LABS: Potassium 5.6 mmol/L (3.5-5.1)
[2018-04-04 20:57] LABS: Eosinophils % (manual) 6 (0-7); Lymphocytes % (manual) 19 (10.0-50.0); Monocytes % (manual) 10 (0-12)
[2018-04-04] MEDS ORDERED: SODIUM POLYSTYRENE SULF 15GM/60ML SUSP PO ONE (21:15)
[2018-04-04 22:00] VITALS: BP 142/72
[2018-04-05] MEDS: TEMAZEPAM 15 MG CAP PO PRN ×2 (01:28→21:57)
[2018-04-05] MEDS: ALBUTEROL SULF 2.5 MG/0.5ML(0.5%) NEB SOLN NEB SCH ×6 (02:28→22:14)
[2018-04-05 05:00] VITALS: BP 149/80
[2018-04-05] MEDS: FUROSEMIDE 40 MG/4 ML VIAL IV SCH ×2 (06:00→18:00)
[2018-04-05] MEDS: SODIUM CHLOR 0.9% PF (SALINE LOCK) 10ML VIAL/SYR IV SCH ×3 (06:12→21:55)
[2018-04-05] MEDS: InsuLIN REG 1unit/0.01ml Soln (100units/ml) SC SCH ×4 (06:46→21:57)
[2018-04-05] MEDS: ACCU-CHEK COMFORT CURVE STRIP VI SCH ×4 (06:47→21:57)
[2018-04-05 09:01] VITALS: BP 140/71
[2018-04-05] MEDS: PANTOPRAZOLE 40 MG TAB PO SCH (09:53)
[2018-04-05] MEDS: CARVEDILOL 3.125 MG TAB PO SCH ×2 (09:53→21:56)
[2018-04-05] MEDS: ASPirin 81 mg TAB PO SCH (09:53)
[2018-04-05] MEDS: cloNIDine HCL 0.1 MG TAB PO SCH ×2 (09:54→21:56)
[2018-04-05] MEDS: amLODIPine BESYLATE 5 MG TAB PO SCH (09:54)
[2018-04-05] MEDS: NITROGLYCERIN 0.2MG/HR TOPICAL PATCH TD SCH (09:54)
[2018-04-05] MEDS: traMADol HCL 50 MG TAB PO SCH ×2 (09:54→21:56)
[2018-04-05] MEDS: ENALAPRIL MALEATE 10 MG TAB PO SCH (09:54)
[2018-04-05] MEDS: hydrALAZINE HCL 25 MG TAB PO SCH (09:55)
[2018-04-05] MEDS: INSULIN LANTUS (GLARGINE) 1 /0.01ml (100units/ml) SC SCH ×2 (09:55→21:57)
[2018-04-05] MEDS ORDERED: SODIUM POLYSTYRENE SULF 15GM/60ML SUSP PO SCH (10:53)
[2018-04-05] MEDS ORDERED: EPOETIN ALFA 10,000 UNIT/1 ML VIAL IV ONE (11:00)
[2018-04-05] MEDS ORDERED: SODIUM CHL 0.9% 1000 ML BAG XX ONE (11:00)
[2018-04-05 13:18] VITALS: BP 153/80
[2018-04-05 16:52] VITALS: BP 137/68
[2018-04-05] MEDS: SODIUM POLYSTYRENE SULF 15GM/60ML SUSP PO ONE ×2 (18:22→18:30)
[2018-04-05 21:53] LABS: Albumin 3.2 g/dL (3.4-5.0); BUN/Creatinine Ratio 6.8; Bilirubin, Total 0.4 mg/dL (0.2-1.0); Phosphorus 8.6 mg/dL (2.5-4.90); Total Protein 7.3 g/dL (6.4-8.2)
[2018-04-05 22:00] VITALS: BP 148/73
[2018-04-05 22:00] LABS: Potassium 6.1 mmol/L (3.5-5.1)
[2018-04-06] MEDS: ALBUTEROL SULF 2.5 MG/0.5ML(0.5%) NEB SOLN NEB SCH ×4 (00:38→13:04)
[2018-04-06 05:00] VITALS: BP 130/67
[2018-04-06] MEDS: FUROSEMIDE 40 MG/4 ML VIAL IV SCH (05:37)
[2018-04-06] MEDS: SODIUM CHLOR 0.9% PF (SALINE LOCK) 10ML VIAL/SYR IV SCH ×2 (05:38→11:57)
[2018-04-06] MEDS: InsuLIN REG 1unit/0.01ml Soln (100units/ml) SC SCH ×2 (06:45→11:30)
[2018-04-06] MEDS: ACCU-CHEK COMFORT CURVE STRIP VI SCH ×2 (06:45→11:57)
[2018-04-06 09:02] VITALS: BP 149/76
[2018-04-06] MEDS: traMADol HCL 50 MG TAB PO SCH (10:00)
[2018-04-06] MEDS: INSULIN LANTUS (GLARGINE) 1 /0.01ml (100units/ml) SC SCH (10:00)
[2018-04-06] MEDS: CARVEDILOL 3.125 MG TAB PO SCH (10:00)
[2018-04-06] MEDS: PANTOPRAZOLE 40 MG TAB PO SCH (10:00)
[2018-04-06] MEDS: ASPirin 81 mg TAB PO SCH (10:00)
[2018-04-06] MEDS: NITROGLYCERIN 0.2MG/HR TOPICAL PATCH TD SCH (10:00)
[2018-04-06] MEDS: amLODIPine BESYLATE 5 MG TAB PO SCH (10:00)
[2018-04-06] MEDS: hydrALAZINE HCL 25 MG TAB PO SCH (10:00)
[2018-04-06] MEDS: cloNIDine HCL 0.1 MG TAB PO SCH (10:00)
[2018-04-06 11:01] VITALS: BP 130/67
[2018-04-06 12:45] VITALS: BP 146/74
[2018-04-06 14:40] VITALS: BP 167/82
== END 2018-04-06 14:45 | disposition home or self-care (01) | DRG 194 ==
LOC: ER 22:44 → TELE 22:45 → TELE-WESTW 04-03 10:09 → WEST WING 04-04 20:16
PROVIDERS: ADMIT Internal Medicine; ATTEND Internal Medicine
PROC: 5A1D70Z Performance of Urinary Filtration, Intermittent, Less than 6 Hours Per Day (ICD-10-PCS; principal; 2018-04-02)
DX: I13.2 Hypertensive heart and chronic kidney disease with heart failure and with stage 5 chronic kidney disease, or end stage renal disease (principal); J96.10 Chronic respiratory failure, unspecified whether with hypoxia or hypercapnia; N18.6 End stage renal disease; E11.22 Type 2 diabetes mellitus with diabetic chronic kidney disease; I50.33 Acute on chronic diastolic (congestive) heart failure; D63.1 Anemia in chronic kidney disease; E87.5 Hyperkalemia; J44.9 Chronic obstructive pulmonary disease, unspecified; F17.210 Nicotine dependence, cigarettes, uncomplicated; Z82.3 Family history of stroke; Z82.49 Family history of ischemic heart disease and other diseases of the circulatory system; Z83.3 Family history of diabetes mellitus; Z91.19 Patient's noncompliance with other medical treatment and regimen; Z99.2 Dependence on renal dialysis; Z99.81 Dependence on supplemental oxygen
CPT/HCPCS: 36415; 71045; 80053; 80061; 82550; 82962; 83036; 83735; 83880; 84100; 84443; 84484; 85007; 85025; 85027; 85610; 85652; 85730; 86141; 87081; 90935; 93005; 93970; 94640; 94761; 96374; J0885; J1815

== ENCOUNTER 2018-04-07 19:46 | Inpatient (IN) | payer MEDICAID ==
[~2018-04-07] VITALS: Ht 165.1 cm; Wt 87.6 kg
[2018-04-07 21:55] LABS: Basophils # (auto) 0 uL; Eosinophils # (auto) 0.1 uL; Hematocrit 26.3 % (41.0-53.0); Hemoglobin 8.3 g/dL (13.5-17.5); Lymphocytes # (auto) 0.5 uL; Monocytes # (auto) 0.3 uL; Neutrophils # (auto) 2.1 uL; Red Cell Distribution Width 17.7 % (11.8-14.3); White Blood Cell 3.1 10^3/uL (4.4-10.8)
[2018-04-07 21:56] LABS: Eosinophils % (auto) 3.9 % (0.0-7.0); Lymphocytes % (auto) 17.3 % (10.0-50.0); Mean Corpuscular Hemoglobin 27.9 pg (28.0-32.0); Mean Corpuscular Hgb Conc. 31.7 g/dL (32.0-36.0); Monocytes % (auto) 10.2 % (0.0-12.0); Neutrophils % (auto) 67.6 % (37.0-80.0); Nucleated Red Blood Cells % 0.5 %; Platelet Count (auto) 50 10^3/uL (140-450); Red Blood Cells 2.99 10^6/uL (4.5-5.90)
[2018-04-07 22:02] LABS: INR 1.15 (0.9-1.15); Partial Thromboplastin Time 29.7 sec (23.78-33.04); Prothrombin Time 12.2 sec (9.27-12.13)
[2018-04-07 22:10] LABS: Albumin 3.2 g/dL (3.4-5.0); BUN/Creatinine Ratio 6.3; Bilirubin, Total 0.4 mg/dL (0.2-1.0); Calcium 6.1 mg/dL (8.5-10.1); Magnesium 2.4 mg/dL (1.6-2.6); Potassium 4.8 mmol/L (3.5-5.1); Total Protein 7.4 g/dL (6.4-8.2)
[2018-04-07] MEDS ORDERED: HYDROcodone-ACET 7.5/325MG TAB PO ONE (22:15)
[2018-04-07] MEDS ORDERED: ALBUTEROL SULF 2.5 MG/0.5ML(0.5%) NEB SOLN NEB ONE (23:45)
[2018-04-07] MEDS ORDERED: IPRATROPIUM BROM 0.5 MG/2.5ML INH SOL NEB ONE (23:45)
[2018-04-08] VITALS (7 sets, daily range): BP systolic 124–182; BP diastolic 62–97
[2018-04-08] MEDS ORDERED: ENALAPRILAT 1.25 MG/ML-1ML VIAL IV ONE (01:15)
[2018-04-08] MEDS ORDERED: HYDROcodone-ACET 7.5/325MG TAB PO ONE (01:30)
[2018-04-08] MEDS ORDERED: ACETAMINOPHEN 325 MG TAB PO PRN (02:45)
[2018-04-08] MEDS ORDERED: NITROGLYCERIN 0.4 MG SL TAB SL PRN (02:45)
[2018-04-08] MEDS ORDERED: DEXTROSE (50%) 50ML SYRG IV PRN (02:45)
[2018-04-08] MEDS ORDERED: ONDANSETRON HCL 4 MG/2 ML VIAL IV PRN (02:45)
[2018-04-08] MEDS ORDERED: FUROSEMIDE 20 MG/2 ML VIAL IV ONE (02:45)
[2018-04-08] MEDS ORDERED: MORPHINE SULFATE 4 MG/ML SYR/VIAL IV PRN (02:45)
[2018-04-08] MEDS: HYDROcodone-ACET 5/325MG TAB PO PRN ×3 (05:13→20:19)
[2018-04-08] MEDS: InsuLIN REG 1unit/0.01ml Soln (100units/ml) SC SCH ×3 (06:00→18:00)
[2018-04-08] MEDS: FUROSEMIDE 40 MG TAB PO SCH ×2 (06:18→18:02)
[2018-04-08] MEDS: ACCU-CHEK COMFORT CURVE STRIP VI SCH ×3 (06:18→18:03)
[2018-04-08] MEDS: ALBUTEROL SULF 2.5 MG/0.5ML(0.5%) NEB SOLN NEB PRN ×3 (06:33→14:22)
[2018-04-08] MEDS: PANTOPRAZOLE 40 MG TAB PO SCH (08:16)
[2018-04-08] MEDS: hydrALAZINE HCL 25 MG TAB PO SCH (08:16)
[2018-04-08] MEDS: amLODIPine BESYLATE 5 MG TAB PO SCH (08:16)
[2018-04-08] MEDS ORDERED: ALBUTEROL SULF 2.5 MG/0.5ML(0.5%) NEB SOLN NEB SCH (15:15)
[2018-04-08] MEDS ORDERED: LACTULOSE 20Gm/30ML SOLN PO ONE (15:45)
[2018-04-08] MEDS: ALBUTEROL SULF 2.5 MG/0.5ML(0.5%) NEB SOLN NEB SCH ×2 (18:19→22:10)
[2018-04-08] MEDS: cloNIDine HCL 0.1 MG TAB PO PRN (20:19)
[2018-04-08] MEDS: cloNIDine HCL 0.1 MG TAB PO SCH (21:37)
[2018-04-08] MEDS: TEMAZEPAM 15 MG CAP PO PRN (21:37)
[2018-04-08] MEDS: LACTULOSE 20Gm/30ML SOLN PO SCH (21:38)
[2018-04-08] MEDS ORDERED: ALBUTEROL SULF 2.5 MG/0.5ML(0.5%) NEB SOLN NEB ONE (23:00)
[2018-04-09] VITALS (7 sets, daily range): BP systolic 150–164; BP diastolic 69–89
[2018-04-09] MEDS: ACCU-CHEK COMFORT CURVE STRIP VI SCH ×5 (00:15→23:52)
[2018-04-09] MEDS: ALBUTEROL SULF 2.5 MG/0.5ML(0.5%) NEB SOLN NEB SCH ×6 (02:22→22:39)
[2018-04-09] MEDS ORDERED: SODIUM CHLORIDE 0.9 % NEB SOLN 3ML NEB ONE ×4 (05:47→16:09)
[2018-04-09] MEDS: FUROSEMIDE 40 MG TAB PO SCH ×2 (05:53→17:43)
[2018-04-09] MEDS: HYDROcodone-ACET 5/325MG TAB PO PRN ×2 (05:54→17:44)
[2018-04-09] MEDS: cloNIDine HCL 0.1 MG TAB PO PRN (05:54)
[2018-04-09] MEDS: InsuLIN REG 1unit/0.01ml Soln (100units/ml) SC SCH ×5 (05:55→23:52)
[2018-04-09] MEDS: methylPREDNISolone SOD SUCC 40 MG/ML VL IV SCH ×2 (10:31→21:55)
[2018-04-09] MEDS: hydrALAZINE HCL 25 MG TAB PO SCH (10:33)
[2018-04-09] MEDS: PANTOPRAZOLE 40 MG TAB PO SCH (10:34)
[2018-04-09] MEDS: LACTULOSE 20Gm/30ML SOLN PO SCH ×2 (10:34→21:56)
[2018-04-09] MEDS: amLODIPine BESYLATE 5 MG TAB PO SCH (10:34)
[2018-04-09] MEDS: cloNIDine HCL 0.1 MG TAB PO SCH ×2 (10:34→21:55)
[2018-04-09] MEDS: DOXYCYCLINE 100MG/250ML 250 ML IV SCH ×2 (10:35→21:55)
[2018-04-09] MEDS ORDERED: EPOETIN ALFA 10,000 UNIT/1 ML VIAL IV ONE (12:30)
[2018-04-09] MEDS ORDERED: SODIUM CHL 0.9% 1000 ML BAG XX ONE (12:30)
[2018-04-09 12:48] LABS: Basophils # (auto) 0 uL; Eosinophils # (auto) 0.1 uL; Lymphocytes # (auto) 0.4 uL; Mean Corpuscular Hemoglobin 27.3 pg (28.0-32.0); Monocytes # (auto) 0.2 uL; Red Blood Cells 2.94 10^6/uL (4.5-5.90); White Blood Cell 2.9 10^3/uL (4.4-10.8)
[2018-04-09 12:49] LABS: Basophils % (auto) 0.7 % (0.0-2.0); Eosinophils % (auto) 2.4 % (0.0-7.0); Hematocrit 25.8 % (41.0-53.0); Lymphocytes % (auto) 12.7 % (10.0-50.0); Mean Corpuscular Hgb Conc. 31.1 g/dL (32.0-36.0); Mean Corpuscular Volume 87.7 fL (80.0-100.0); Neutrophils # (auto) 2.3 uL; Neutrophils % (auto) 78.2 % (37.0-80.0); Platelet Count (auto) 71 10^3/uL (140-450); Red Cell Distribution Width 17.7 % (11.8-14.3)
[2018-04-09 13:02] LABS: Albumin 3.1 g/dL (3.4-5.0); BUN/Creatinine Ratio 6.8; Calcium 6.3 mg/dL (8.5-10.1)
[2018-04-09 13:05] LABS: Bilirubin, Total 0.5 mg/dL (0.2-1.0); Total Protein 7.1 g/dL (6.4-8.2)
[2018-04-09 13:14] LABS: Potassium 5.6 mmol/L (3.5-5.1)
[2018-04-09] MEDS: TEMAZEPAM 15 MG CAP PO PRN (21:56)
[2018-04-09] MEDS ORDERED: MORPHINE SULFATE 8mg/ml INJ SDV IV PRN (22:00)
[2018-04-10] MEDS: ALBUTEROL SULF 2.5 MG/0.5ML(0.5%) NEB SOLN NEB SCH ×3 (02:01→10:43)
[2018-04-10 05:00] VITALS: BP 149/79
[2018-04-10] MEDS: HYDROcodone-ACET 5/325MG TAB PO PRN (05:00)
[2018-04-10] MEDS: FUROSEMIDE 40 MG TAB PO SCH (05:56)
[2018-04-10] MEDS: ACCU-CHEK COMFORT CURVE STRIP VI SCH (05:57)
[2018-04-10] MEDS: InsuLIN REG 1unit/0.01ml Soln (100units/ml) SC SCH (05:58)
[2018-04-10 09:00] VITALS: BP 155/76
[2018-04-10] MEDS ORDERED: HYDROcodone-ACET 5/325MG TAB PO PRN (09:30)
[2018-04-10] MEDS: PANTOPRAZOLE 40 MG TAB PO SCH (10:10)
[2018-04-10] MEDS: hydrALAZINE HCL 25 MG TAB PO SCH (10:10)
[2018-04-10] MEDS: amLODIPine BESYLATE 5 MG TAB PO SCH (10:11)
[2018-04-10] MEDS: cloNIDine HCL 0.1 MG TAB PO SCH (10:11)
[2018-04-10] MEDS: LACTULOSE 20Gm/30ML SOLN PO SCH (10:12)
[2018-04-10] MEDS: methylPREDNISolone SOD SUCC 40 MG/ML VL IV SCH (10:12)
[2018-04-10] MEDS: DOXYCYCLINE 100MG/250ML 250 ML IV SCH (10:14)
[2018-04-10] MEDS ORDERED: EPOETIN ALFA 10,000 UNIT/1 ML VIAL IV ONE (10:45)
[2018-04-10] MEDS ORDERED: SODIUM CHL 0.9% 1000 ML BAG XX ONE (10:45)
[2018-04-10] MEDS ORDERED: LIDOCAINE 2% (LOCAL ANESTH.) PF 5ml SDV ONE (10:55)
[2018-04-10 11:00] VITALS: BP 155/76
[2018-04-10] MEDS ORDERED: SEVELAMER 800 MG TAB PO SCH (12:00)
[2018-04-11] MEDS ORDERED: SODIUM CHL 0.9% 1000 ML BAG XX ONE (09:00)
[2018-04-11] MEDS ORDERED: EPOETIN ALFA 10,000 UNIT/1 ML VIAL IV ONE (09:00)
== END 2018-04-10 12:00 | disposition left against medical advice (07) | DRG 133 ==
LOC: ER 19:46 → TELE 19:47 → TELE-CENTR 04-08 04:45
PROVIDERS: ADMIT Nurse Practitioner; ATTEND Internal Medicine
PROC: 5A1D70Z Performance of Urinary Filtration, Intermittent, Less than 6 Hours Per Day (ICD-10-PCS; 2018-04-09)
PROC: 0W9B3ZZ Drainage of Left Pleural Cavity, Percutaneous Approach (ICD-10-PCS; principal; 2018-04-10)
DX: J96.00 Acute respiratory failure, unspecified whether with hypoxia or hypercapnia (principal); I50.43 Acute on chronic combined systolic (congestive) and diastolic (congestive) heart failure; N18.6 End stage renal disease; E11.22 Type 2 diabetes mellitus with diabetic chronic kidney disease; I13.2 Hypertensive heart and chronic kidney disease with heart failure and with stage 5 chronic kidney disease, or end stage renal disease; G89.4 Chronic pain syndrome; I50.9 Heart failure, unspecified; D63.8 Anemia in other chronic diseases classified elsewhere; W10.9XXA Fall (on) (from) unspecified stairs and steps, initial encounter; M25.511 Pain in right shoulder; E11.51 Type 2 diabetes mellitus with diabetic peripheral angiopathy without gangrene; E83.39 Other disorders of phosphorus metabolism; K74.60 Unspecified cirrhosis of liver; Z53.21 Procedure and treatment not carried out due to patient leaving prior to being seen by health care provider; M25.512 Pain in left shoulder; I67.2 Cerebral atherosclerosis; E83.51 Hypocalcemia; F17.210 Nicotine dependence, cigarettes, uncomplicated; J44.9 Chronic obstructive pulmonary disease, unspecified; Z82.3 Family history of stroke; Z82.49 Family history of ischemic heart disease and other diseases of the circulatory system; Z99.2 Dependence on renal dialysis; Z87.01 Personal history of pneumonia (recurrent); Z83.3 Family history of diabetes mellitus; Z91.15 Patient's noncompliance with renal dialysis; Z91.19 Patient's noncompliance with other medical treatment and regimen; Z91.81 History of falling; Y93.89 Activity, other specified; Y92.89 Other specified places as the place of occurrence of the external cause; Y99.8 Other external cause status
CPT/HCPCS: 10022; 36415; 70450; 71045; 72125; 73000; 73030; 73502; 76604; 76942; 80053; 82962; 83735; 83880; 84100; 84484; 85025; 85610; 85730; 87081; 90935; 93005; 94640; 96374; 96375; J0885; J1642; J1815; J2270; J3490

== ENCOUNTER 2018-04-12 15:37 | Observation (INO) | payer MEDICAID ==
[~2018-04-12] VITALS: Ht 165.1 cm; Wt 81.6 kg
[2018-04-12] MEDS ORDERED: HYDROcodone-ACET 10/325MG TAB PO ONE (16:15)
[2018-04-12 17:07] LABS: Albumin 3.7 g/dL (3.4-5.0); BUN/Creatinine Ratio 8.6; Bilirubin, Total 0.5 mg/dL (0.2-1.0); Calcium 6.6 mg/dL (8.5-10.1); Magnesium 2.8 mg/dL (1.6-2.6); Potassium 5.4 mmol/L (3.5-5.1); Total Protein 7.9 g/dL (6.4-8.2)
[2018-04-12 17:56] VITALS: BP 145/88
[2018-04-12] MEDS ORDERED: SODIUM POLYSTYRENE SULF 15GM/60ML SUSP PO ONE (18:00)
== END 2018-04-12 18:04 | disposition left against medical advice (07) | DRG 140 ==
LOC: EDUNIT# 15:37 → ER 15:37 → EDBD 15:37 → OVERFLOW 15:38 → ER 18:02
PROVIDERS: ADMIT Family Medicine; ATTEND Family Medicine
DX: J44.9 Chronic obstructive pulmonary disease, unspecified (principal); I13.2 Hypertensive heart and chronic kidney disease with heart failure and with stage 5 chronic kidney disease, or end stage renal disease; N18.6 End stage renal disease; E11.52 Type 2 diabetes mellitus with diabetic peripheral angiopathy with gangrene; E11.22 Type 2 diabetes mellitus with diabetic chronic kidney disease; D63.8 Anemia in other chronic diseases classified elsewhere; I50.42 Chronic combined systolic (congestive) and diastolic (congestive) heart failure; F17.210 Nicotine dependence, cigarettes, uncomplicated; F41.9 Anxiety disorder, unspecified; Z82.3 Family history of stroke; Z83.3 Family history of diabetes mellitus; Z99.2 Dependence on renal dialysis
CPT/HCPCS: 36415; 71045; 80053; 83605; 83735; 83880; 84484; 87040; 93005; 99285; G0378

== ENCOUNTER 2018-04-17 14:04 | Inpatient (IN) | payer MEDICAID ==
[~2018-04-17] VITALS: Ht 165.1 cm; Wt 86.4 kg
[2018-04-17] MEDS ORDERED: cefTRIAXone 1GM/10ml IVPUSH 10 ML IV ONE (15:30)
[2018-04-17] MEDS ORDERED: AZITHROMYCIN 500MG/ 250ML 250 ML IV ONE (15:30)
[2018-04-17] MEDS ORDERED: ACETAMINOPHEN 500 MG TAB PO PRN (16:00)
[2018-04-17] MEDS ORDERED: HYDROcodone-ACET 5/325MG TAB PO PRN ×2 (16:00→16:15)
[2018-04-17] MEDS ORDERED: LACTULOSE 20Gm/30ML SOLN PO PRN (16:00)
[2018-04-17] MEDS ORDERED: NITROGLYCERIN 0.4 MG SL TAB SL PRN (16:00)
[2018-04-17] MEDS ORDERED: DEXTROSE (50%) 50ML SYRG IV PRN (16:00)
[2018-04-17] MEDS ORDERED: MORPHINE SULFATE 8mg/ml INJ SDV IV PRN ×2 (16:00)
[2018-04-17] MEDS ORDERED: TEMAZEPAM 15 MG CAP PO PRN (16:00)
[2018-04-17] MEDS ORDERED: LORazepam 0.5 MG TAB PO PRN (16:00)
[2018-04-17] MEDS ORDERED: PROMETHAZINE HCL 25 MG/ML 1ML IV PRN (16:00)
[2018-04-17] MEDS ORDERED: ENOXAPARIN SOD 30 MG/0.3 ML SYRINGE SC SCH (16:30)
[2018-04-17 17:30] LABS: INR 1.04 (0.9-1.15); Partial Thromboplastin Time 26.6 sec (23.78-33.04); Prothrombin Time 11.1 sec (9.27-12.13)
[2018-04-17] MEDS ORDERED: FUROSEMIDE 40 MG/4 ML VIAL IV SCH (18:00)
[2018-04-17] MEDS: IPRATROPIUM BROM 0.5 MG/2.5ML INH SOL NEB SCH (18:59)
[2018-04-17] MEDS: ALBUTEROL SULF 2.5 MG/0.5ML(0.5%) NEB SOLN NEB SCH (18:59)
[2018-04-17 19:19] LABS: BUN/Creatinine Ratio 6.6
[2018-04-17 19:20] LABS: Albumin 3.4 g/dL (3.4-5.0); Bilirubin, Total 0.5 mg/dL (0.2-1.0); Calcium 6.4 mg/dL (8.5-10.1); Total Protein 8.2 g/dL (6.4-8.2)
[2018-04-17] MEDS: InsuLIN REG 1unit/0.01ml Soln (100units/ml) SC SCH ×2 (20:15→22:00)
[2018-04-17] MEDS: ACCU-CHEK COMFORT CURVE STRIP VI SCH ×2 (20:15→22:09)
[2018-04-17] MEDS ORDERED: SODIUM POLYSTYRENE SULF 15GM/60ML SUSP PO ONE (20:15)
[2018-04-17 21:00] VITALS: BP 102/68
[2018-04-17] MEDS ORDERED: MORPHINE SULF INJ 2 MG/ML SYRINGE 1ML IV PRN (21:45)
[2018-04-17] MEDS ORDERED: SODIUM CHLOR 0.9% PF (SALINE LOCK) 10ML VIAL/SYR IV SCH (22:00)
[2018-04-17] MEDS ORDERED: FAMOTIDINE 20 MG TAB PO SCH (22:00)
[2018-04-17] MEDS ORDERED: traMADol HCL 50 MG TAB PO SCH (22:00)
[2018-04-17] MEDS: ALBUTEROL SULF 2.5 MG/0.5ML(0.5%) NEB SOLN NEB PRN (22:43)
[2018-04-17 22:58] VITALS: BP 92/50
[2018-04-17 23:19] VITALS: BP 92/58
[2018-04-18 01:49] LABS: Basophils # (auto) 0.1 uL; Eosinophils # (auto) 0.2 uL; Lymphocytes # (auto) 0.7 uL; Monocytes # (auto) 0.8 uL; Nucleated Red Blood Cells % 0.3 %; Red Cell Distribution Width 18.9 % (11.8-14.3); White Blood Cell 5.8 10^3/uL (4.4-10.8)
[2018-04-18 01:51] LABS: Eosinophils % (auto) 4.2 % (0.0-7.0); Hematocrit 26.2 % (41.0-53.0); Hemoglobin 8.4 g/dL (13.5-17.5); Lymphocytes % (auto) 12.1 % (10.0-50.0); Mean Corpuscular Hgb Conc. 32.1 g/dL (32.0-36.0); Mean Corpuscular Volume 90.2 fL (80.0-100.0); Monocytes % (auto) 13.5 % (0.0-12.0); Neutrophils % (auto) 69.2 % (37.0-80.0); Platelet Count (auto) 109 10^3/uL (140-450); Red Blood Cells 2.91 10^6/uL (4.5-5.90)
[2018-04-18] MEDS: IPRATROPIUM BROM 0.5 MG/2.5ML INH SOL NEB SCH (01:58)
[2018-04-18] MEDS: ALBUTEROL SULF 2.5 MG/0.5ML(0.5%) NEB SOLN NEB SCH (01:58)
[2018-04-18] MEDS: ALBUTEROL SULF 2.5 MG/0.5ML(0.5%) NEB SOLN NEB PRN (02:42)
[2018-04-18 05:00] VITALS: BP 111/59
[2018-04-18] MEDS ORDERED: cefTRIAXone 1GM/10ml IVPUSH 10 ML IV SCH (09:00)
[2018-04-18] MEDS ORDERED: FAMOTIDINE 20 MG TAB PO SCH (10:00)
[2018-04-18] MEDS ORDERED: AZITHROMYCIN 500MG/ 250ML 250 ML IV SCH (10:00)
[2018-04-18] MEDS ORDERED: hydrALAZINE HCL 25 MG TAB PO SCH (10:00)
[2018-04-18] MEDS ORDERED: amLODIPine BESYLATE 5 MG TAB PO SCH (10:00)
[2018-04-18] MEDS ORDERED: PATIENTS OWN MEDICATION (Hydralazine Hcl 50 MG) PO SCH (10:00)
[2018-04-18] MEDS ORDERED: cloNIDine HCL 0.1 MG TAB PO SCH (10:00)
[2018-04-18] MEDS ORDERED: PATIENTS OWN MEDICATION (Clonidine Hydrochloride (Clonidine Hcl) 1 TAB) PO SCH (10:00)
== END 2018-04-18 06:30 | disposition left against medical advice (07) | DRG 139 ==
LOC: ER 14:04 → TELE 14:05 → TELE-EAST 20:20
PROVIDERS: ADMIT Internal Medicine; ATTEND Internal Medicine
DX: J18.9 Pneumonia, unspecified organism (principal); I50.43 Acute on chronic combined systolic (congestive) and diastolic (congestive) heart failure; J96.10 Chronic respiratory failure, unspecified whether with hypoxia or hypercapnia; N18.6 End stage renal disease; E11.22 Type 2 diabetes mellitus with diabetic chronic kidney disease; K74.60 Unspecified cirrhosis of liver; I13.2 Hypertensive heart and chronic kidney disease with heart failure and with stage 5 chronic kidney disease, or end stage renal disease; J44.0 Chronic obstructive pulmonary disease with (acute) lower respiratory infection; F17.210 Nicotine dependence, cigarettes, uncomplicated; Z53.21 Procedure and treatment not carried out due to patient leaving prior to being seen by health care provider; Z79.899 Other long term (current) drug therapy; Z99.2 Dependence on renal dialysis; Z99.81 Dependence on supplemental oxygen; Z81.1 Family history of alcohol abuse and dependence; Z84.1 Family history of disorders of kidney and ureter; Z82.3 Family history of stroke; Z82.49 Family history of ischemic heart disease and other diseases of the circulatory system; Z83.3 Family history of diabetes mellitus
CPT/HCPCS: 36415; 71045; 80053; 82550; 82962; 83036; 83605; 83880; 84443; 84484; 85025; 85610; 85730; 87040; 87081; 93970; 94640; 96365; 96372; 96375; J1815

== ENCOUNTER 2018-06-05 14:45 | Emergency (ER) | payer MEDICAID ==
[~2018-06-05] VITALS: Ht 165.1 cm; Wt 90.7 kg
[~2018-06-05 14:45] MED LIST changes: +AMLO5TAB2; +ASPI81TA27 PO; +CALC667C PO; +CLON0.1T PO; +CLON0.2T; +DOCU-94 PO; +FURO40TA4; +HYDR10TA26 PO; +INSLANTI; +INSU1MIS; +LACT10SO60; +MULT-777 OR; +SPIR25TA89 PO
[2018-06-05 15:52] LABS: Basophils # (auto) 0 uL; Eosinophils # (auto) 0.2 uL; Hematocrit 27.1 % (41.0-53.0); Lymphocytes # (auto) 0.4 uL; Monocytes # (auto) 0.3 uL; Neutrophils # (auto) 2.4 uL; Red Blood Cells 3.05 10^6/uL (4.5-5.90)
[2018-06-05 15:55] LABS: Basophils % (auto) 0.5 % (0.0-2.0); Eosinophils % (auto) 5.5 % (0.0-7.0); Hemoglobin 8.8 g/dL (13.5-17.5); Lymphocytes % (auto) 13.3 % (10.0-50.0); Mean Corpuscular Hemoglobin 28.8 pg (28.0-32.0); Mean Corpuscular Hgb Conc. 32.4 g/dL (32.0-36.0); Mean Corpuscular Volume 88.8 fL (80.0-100.0); Neutrophils % (auto) 70.7 % (37.0-80.0); Nucleated Red Blood Cells % 0.1 %; Red Cell Distribution Width 18.6 % (11.8-14.3); White Blood Cell 3.3 10^3/uL (4.4-10.8)
[2018-06-05 16:03] LABS: Platelet Count (auto) 55 10^3/uL (140-450)
[2018-06-05 16:08] LABS: Albumin 3.2 g/dL (3.4-5.0); BUN/Creatinine Ratio 6.8; Calcium 6.8 mg/dL (8.5-10.1)
[2018-06-05 16:13] LABS: Bilirubin, Total 0.5 mg/dL (0.2-1.0); Total Protein 7.6 g/dL (6.4-8.2)
[2018-06-05] MEDS ORDERED: IPRATROPIUM BROM 0.5 MG/2.5ML INH SOL NEB ONE (21:45)
[2018-06-05] MEDS ORDERED: ALBUTEROL SULF 2.5 MG/0.5ML(0.5%) NEB SOLN NEB ONE (21:45)
[2018-06-05] MEDS ORDERED: HYDROcodone-ACET 10/325MG TAB PO ONE (22:45)
[2018-06-05] MEDS ORDERED: FUROSEMIDE 20 MG/2 ML VIAL IV ONE (22:45)
[2018-06-06 00:21] VITALS: BP 148/65
== END 2018-06-06 00:37 | disposition home or self-care (01) ==
LOC: ER 14:49
DX: J44.9 Chronic obstructive pulmonary disease, unspecified (principal); F19.10 Other psychoactive substance abuse, uncomplicated; E11.22 Type 2 diabetes mellitus with diabetic chronic kidney disease; I13.2 Hypertensive heart and chronic kidney disease with heart failure and with stage 5 chronic kidney disease, or end stage renal disease; N18.6 End stage renal disease; I50.9 Heart failure, unspecified; F17.210 Nicotine dependence, cigarettes, uncomplicated; Z99.2 Dependence on renal dialysis
CPT/HCPCS: 36415; 71045; 80053; 82962; 83605; 83880; 84484; 85025; 87040; 93005; 94640; 96374; 99285; J1940